=== PATIENT | male | born 1940 | race Caucasian/White ===

== ENCOUNTER 2022-05-11 12:25 | Inpatient (IN) | payer OTHER ==
[~2022-05-11] VITALS: Ht 170.2 cm; Wt 78.0 kg
[2022-05-11] MEDS ORDERED: Simvastatin20 MG PO (13:16)
[2022-05-11] MEDS ORDERED: FINA5 (13:17)
[2022-05-11] MEDS ORDERED: ADALAT CC30 M1 PO (13:17)
[2022-05-11] MEDS ORDERED: TAMS.4ER PO (13:18)
[2022-05-11] MEDS ORDERED: LISI5 (13:18)
[2022-05-11] MEDS ORDERED: BISOPROLOL-HCT1 EAC2 PO (13:18)
[2022-05-11] MEDS ORDERED: TIMO10T (13:20)
[2022-05-11] MEDS ORDERED: FURO20 PO (13:20)
[2022-05-11] MEDS ORDERED: PANT40 (13:20)
[2022-05-11] MEDS ORDERED: 1/2 NS 250ml250 ML (13:21)
[2022-05-11 13:39] LABS: BASOPHILS ABSOLUTE AUTO 0.04 K/mm3 (0.00-0.23); BASOPHILS PERCENT AUTO 0 % (0-2); EOSINOPHILS ABSOLUTE AUTO 0.08 K/mm3 (0.00-0.68); EOSINOPHILS PERCENT AUTO 0 % (0-6); Hematocrit 33.9 % (37.0-53.0); Hemoglobin 11.6 g/dL (13.5-17.5); IMMATURE GRAN ABSOLUTE AUTO 0.14 K/mm3 (0.00-0.10); IMMATURE GRAN PERCENT AUTO 1 % (0-1); LYMPHOCYTES ABSOLUTE AUTO 0.97 K/mm3 (0.84-5.20); LYMPHOCYTES PERCENT AUTO 5 % (21-46); MONOCYTES ABSOLUTE AUTO 1.61 K/mm3 (0.16-1.47); MONOCYTES PERCENT AUTO 8 % (4-13); Mean Corpuscular HGB 34.6 pg (26.0-34.0); Mean Corpuscular HGB Conc 34.2 g/dL (31.5-36.5); Mean Corpuscular Volume 101 fL (80-100); Mean Platelet Volume 9.7 fL (9.1-12.4); NEUTROPHILS PERCENT AUTO 85 % (41-73); Platelet Count 349 K/mm3 (150-400); RDW Coefficient Variation 13.1 % (11.7-14.2); RDW Standard Deviation 48.9 fL (35.1-46.3); Red Blood Cell Count 3.35 M/mm3 (4.30-5.90); White Blood Cell Count 19.34 K/mm3 (4.00-11.30)
[2022-05-11 13:40] LABS: Albumin, Blood 2.6 g/dL (3.4-5.0); Albumin/Globulin Ratio 0.5 (0.8-1.8); Bilirubin, Total 0.4 mg/dL (0.1-1.0); Bun/Creatinine Ratio 23.8 (12.0-20.0); Calcium, Blood 10.4 mg/dL (8.5-10.1); Creatinine, Blood 2.35 mg/dL (0.60-1.20); Globulin, Blood 4.8 g/dL (2.2-4.0); Potassium, Blood 3.5 mmol/L (3.5-5.5); Total Protein, Blood 7.4 g/dL (6.4-8.2)
[2022-05-11 16:10] LABS: Base Excess Venous 6.5 mmol/L; Bicarbonate Venous 29.6 mmol/L (24.0-30.0); PCO2 Venous 42.6 mmHg (38-42); pH Blood Venous 7.46 (7.34-7.37)
[2022-05-11 17:01] LABS: Source, Urine Foley catheter
[2022-05-11 17:28] LABS: Uric Acid, Blood 7.1 mg/dL (3.5-7.2)
[2022-05-11 17:30] LABS: Thyroid Stimulating Hormone 3.19 uIU/mL (0.360-4.800)
[2022-05-11 17:39] LABS: Bilirubin, Urine Neg (Neg); Blood, Urine 1+ (Neg); Color, Urine Yellow (P-Yellow); Glucose Qualitative, Urine Neg (Neg); Ketones, Urine Neg (Neg); Leukocyte Esterase, Urine Neg (Neg); Nitrite, Urine Neg (Neg); Protein, Urine 2+ (Neg); Specific Gravity, Urine 1.015 (1.003-1.022); Urobilinogen, Urine NORM (Normal)
[2022-05-11 17:53] LABS: Appearance, Urine Clear (Clear)
[2022-05-11 17:55] LABS: Amorphous Light (0-Heavy); Bacteria Mod /hpf; Red Blood Cells, Urine 0-2 /hpf (0-2); Squamous Epithelial Cells Few /hpf (Few)
--- NOTE | 2022-05-11 18:58 | NUR ---
PCU ADMIT PT BROUGHT TO PCU-12 BY SANYA FROM ER @ APPROX 1830. PT A&O X3, ABLE TO STAND & AMBULATE FROM [facility] TO PCU BED W/ SBA. PT VSS. SPO2 > 92% ON RA. MONITOR SHOWING SR, HR 60s. PT ABD SEVERELY DISTENDED. PT REPORTING TENDERNESS W/ PALPATION TO ABD RLQ. PT REPORTS LAST BM "ABOUT 4 WEEKS AGO. THAT'S ABOUT WHEN I STOPPED EATING TOO." PT NPO. NS GTT INFUSING PER ORDERS.
[2022-05-12 06:08] LABS: BASOPHILS ABSOLUTE AUTO 0.04 K/mm3 (0.00-0.23); BASOPHILS PERCENT AUTO 0 % (0-2); EOSINOPHILS ABSOLUTE AUTO 0.15 K/mm3 (0.00-0.68); EOSINOPHILS PERCENT AUTO 1 % (0-6); Hematocrit 32.1 % (37.0-53.0); Hemoglobin 10.7 g/dL (13.5-17.5); IMMATURE GRAN ABSOLUTE AUTO 0.11 K/mm3 (0.00-0.10); IMMATURE GRAN PERCENT AUTO 1 % (0-1); LYMPHOCYTES ABSOLUTE AUTO 0.58 K/mm3 (0.84-5.20); LYMPHOCYTES PERCENT AUTO 4 % (21-46); MONOCYTES ABSOLUTE AUTO 1.19 K/mm3 (0.16-1.47); MONOCYTES PERCENT AUTO 8 % (4-13); Mean Corpuscular HGB 34.1 pg (26.0-34.0); Mean Corpuscular HGB Conc 33.3 g/dL (31.5-36.5); Mean Corpuscular Volume 102 fL (80-100); Mean Platelet Volume 9.2 fL (9.1-12.4); NEUTROPHILS ABSOLUTE AUTO 13.04 K/mm3 (1.96-9.15); NEUTROPHILS PERCENT AUTO 86 % (41-73); Platelet Count 317 K/mm3 (150-400); RDW Coefficient Variation 13.1 % (11.7-14.2); RDW Standard Deviation 49.1 fL (35.1-46.3); Red Blood Cell Count 3.14 M/mm3 (4.30-5.90); White Blood Cell Count 15.11 K/mm3 (4.00-11.30)
[2022-05-12 06:25] LABS: Albumin, Blood 2.2 g/dL (3.4-5.0); Albumin/Globulin Ratio 0.5 (0.8-1.8); Bilirubin, Total 0.4 mg/dL (0.1-1.0); Bun/Creatinine Ratio 33.3 (12.0-20.0); Calcium, Blood 9.3 mg/dL (8.5-10.1); Creatinine, Blood 1.47 mg/dL (0.60-1.20); Globulin, Blood 4.1 g/dL (2.2-4.0); Potassium, Blood 3.2 mmol/L (3.5-5.5); Total Protein, Blood 6.3 g/dL (6.4-8.2)
--- NOTE | 2022-05-12 06:33 | NUR ---
NOC SHIFT SUMMARY PT SLEPT WELL OVERNIGHT. ORIENTED X4, MODOC AND LEGALLY BLIND. PLEASANT AND COOPERATIVE. SR ON TELMETRY, VSS PER PT TREND. ON RA. ABD SEVERELY DISTENDED, ABSENT BOWEL SOUNDS NOTED. NOTIFIED DR. PHAN AND BOWEL MEDS ORDERED. PT NPO OVERNIGHT, SIPS WITH MEDS. DENIES PAIN EXCEPT WITH MOVEMENT. SURGERY CONSULT PENDING. WILL PASS ON TO DAY RN
[2022-05-12 08:36] LABS: Magnesium, Blood 2.9 mg/dL (1.6-2.4); Phosphorus, Blood 3.9 mg/dL (2.5-4.9)
[2022-05-12 12:53] LABS: SARS-Cov-2 (COVID-19) PCR, MMC NEGATIVE (NEGATIVE)
--- NOTE | 2022-05-12 13:39 | NUR ---
Spiritual Care Visit. Pt. is resting in bed but responds when I enter the room. Pts. son is present. Pt. is unsettled by the discomfort from his bowel blockage, and displays evidence of visceral pain with any pressure on his abdomen (This occured when his son was adjusting the bed covers). Establish rapport with Pt. At. sons request prayed for Pt. Both Pt. and son verbalize gratitude for the spiritual care visit.
--- NOTE | 2022-05-12 14:16 | NUR ---
05/12/22 1416 Macie Maldonado History, Chart, Medications and Allergies reviewed before start of procedure.DR ESPINAL PROVIDES ANESTHESIA SEE RECORDS
--- NOTE | 2022-05-12 14:19 | NUR ---
PT TO UNIT VIA [facility] FROM [facility]. PT UNABLE TO STAND AND TRANSFER TO BED. PCU STAFF HELPED TRANSFER PT. VSS. Patient confirms NPO status and agrees with scheduled surgery.
--- NOTE | 2022-05-12 17:39 | NUR ---
END OF SHIFT NOTE PT A&O X3, FORGETFUL AT TIMES. VSS. SPO2 > 92% ON RA. MONITOR SHOWING SR, HR 80s. ABD REMAINS SEVERELY DISTENDED. SUPPOSITORY GIVEN PER EMAR W/ NO RESULTS. FLEET ENEMA GIVEN X2 PER EMAR W/ LIQUID BROWN STOOL OUT & THEN SMALL BROWN LUMPY STOOL PRODUCED. PT TAKEN TO OR FOR SIGMOIDOSCOPY. PT BACK TO ROOM. MD TRENT TO PT BEDSIDE TO SPEAK W/ PT & PT SON & DAUGHTER IN . PLAN FOR PT TO BE SEEN BY MD FITZGERALD TOMORROW AM FOR POTENTIAL SURGERY TOMORROW. PT NPO.
[2022-05-13 05:36] LABS: Source, Urine Foley catheter
[2022-05-13 05:55] LABS: Appearance, Urine Hazy (Clear); Bilirubin, Urine Neg (Neg); Blood, Urine Neg (Neg); Color, Urine Yellow (P-Yellow); Glucose Qualitative, Urine Neg (Neg); Ketones, Urine 2+ (Neg); Leukocyte Esterase, Urine Neg (Neg); Nitrite, Urine Neg (Neg); Protein, Urine 2+ (Neg); Urobilinogen, Urine NORM (Normal)
--- NOTE | 2022-05-13 05:57 | NUR ---
Assumed care of pt at 1900. A/Ox4. Legally blind. Able to make needs known. Maintains over 95% on RA. LS clear on top and dim at bases. Shallow breathing pattern. SR on tele with PVC's in the 70's. VSS. Denies any CP/pressure. Did c/o pain once during the night with cath insertion and rolling to do bed change, medicated per emar with great effect. Strong +2 radial pulses bl, and faint +1 tibial and pedals bl. Severe abdominal distention, tender to palpation with guarding noted. Abdomen seems to be getting slightly red. Tympanic URQ and ULQ bowel tones and absent in LLQ and RLQ. Patient began getting a temp, Tmax 100.3. Removed excess blankets, applied fan, Tylenol given. Patient NPO for procedure. Denies N/V. Agrawal cath inserted this am, urinalysis sent. Draining cloudy yellow urine. Cool skin. Scabbing/rash and bruising scattered t/o. Will report to samuel BREAUX.
[2022-05-13 06:08] LABS: Bacteria Few /hpf; Red Blood Cells, Urine 0-2 /hpf (0-2); Squamous Epithelial Cells Few /hpf (Few); White Blood Cells, Urine 0-2 /hpf (0-5)
[2022-05-13 06:14] LABS: BASOPHILS ABSOLUTE AUTO 0.03 K/mm3 (0.00-0.23); BASOPHILS PERCENT AUTO 0 % (0-2); EOSINOPHILS ABSOLUTE AUTO 0.32 K/mm3 (0.00-0.68); EOSINOPHILS PERCENT AUTO 3 % (0-6); Hematocrit 30.2 % (37.0-53.0); Hemoglobin 10.3 g/dL (13.5-17.5); IMMATURE GRAN ABSOLUTE AUTO 0.21 K/mm3 (0.00-0.10); IMMATURE GRAN PERCENT AUTO 2 % (0-1); LYMPHOCYTES ABSOLUTE AUTO 0.79 K/mm3 (0.84-5.20); LYMPHOCYTES PERCENT AUTO 6 % (21-46); MONOCYTES ABSOLUTE AUTO 1.15 K/mm3 (0.16-1.47); MONOCYTES PERCENT AUTO 9 % (4-13); Mean Corpuscular HGB 34.9 pg (26.0-34.0); Mean Corpuscular HGB Conc 34.1 g/dL (31.5-36.5); Mean Corpuscular Volume 102 fL (80-100); Mean Platelet Volume 9.4 fL (9.1-12.4); NEUTROPHILS ABSOLUTE AUTO 10.47 K/mm3 (1.96-9.15); NEUTROPHILS PERCENT AUTO 81 % (41-73); Platelet Count 316 K/mm3 (150-400); RDW Coefficient Variation 13.2 % (11.7-14.2); RDW Standard Deviation 50.4 fL (35.1-46.3); Red Blood Cell Count 2.95 M/mm3 (4.30-5.90); White Blood Cell Count 12.97 K/mm3 (4.00-11.30)
[2022-05-13 06:38] LABS: Bun/Creatinine Ratio 36.3 (12.0-20.0); Calcium, Blood 8.8 mg/dL (8.5-10.1); Creatinine, Blood 1.13 mg/dL (0.60-1.20); Potassium, Blood 3.3 mmol/L (3.5-5.5)
--- NOTE | 2022-05-13 08:45 | NUR ---
PT GONE TO OR
--- NOTE | 2022-05-13 08:49 | NUR ---
History, Chart, Medications and Allergies reviewed before start of procedure.Pre-Op teaching done. Pt verbalizes understanding. Patient confirms NPO status and agrees with scheduled surgery.
--- NOTE | 2022-05-13 10:02 | NUR ---
Patient gave this student permission to provide care today.
[2022-05-13] MEDS ORDERED: LATANOPROST2.5 M3 BOTHEYES (18:11)
--- NOTE | 2022-05-13 18:50 | NUR ---
END OF SHIFT NOTE PT GONE TO OR FROM APPROX [id number] TODAY. PT BROUGHT BACK FROM OR W/ ILEOSTOMY & ABD MIDLINE DRESSING C/D/I W/ SMALL DRAINAGE ON DRESSING OUTLINED BY OR STAFF PRIOR TO PT ARRIVAL BACK TO UNIT. ABD NO LONGER SEVERELY DISTENDED. PT DENIES PAIN UPON ARRIVAL TO UNIT. EPHRAIM TO PT BEDSIDE. PT REMAINS NPO. EPHRAIM W/ ORDER FOR IV FLUIDS UNTIL SURGEON OKAY FOR PO INTAKE. PT THEN MEDICATED W/ PRN IV FENTANYL PER EMAR X1 THIS SHIFT FOR RETURING ABD PAIN RATED 5/10. PT SLEEPING IN RM. FAMILY AT BEDSIDE. NS GTT INFUSING PER ORDERS. VSS. SPO2 > 92% ON RA. LEON CATH PATENT & DRAINING. ILEOSTOMY W/ NO OUTPUT.
[2022-05-14 04:12] LABS: BASOPHILS ABSOLUTE AUTO 0.03 K/mm3 (0.00-0.23); BASOPHILS PERCENT AUTO 0 % (0-2); EOSINOPHILS ABSOLUTE AUTO 0.01 K/mm3 (0.00-0.68); EOSINOPHILS PERCENT AUTO 0 % (0-6); Hemoglobin 10.3 g/dL (13.5-17.5); IMMATURE GRAN ABSOLUTE AUTO 0.16 K/mm3 (0.00-0.10); IMMATURE GRAN PERCENT AUTO 1 % (0-1); LYMPHOCYTES ABSOLUTE AUTO 0.73 K/mm3 (0.84-5.20); LYMPHOCYTES PERCENT AUTO 6 % (21-46); MONOCYTES ABSOLUTE AUTO 0.69 K/mm3 (0.16-1.47); MONOCYTES PERCENT AUTO 6 % (4-13); Mean Corpuscular HGB 35.2 pg (26.0-34.0); Mean Corpuscular HGB Conc 34.3 g/dL (31.5-36.5); Mean Corpuscular Volume 102 fL (80-100); Mean Platelet Volume 9.8 fL (9.1-12.4); NEUTROPHILS ABSOLUTE AUTO 10.88 K/mm3 (1.96-9.15); NEUTROPHILS PERCENT AUTO 87 % (41-73); NRBC ABSOLUTE 0.02 K/mm3 (0.00-0.02); NRBC Auto 0.2 /100 WBC (0.0-0.2); Platelet Count 313 K/mm3 (150-400); RDW Coefficient Variation 13.5 % (11.7-14.2); RDW Standard Deviation 51.7 fL (35.1-46.3); Red Blood Cell Count 2.93 M/mm3 (4.30-5.90)
[2022-05-14 06:33] LABS: Albumin, Blood 1.5 g/dL (3.4-5.0); Anion Gap 10 mmol/L (6-16); Blood Urea Nitrogen 49 mg/dL (8-24); Bun/Creatinine Ratio 23.1 (12.0-20.0); CO2, Blood 22 mmol/L (21-32); Calcium, Blood 7.7 mg/dL (8.5-10.1); Chloride, Blood 110 mmol/L (98-108); Creatinine, Blood 2.12 mg/dL (0.60-1.20); Glomerular Filtration Rate 30 (60-); Glucose, Blood 163 mg/dL (70-99); Phosphorus, Blood 3.6 mg/dL (2.5-4.9); Potassium, Blood 4.6 mmol/L (3.5-5.5); Sodium, Blood 142 mmol/L (136-145)
--- NOTE | 2022-05-14 06:37 | NUR ---
END OF SHIFT SUMMARY PT VERY SENSITIVE TO DILAUDID. IT WAS EFFECTIVE AT PAIN RELIEVE BUT PT SLEPT HARD. HE WOULD WAKE TO VOICE BUT WHILE SLEEPING WAS MOUTH BREATHING AND HAVING 5-10 SEC APNEA. PUT 5 LITERS NC IN NOSE DID NOT INITIALLY HELP THEN PUT NC IN MOUTH AND NOW SATS MAINTAIN GREATER THAN 90 %. TAUGHT PT HOW TO SPLINT ABDOMENT TO HELP WITH PAIN WHEN COUGHING. PT REPORTS FOR PAST FEW WEEKS HE HAS BEEN COUGHING UP MODERATE AMOUNTS OF SPUTUM. HAD PT COUGH SUCTIONS MOUTH AND ENCOURAGED PT TO COUGH AND DEEP BREATH TO PREVENT LUNG INFECTIONS. WILL GIVE BEDSIDE REPORT TO ONCOMING RN. WILL CONTINUE TO MONITOR.
[2022-05-14 10:33] LABS: PCO2 Arterial 34.5 mmHg (35-45); PO2 Arterial 51.1 mmHg (80-100); pH Blood Arterial 7.47 (7.35-7.45)
--- NOTE | 2022-05-14 11:00 | NUR ---
PT WITH INCREASED O2 DEMAND, SPO2 CONTINUES TO DROP ON HIGH FLOW NASAL CANNULA AND NRB MASK. RT TO BEDSIDE, DR YE AT BEDSIDE, PT PLACED ON BIPAP WITH IMMEDIATE IMPROVEMENT IN SPO2 AND HEART RATE. PT RESTING CALMLY IN BED. FAMILY AT BEDSIDE
--- NOTE | 2022-05-14 12:16 | NUR ---
PT NOW REFUSES TO CONTINUE TO WEAR BIPAP, PT ONLY ALLOWS FOR NASAL CANNULA APPLICATION, HE IS MOUTH BREATHING, CANNULA PLACED IN MOUTH ON 10L WITH SPO2 RANGING HIGH 80s LOW 90s. OTHERWISE VSS.
--- NOTE | 2022-05-14 16:47 | NUR ---
PT FROM AIRVO TO BIPAP SPO2 DROPPED INTO THE 60s THIS RN WAS UNABLE TO GET SPO2 TO RECOVER DESPITE MAXING OUT AIRVO O2 SETTING AND REPOSITIONING. PT RETURNED TO BIPAP, RT CALLED TO ROOM, NEBULIZER TREATMENT IN PROGRESS NOW. BIPAP SETTINGS 12/6 90% FIO2, RR 26, SPO2 89%. PT ALERT REMAINS SLEEPY. BP 128/58.
--- NOTE | 2022-05-14 18:01 | NUR ---
PT HAS BEEN BETWEEN BIPAP, AIRVO AND NASAL CANNULA T/O THE DAY. PT IS CURRENTLY ON BIPAP, WHICH HE IS CONFUSED AND OFTEN DISASSEMBLING THE MASK. PT IS ALERT, THIS AM WAS MORE A/O THAN THIS EVENING, PT HAS PROGRESSIVELY BECAME MORE CONFUSED THE AY HAS WENT ON. NO DRAINAGE NOTED FROM FRANCISCO JAVIER DRAIN TO MIDLINE ABD, SCANT OUTPUT FROM ILEOSTOMY. PT WITH VERY SMALL AMOUNT OF URINE OUTPUT DESPITE LASIX ADMINISTRATION. PT DID HAVE A REPEAT CHEST XRAY TODAY A SMALL PLEURAL EFFUSION NOTED TO LEFT LOBE.
[2022-05-15 04:22] LABS: BASOPHILS ABSOLUTE AUTO 0.03 K/mm3 (0.00-0.23); BASOPHILS PERCENT AUTO 0 % (0-2); EOSINOPHILS ABSOLUTE AUTO 0.17 K/mm3 (0.00-0.68); EOSINOPHILS PERCENT AUTO 1 % (0-6); Hematocrit 27.2 % (37.0-53.0); Hemoglobin 9.2 g/dL (13.5-17.5); IMMATURE GRAN ABSOLUTE AUTO 0.32 K/mm3 (0.00-0.10); IMMATURE GRAN PERCENT AUTO 2 % (0-1); LYMPHOCYTES ABSOLUTE AUTO 0.99 K/mm3 (0.84-5.20); LYMPHOCYTES PERCENT AUTO 7 % (21-46); MONOCYTES PERCENT AUTO 5 % (4-13); Mean Corpuscular HGB 34.8 pg (26.0-34.0); Mean Corpuscular HGB Conc 33.8 g/dL (31.5-36.5); Mean Corpuscular Volume 103 fL (80-100); Mean Platelet Volume 9.4 fL (9.1-12.4); NEUTROPHILS ABSOLUTE AUTO 12.44 K/mm3 (1.96-9.15); NEUTROPHILS PERCENT AUTO 84 % (41-73); NRBC ABSOLUTE 0.02 K/mm3 (0.00-0.02); NRBC Auto 0.1 /100 WBC (0.0-0.2); Platelet Count 299 K/mm3 (150-400); RDW Coefficient Variation 13.6 % (11.7-14.2); RDW Standard Deviation 52.4 fL (35.1-46.3); Red Blood Cell Count 2.64 M/mm3 (4.30-5.90); White Blood Cell Count 14.75 K/mm3 (4.00-11.30)
[2022-05-15 04:37] LABS: Albumin, Blood 1.5 g/dL (3.4-5.0); Anion Gap 8 mmol/L (6-16); Blood Urea Nitrogen 58 mg/dL (8-24); Bun/Creatinine Ratio 20.6 (12.0-20.0); CO2, Blood 27 mmol/L (21-32); Calcium, Blood 7.6 mg/dL (8.5-10.1); Chloride, Blood 107 mmol/L (98-108); Creatinine, Blood 2.81 mg/dL (0.60-1.20); Glomerular Filtration Rate 21 (60-); Glucose, Blood 156 mg/dL (70-99); Phosphorus, Blood 3.5 mg/dL (2.5-4.9); Potassium, Blood 3.6 mmol/L (3.5-5.5); Sodium, Blood 142 mmol/L (136-145)
--- NOTE | 2022-05-15 05:33 | NUR ---
END OF SHIFT SUMMARY PT HAD TO BE PUT ON BIPAP WAS DROPPING SATS INTO LOW 80'S ON HIGH FLOW THIS MORNING. HR WOULD TACH UP TO 150'S BUT QUICKLY GO BACK TO 110-125 RANGE. PT IS FORGETFUL AND INTERMITTENTLY CONFUSED. THOUGHT HE WAS IN [place]. KEEPS ASKING ABOUT LOCATION OF [facility]. PT ONLY HAD ABOUT 500 MLS OF URINE OUT OVERNIGHT BUT DID HAVE 500 MLS OUT OF COLOSTOMY. PT CONFUSION GETTING MORE FREQUENT HARDER TO REDIRECT AND PT GETS IRRITABLE WITH STAFF. WILL GIVE BEDSIDE REPORT TO ONCOMING SHIFT.
--- NOTE | 2022-05-15 12:09 | NUR ---
CARDIZEM DRIP BEGAN AT 5ML/HR WILL TITRATE. HR HIGH 190s. PT ALERT, DENIES CP, REPORTS NO CHANGE IN WORK OF BREATHING. PT HAD RECIEVED 5MG CARDIZEM BOLUS WITH NO CHANGE IN RATE. CT HAS BEEN NOTIFIED THAT VQ SCAN WILL NOT BE POSSIBLE PT IS NOT CURRENTLY STABLE ENOUGH FOR TEST. PT IS ON AIRVO AT THIS TIME, BUT IS NOW BEING SWITCHED TO BIPAP HIS SPO2 WILL NOT STAY ABOVE LOW 80s ON AIRVO.
--- NOTE | 2022-05-15 13:00 | NUR ---
PT TO ICU-4 FROM PCU-12. PT ON BIPAP AT 15L 100% O2, RR 23. LAB IN ROOM FOR DRAW, XRAY HERE. IV CARDIZEM STOPPED, AMIODARONE STARTED AT 1 MCG/MIN WITH ORDERS TO CONTINUE FOR 6 HOURS THEN 0.5 FOR 18 HOURS. PT SKIN ASSESSED WITH NO APPEARANCE OF PRESSURE SORES. LEON CATHETER DRAINING TO GRAVITY WITH YELLOW URINE. AND AREA IS TENDER AROUND SURGICAL AREA WHERE ILEOSTOMY PLACE A FEW DAYS PRIOR. FAMILY AT BEDSIDE AT THIS TIME. SEE ASSESSMENT FOR FURTHER INFORMATION.
--- NOTE | 2022-05-15 13:15 | NUR ---
DR LINDSEY CALLED TO ROOM THERE CHANGE IN HR WITH CARDIZEM AT 15MG/HR. BIPAP SETTINGS ARE ARE MAXED OUT WITH SPO2 REMAINING IN HIGH 80s. DECISION WAS MADE TO TRANSFER PT TO ICU. [facility] ICU CHARGE NURSE TO ROOM TO ASSESS PT. PT WILL BE TRANSFERED TO ICU 4.
--- NOTE | 2022-05-15 13:27 | NUR ---
PT TRANSFERED TO ICU 4, REPORT TO SHERRIE RN IN ICU. PT TRANSFERED TO ICU ON BIPAP 12/10 100% FIO2 SPO2 89%. CARDIZEM DRIP 15ML/HR, HR 190s. DR LINDSEY HAS UPDATED FAMILY OF TRANSFER TO ICU. PT WAS NOT ABLE TO GO FOR V-Q SCAN R/T HR.
--- NOTE | 2022-05-15 13:45 | NUR ---
PT CAME TO ICU-4 AT APPROX 1330. THIS RN DID NOT RECIEVE REPORT FROM RN TRANSFERING PT FROM PCU. SEE ASSESSMENT FOR MORE INFORMATION.
[2022-05-15 14:03] LABS: Anti-Xa UFH, PHA Monitoring <0.10 IU/mL; International Normalized Ratio 1.04; Prothrombin Time Results 10.9 Sec (9.7-11.5)
[2022-05-15 15:50] LABS: Bun/Creatinine Ratio 19.6 (12.0-20.0); Calcium, Blood 7.8 mg/dL (8.5-10.1); Creatinine, Blood 2.96 mg/dL (0.60-1.20); Magnesium, Blood 2.6 mg/dL (1.6-2.4); Potassium, Blood 3.7 mmol/L (3.5-5.5)
--- NOTE | 2022-05-15 18:08 | NUR ---
SUMMARY Assumed care of pt on arrival to ICU 4 from PCU 12 at 1315. Transferred due to upward trend of HR, unresponsive to cardizem, downward trend of BP, and SpO2 <90% despite BiPAP with high pressure and 100% FiO2. Slid from PCU bed to ICU bed using slider sheet and 6 staff. End of shift assessment is as follows: Neuro/Musc/Psych: A&O x 3. Speech difficult to understand beneath BiPAP mask, but pt provides contextually appropriate answers to questions and conversation. Moves all extremities with equal strength and range of motion. Reports widespread abdominal pain. Especially tender on palpation. Pt given pillow and educated on holding it against surgical site when coughing. No pain meds given since arrival to ICU, pt has been able to rest comfortably in absence of stimulation. Pt pleasant and cooperative with care. Respiratory: Intially diminshed breath sounds t/o, but after wearing BiPAP for a while, pt had zoya present to XU. Plan to send sputum culture, however pt has not been able to produce a specmien. Cough is weak and nonproductive. 5 minute break given from BiPAP for oral care. Pt tolerated break for approx 4 minutes and then SpO2 dropped to 70s with 60 LPM and 100% FiO2. Placed back on BiPAP and recovered within 5 mintues. Current BiPAP settings are 16/10 and 80% FiO2. Cardiac: Fast rate atrial fibrillation persists. Reportedly unresponsive to diltiazem. Amiodarone started. Minimal improvement noted. Two fluid boluses of 250 mL given, resulted in improved BP. 2+ pulses radial, pedal, posttibial. Capillary refill <3 seconds BUE and BLE. Generalized dependent edema BUE. GI: Normal BT in all quadrants. Tender on palpation in all quadrants. Illeostomy to RLQ has residual output in collection bag that is brown and liquid in appearance. Dr Prince is aware of pt's abdominal tenderness and states this is expected considering the extent of abdominal surgery performed. States that pt is allowed to have PO intake as long as he is not at risk of aspiration. : Agrawal catheter in place, patent and draining clear yellow urine. Skin: Abd midline incision covered with FRANCISCO JAVIER dressing C/D/I, per documentation, pt is POD 2. No signs of pressure injury to sacrum. Scattered scaly texture to bilateral forearms.
--- NOTE | 2022-05-15 20:45 | NUR ---
ASSUMPTION OF CARE: ASSUMED CARE OF PT AT 1900. PT IS LAYING IN BED AND ON BIPAP WITH SETTINGS 16/10, RATE OF 14, AND FIO2 AT 100%. PT IS BIPAP DEPENDENT AT THIS TIME AND IS OBSERVERD DESATING WITH O2 LEVELS WHEN MASK IS TAKEN OFF BREIFLY AND PT TAKES AN EXTENDED TIME TO RECOVER. ONCE RECOVERED, PT O2 LEVELS MAINTAINING 98< AND RR 18-20. PT HAS A CONTINUOUS KICK PLATE INSTALLER IN PLACE AND HR IN THE 80'S AND SBP 130'S. PT HAS AN AMIODARONE GTT AT 0.5 MG/HR. PT IS A&O X 3-4; HE IS ABLE TO STATE WHERE HE IS AND THE YEAR BUT BECOMES CONFUSED AT TIME, EASILY REORIENTED. PT HAS AN ABD MIDLINE INCISION WITH A FRANCISCO JAVIER DRESSING IN PLACE THAT IS C/D/I. MODERATE ABD DISTENTION OBSEREVED AND THERE ARE HYPOACTIVE BS IN ALL FOUR QUADRANTS; PALPATION NOT ASSESSED D/T TO VERBAILIZATION OF SENSITIVITY/PAIN IN AREA ALREADY. PT 2 DAYS POST-OP FROM COLON RESECTION. THERE IS AN STOMA IN THE RLQ THAT IS MOIST AND RED WITH A DARK-BROWN, LIQUID OUTPUT IN OSTOMY POUCH. PT HAS A LEON IN PLACE THAT IS DRAINING TO GRAVITY; URINE YELLOW AND CLEAR. PT HAS WARM EXTERMIEIES AND PALPABLE PULSES IN UPPER EXTERITIES AND DOPPLER FOR PEDAL PULSES. PT HAS WARM EXTREMITIES AND CAAP REFIL < 3 SECONDS. CALL LIGHT IN REACH, BED LOWERED, WILL CONTINUE TO MONITOR THROUGHOUT THE NIGHT.
[2022-05-16 04:57] LABS: BASOPHILS ABSOLUTE AUTO 0.05 K/mm3 (0.00-0.23); BASOPHILS PERCENT AUTO 0 % (0-2); EOSINOPHILS ABSOLUTE AUTO 0.57 K/mm3 (0.00-0.68); EOSINOPHILS PERCENT AUTO 4 % (0-6); Hematocrit 25.7 % (37.0-53.0); Hemoglobin 8.6 g/dL (13.5-17.5); IMMATURE GRAN ABSOLUTE AUTO 0.64 K/mm3 (0.00-0.10); IMMATURE GRAN PERCENT AUTO 4 % (0-1); LYMPHOCYTES ABSOLUTE AUTO 0.94 K/mm3 (0.84-5.20); LYMPHOCYTES PERCENT AUTO 7 % (21-46); MONOCYTES ABSOLUTE AUTO 0.84 K/mm3 (0.16-1.47); MONOCYTES PERCENT AUTO 6 % (4-13); Mean Corpuscular HGB 34.8 pg (26.0-34.0); Mean Corpuscular HGB Conc 33.5 g/dL (31.5-36.5); Mean Corpuscular Volume 104 fL (80-100); Mean Platelet Volume 9.5 fL (9.1-12.4); NEUTROPHILS ABSOLUTE AUTO 11.39 K/mm3 (1.96-9.15); NEUTROPHILS PERCENT AUTO 79 % (41-73); Platelet Count 278 K/mm3 (150-400); RDW Coefficient Variation 13.7 % (11.7-14.2); RDW Standard Deviation 52.3 fL (35.1-46.3); Red Blood Cell Count 2.47 M/mm3 (4.30-5.90); White Blood Cell Count 14.43 K/mm3 (4.00-11.30)
[2022-05-16 05:17] LABS: Alanine Aminotransfer (ALT/SGP 45 U/L (12-78); Albumin, Blood 1.4 g/dL (3.4-5.0); Albumin/Globulin Ratio 0.4 (0.8-1.8); Alk Phos 64 U/L (50-136); Anion Gap 9 mmol/L (6-16); Aspartate Aminotrans (AST/SGOT 56 U/L (12-37); Bilirubin, Total 0.4 mg/dL (0.1-1.0); Blood Urea Nitrogen 58 mg/dL (8-24); Bun/Creatinine Ratio 19.9 (12.0-20.0); CO2, Blood 23 mmol/L (21-32); Calcium, Blood 7.8 mg/dL (8.5-10.1); Chloride, Blood 108 mmol/L (98-108); Creatinine, Blood 2.91 mg/dL (0.60-1.20); Globulin, Blood 3.9 g/dL (2.2-4.0); Glomerular Filtration Rate 21 (60-); Glucose, Blood 106 mg/dL (70-99); Potassium, Blood 3.8 mmol/L (3.5-5.5); Sodium, Blood 140 mmol/L (136-145); Total Protein, Blood 5.3 g/dL (6.4-8.2)
--- NOTE | 2022-05-16 06:09 | NUR ---
SHIFT SUMMARY: NO ACUTE CHANGES THIS SHIFT. THE PT REMAINS ON BIPAP WITH SETTINGS 16/12, RATE-14, AND FIO2 80%. PT REMAINS BIPAP DEPENDENT. EARLIER IN THE SHIFT THE PT WAS FIGHTING WITH BIPAP MASK AND WAS PULLING IT OFF PERIODICALLY. PT RECIEVED 0.25 MCG FENTANYL TO HELP ABD PAIN AND COMPLIANCE AND PT RESPONDED WELL. GOOD OUPUT FROM THE OSTOMY; 200 MLS. STOMA REMAINS MOIST AND RED. AMIODARONE GTT AT 0.5 MG/HR AND HEPARIN GTT AT 14 UNITS/HR. WILL CONTINUE TO MONITOR UNTIL ONCOMING RN ARRIVES.
--- NOTE | 2022-05-16 15:49 | NUR ---
ROSA ELENA HAS NOW GOTTEN COMFORTABLE WITH THE FULL FACE MASK AFTER MUCH ATTEMPTS TO MAKE HIM COMFORTABLE ON THE CPAP MASK. HE WOULD COMPLAIN THAT HIS NOSE WAS UNCOMFORTABLE AND HE WOULD PULL IT OFF AND READJUST IT AND STILL NOT BE HAPPY. HE IS NOW RESTING WITHOUT FIDGETING AND HIS SATS ARE 94%
--- NOTE | 2022-05-16 18:04 | NUR ---
[facility] (ROSA ELENA) HAS DONE FAIRLY WELL TODAY, HE IS MORE ALERT, MORE ABLE TO COUGH AND ASSIST WITH TURNING THAN HE WAS THIS MORNING. HE HAS BEEN MEDICATED WITH FENTANYL ONCE THIS SHIFT. HE IS TOLERATING THE FULL FACE MASK FOR THE BIPAP (16/05) 85% VERY WELL. HE IS LESS IRRITATED WITH THE MASK. HE CONTINUES WITH THE MIDLINE INCISION COVERED WITH FRANCISCO JAVIER DRESSING CLEAN/DRY/INTACT. HIS ILEOSTOMY PUT OUT ~200ML OF GREEN/BROWN RETURN. BILATERAL PG IN THE UPPER ARMS, RIGHT FOREARM PIV. HEPARIN GTT CONTINUES @ 14U/KG/HR. HE WAS ABLE TO TAKE IN HIS BLOOD PRESSURE MED AND WATER WITHOUT ANY DIFFICULTY. LEON WITH CLEAR YELLOW RETURN. TURNED AND REPOSITIONED Q2, SOME TURNS ONLY SLIGHTLY FOR OXYGENATION. USING THE SPLINTING BLANKET APPROPRIATELY.
--- NOTE | 2022-05-16 21:47 | NUR ---
ASSUMPTION OF CARE: ASSUMED CARE OF PT AT 1900; BESIDE REPORT RECIEVED FROM SAEID TREVINO. PT IS LAYING BED AND IS RESPONSOVE TO VERABL STIMULI. PT PLEASANT AND APPROPRIATE; FOLLOWING COMMANDS. PT ON BIPAP WITH SETTINGS 16/10 FIO2 75% AND A RATE OF 14. O2 LEVELS MAINTAINING 94<. PT HAS NO C/O OF SOB OR CHEST PAIN AT THIS TIME. PT HAS A CONTINUOUS DIESEL ENGINE ENGINEER IN PLACE WITH HR IN THE 80'S, SBP 150-160'S AND SR. PT HAS MILD ABD DISTENTION; MIDLINE INCISION WITH FRANCISCO JAVIER DRESSING THAT IS C/D/I. HYPOACTIVE BOWEL SOUNDS IN ALL FOUR QUADRANTS. PT HAS NO C/O OF PAIN IN HIS ABD AT THIS TIME. WARM BLANKET IN PLACE OVER ABD TO HELP WITH PAIN AND SPLINTING HIS COUGH. PT HAS AN OSTOMY IN PLACE IN THE RLQ THAT HAS DARK-BROWN, LIQUID OUTPUT; STOMA APPEARS MOIST, RED. PT HAS A LEON CATH IN PLACE THAT IS DRAINING TO GRAVITY; URINE CLEAR AND YELLOW. PT HAS COOL HANDS AND FEET, PPP X 4, CAP REFIL MAINTAINING < 3 SECONDS. PT HAS HEPARIN GTT 14 UN/HR AND TKO 15 MLS/HR. AT 2014 PT GIVEN BIPAP MASK BREAK WITH OXYMIZER IN PLACE @10 L; PT IS TOLERATING MASK BREAK WITH O2 LEVELS 90<. PT ABLE TO DRINK WATER APPROPRIATELY AND TAKE MEDS SAFELY. PT PLACED BACK ON BIPAP DUANE ABOUT 3-5 MINUTES DUE TO O2 LEVELS DROPPING TO MID 80'S. ONCE BIPAP MASK PLACED, O2 LEVELS RECOVERED TO THE 90'S. AT 2034 PT O2 LEVELS BEGAN DROPPING TO 85-88, PT PLACED ON 100% FIO2 AND MONITOR FOR LEVELS TO IMPROVE. O2 LEVELS BEGAN TRENDING DOWN TO 77-80. RT CALLED AT 2039 WITH UPDATE AND STATED TO OBSERVE PT FOR ANOTHER TEN MINTUES TO SEE IF HE WOULD RECOVER O2 LEVELS. PT CONTINUED TO DROP IN O2 LEVELS REACHING 67, RT CALLED AGAIN AT 2046 AND RT PRIYANKA AT BEDSIDE TO ASSESS PT. AT THIS, PT REPOSITIONED, ENCOURAGED TO COUGH, AND NEBULIZER TREATMENT ADMINISTERED BY RT. BIPAP SETTINGS INCREASED TO 20/10, FIO2 100% AND RATE 14. PT O2 LEVELS BEGAN TO RECOVER SLOWLY UNTIL THE PT REACHED 94<. STAT CXR ORDERED AT THIS TIME. PT O2 LEVELS REMAIN STABLE AT THIS TIME. CALL PLACED TO DR. ARREOLA AT 2104 TO UPDATE ON EVENT OF RESPIRATORY DISTRESS AND PRESSURE CHANGES ON BIPAP. PER DR ARREOLA, NO NEW ORDERS. DR EUBANKS CALLED AT 2109 AND UPDATED ON EVENTS AND ASKED TO REVIEW CXR PER DR ARREOLA. CURRENT BIPAP SETTINGS 20/14, FI02 100%, AND RATE 14. WILL CONTINUE TO MONITOR CLOSELY.
[2022-05-17 04:17] LABS: BASOPHILS ABSOLUTE AUTO 0.06 K/mm3 (0.00-0.23); BASOPHILS PERCENT AUTO 1 % (0-2); EOSINOPHILS ABSOLUTE AUTO 0.57 K/mm3 (0.00-0.68); EOSINOPHILS PERCENT AUTO 5 % (0-6); IMMATURE GRAN ABSOLUTE AUTO 0.69 K/mm3 (0.00-0.10); IMMATURE GRAN PERCENT AUTO 5 % (0-1); LYMPHOCYTES ABSOLUTE AUTO 0.81 K/mm3 (0.84-5.20); LYMPHOCYTES PERCENT AUTO 6 % (21-46); MONOCYTES ABSOLUTE AUTO 0.92 K/mm3 (0.16-1.47); MONOCYTES PERCENT AUTO 7 % (4-13); Mean Corpuscular HGB 34.4 pg (26.0-34.0); Mean Corpuscular HGB Conc 33.3 g/dL (31.5-36.5); Mean Corpuscular Volume 103 fL (80-100); Mean Platelet Volume 9.7 fL (9.1-12.4); NEUTROPHILS ABSOLUTE AUTO 9.72 K/mm3 (1.96-9.15); NEUTROPHILS PERCENT AUTO 76 % (41-73); NRBC ABSOLUTE 0.02 K/mm3 (0.00-0.02); NRBC Auto 0.2 /100 WBC (0.0-0.2); Platelet Count 308 K/mm3 (150-400); RDW Coefficient Variation 13.7 % (11.7-14.2); RDW Standard Deviation 51.8 fL (35.1-46.3); Red Blood Cell Count 2.62 M/mm3 (4.30-5.90); White Blood Cell Count 12.77 K/mm3 (4.00-11.30)
[2022-05-17 04:39] LABS: Alanine Aminotransfer (ALT/SGP 43 U/L (12-78); Albumin, Blood 1.5 g/dL (3.4-5.0); Albumin/Globulin Ratio 0.3 (0.8-1.8); Alk Phos 63 U/L (50-136); Anion Gap 11 mmol/L (6-16); Aspartate Aminotrans (AST/SGOT 42 U/L (12-37); Bilirubin, Total 0.4 mg/dL (0.1-1.0); Blood Urea Nitrogen 55 mg/dL (8-24); Bun/Creatinine Ratio 20.1 (12.0-20.0); CO2, Blood 21 mmol/L (21-32); Calcium, Blood 8.3 mg/dL (8.5-10.1); Chloride, Blood 110 mmol/L (98-108); Creatinine, Blood 2.73 mg/dL (0.60-1.20); Globulin, Blood 4.5 g/dL (2.2-4.0); Glomerular Filtration Rate 22 (60-); Glucose, Blood 84 mg/dL (70-99); Potassium, Blood 3.8 mmol/L (3.5-5.5); Sodium, Blood 142 mmol/L (136-145); Vancomycin, Random 11.4 ug/mL
[2022-05-17 05:17] LABS: PCO2 Arterial 31.8 mmHg (35-45); PO2 Arterial 71.9 mmHg (80-100); pH Blood Arterial 7.39 (7.35-7.45)
--- NOTE | 2022-05-17 06:11 | NUR ---
SHIFT SUMMARY: PT REMAINS A&O X [address], SETTINGS 22/16, FIO2 80% AND RATE 14. PT DESATS QUICKLY WHEN MASK IS OFF, NO MASKS BREAKS SINCE THE BEGINNING OF THE SHIFT. PT O2 LEVELS HAVE BEEN MAINTAIING 96<. WHEN REPOSITIONING PT ONTO LEFT SIDE, IT IS OBSERVED THAT O2 LEVELS DROP DOWN TO HIGH 70'S LOW 80'S; PT REPOSITIONED TO SUPINE AND RECOVERS TO MID 90'S. PT HAS HR IN THE 70'S AND SBP IN THE 170'S; NO C/O OF CHEST PAIN OR SOB AT THIS TIME. PT HAS MIDLINE ABD INCISION WITH FRANCISCO JAVIER DRESSING THAT IS C/D/I. NO CHANGES WITH OSTOMY/ STOMY APPEARANCE [address] THAT IS DRAINING TO GRAVITY; 650 OUTPUT. PT CONFUSED AT TIME BUT IS REORIENTED. STILL ATTEMPTS TO TAKE MASK OFF BUT EDUCATED ON IMPORTANCE AND IS COOPERATIVE. WILL CONTINUE TO MONITOR UNTIL ONCOMING RN ARRIVES.
--- NOTE | 2022-05-17 07:30 | NUR ---
DR. LINDSEY UPDATED ON PATIENT STATUS. INFORMED THAT SBP HIGH AND PATIENT UNABLE TO TAKE PO METOPROLOL AT THIS TIME BECAUSE OF MENTATION AND ASPIRATION RISK. INFORMED THAT BIPAP PRESSURES INCREASED ON MINUTE CLERK FOR BASIC TRAFFIC. TOUCHED BASE ON NUTRITION. ORDER RECEIVED FOR PRN METOPROLOL FOR SBP OVER 170.
--- NOTE | 2022-05-17 09:20 | NUR ---
INITIAL ASSESSMENT PATIENT ALERT AND ORIENTED TO SELF, FAMILY AND FOLLOWING DIRECTIONS. PATIENT DISORIENTED TO HOSPITAL AND WHY HE IS HERE. PATIENT REORIENTS EASILY BUT IS FORGETFUL. PATIENT LEGALLY BLIND. PATIENT AFEBRILE. PATIENT ONLY COMPLAINS OF PAIN WHEN ABD TOUCHED. PATIENT WEAK BUT ABLE TO MOVE ALL EXTREMITIES. PATIENT ON BIPAP AT 22/16 AND 80% FIO2. LUNGS CLEAR IN UPPER LOBES AND DIMINISHED IN LOWER LOBES. PATIENT HAS OCCASIONAL, WEAK, NONPRODUCTIVE COUGH. PATIENT SR WITH PACS, HR 70S TO 80S. SBP 150S TO 170S. ABDOMEN MILDLY DISTENDED, SOFT, TENDER; NORMOACTIVE BOWEL SOUNDS NOTED. ILEOSTOMY NOTED TO RUQ; STOMA APPEARS WNL; DRAINING DARK BROWN/ GREEN LIQUID. FRANCISCO JAVIER WOUND VAC TO MIDLINE ABD SURGICAL SITE. LEON DRAINING LIGHT YELLOW COLORED URINE WITH SEDIMENT NOTED. SKIN PALE, DRY AND SCALING. HEPARIN INFUSING AT 14 UNITS/ KG/ HOUR AND NS TKO. BED LOW, CALL LIGHT IN REACH. WILL CONTINUE TO MONITOR PATIENT FREQUENTLY THROUGHOUT SHIFT.
--- NOTE | 2022-05-17 09:48 | NUR ---
DR. NORTON UPDATED ON PATIENT STATUS. INFORMED OF EVERYTHING DR. LINDSEY INFORMED OF THIS AM; SEE PRIOR NURSE NOTE. DR. NORTON CHANGED BIPAP TO CPAP OF 5 AND 50% FIO2. PATIENT SATTING 90% AND GREATER AT THIS TIME. RT INFORMED.
--- NOTE | 2022-05-17 10:52 | NUR ---
DR. NORTON BACK IN ROOM FOR DECREASING SATS DESPITE PLACING BACK ON CPAP.
--- NOTE | 2022-05-17 12:10 | NUR ---
DR. NORTON CONFIRMED PLACEMENT OF DOBHOFF AND STATED IT IS GOOD TO FEED THROUGH.
--- NOTE | 2022-05-17 12:30 | NUR ---
PATIENT AFEBRILE. PATIENT HAS NO COMPLAINTS OF PAIN. HR IN THE 70S. SBP IN THE 180S. PRN IV METOPROLOL GIVEN. BIPAP AT 16/12 AND 60% FIO2. DOBHOFF PLACED. NO OTHER ACUTE CHANGES TO NOTE ON A THIS TIME. WILL CONTINUE TO MONITOR.
--- NOTE | 2022-05-17 16:30 | NUR ---
PATIENT AFEBRILE. HR IN THE 80S. SBP IN THE 180S. PRN HYDRALAZINE GIVEN. PATIENT ON HEATED HIGH FLOW AT 60 L AND 90% FIO2. PATIENT HAS NO COMPLAINTS AT THIS TIME. NO OTHER ACUTE CHANGES TO NOTE ON AT THIS TIME. WILL CONTINUE TO MONITOR.
--- NOTE | 2022-05-17 18:43 | NUR ---
SHIFT SUMMARY PATIENT REMAINED CONFUSED OFF AND ON THROUGHOUT SHIFT. PATIENT PULLED DOBHOFF OUT AND O2 OFF AT END OF SHIFT. PATIENT NOW IN RESTRAINTS. PATIENT STATES HE KEEPS FORGETTING HE IS IN THE HOSPITAL. PATIENT LEGALLY BLIND. PATIENT HAS REMAINED AFEBRILE. PATIENT HAS HAD NO COMPLAINTS OF PAIN UNLESS ABD TOUCHED. PATIENT REMAINS WEAK BUT ABLE TO MOVE ALL EXTREMITIES. PATIENT STARTED SHIFT ON BIPAP OF 22/16 AND 80% FIO2. PATIENT NOW ON HEATED HIGH FLOW OF 60 L AND 85% FIO2. PATIENT TO BE BACK ON BIPAP AT HS PER DR. NORTON. PATIENT UNABLE TO COUGH UP SPUTUM SAMPLE THIS SHIFT. PATIENT REMAINED SR WITH PACS. HR 60S TO 90S. SBP 130S TO 180S. PRN LOPRESSOR AND HYDRALAZINE BOTH GIVEN OT. NORVASC PT GIVEN OT. NO CHANGES TO ABD NOTED. ILEOSTOMY DRAINED 350 MLS OF DARK BROWN/ GREEN COLORED LIQUID. DOBHOFF INSERTED THIS SHIFT AND PATIENT STARTED ON PIVOT 1.5 MLS AT 25 MLS/ HOUR AND 30 ML WATER Q4H. TF GOAL RATE 45 MLS/ HOUR. FRANCISCO JAVIER REMAINS TO MIDLINE ABD INCISION. LEON DRAINED 1000 MLS OF LIGHT YELLOW COLORED URINE WITH SEDIMENT NOTED. NO CHANGES TO SKIN NOTED. PATIENT REPOSITIONED Q2H. COMPLETE BED BATH PERFORMED. HEPARIN REMAINS INFUSING AT 14 UNITS/ KG/ HOUR. NS TKO. SWALLOW EVAL TO BE PERFORMED IN AM; ABLE TO TOLERATE UP TO FULL LIQUID UNLESS SURGEON STATES PATIENT CAN ADVANCE FURTHER. PATIENT HAS NO COMPLAINTS AT THIS TIME. BED LOW, CALL LIGHT IN REACH. REPORT WILL BE GIVEN TO ASSUMING SUPERVISOR CONTACT LENS NURSE SHORTLY.
[2022-05-18 03:53] LABS: Hematocrit 27.2 % (37.0-53.0); Hemoglobin 8.8 g/dL (13.5-17.5); Mean Corpuscular HGB 33.6 pg (26.0-34.0); Mean Corpuscular HGB Conc 32.4 g/dL (31.5-36.5); Mean Corpuscular Volume 104 fL (80-100); Mean Platelet Volume 9.8 fL (9.1-12.4); Platelet Count 324 K/mm3 (150-400); RDW Coefficient Variation 13.7 % (11.7-14.2); RDW Standard Deviation 52.9 fL (35.1-46.3); Red Blood Cell Count 2.62 M/mm3 (4.30-5.90); White Blood Cell Count 12.77 K/mm3 (4.00-11.30)
[2022-05-18 04:09] LABS: Bun/Creatinine Ratio 21.3 (12.0-20.0); Calcium, Blood 8.2 mg/dL (8.5-10.1); Creatinine, Blood 2.49 mg/dL (0.60-1.20); Magnesium, Blood 1.9 mg/dL (1.6-2.4); Phosphorus, Blood 2.9 mg/dL (2.5-4.9); Potassium, Blood 3.3 mmol/L (3.5-5.5)
--- NOTE | 2022-05-18 04:12 | NUR ---
PT VERY CONFUSED TONIGHT. REDIRECTING AND REORIENTING BECOMING MORE DIFFICULT. ENCOUGAGING PT TO SLEEP AND DECREASING STIMULI. VITALS ARE STABLE. BPS <170 AND HR 80S. PT ON BIPAP SINCE 329, PT STARTING TO DESAT. OSTMY BAG/DRESSING CHANGED DUE TO LEAKING. FULL BED BATH GIVE. WCTM.
--- NOTE | 2022-05-18 05:01 | NUR ---
PT SLEEPING WELL TONIGHT ON LOW DOSE DEX GTT. ATTEMPTING TO WEAN GTT OFF THROUGHOUT THE NIGHT AND PT INTERMITTENTLY GETTING AGITATED AND PULLING AT LINES. VITALS STABLE. CIWA WNL. SCORING 3-2.
[2022-05-18 05:21] LABS: BAND PERCENT MAN 3 % (0-8); BASOPHILS PERCENT MAN 0 % (0-2); EOSINOPHILS ABSOLUTE MAN 0.89 K/mm3 (0.00-0.68); EOSINOPHILS PERCENT MAN 7 % (0-6); LYMPHOCYTES ABSOLUTE MAN 1.02 K/mm3 (0.84-5.20); LYMPHOCYTES PERCENT MAN 8 % (21-46); METAMYELOCYTE ABSOLUTE MAN 0.12 K/mm3 (0.00-0.00); METAMYELOCYTE PERCENT MAN 1 % (0-0); MONOCYTES ABSOLUTE MAN 0.12 K/mm3 (0.16-1.47); MONOCYTES PERCENT MAN 1 % (4-13); MYELOCYTE ABSOLUTE MAN 0.12 K/mm3 (0.00-0.00); MYELOCYTE PERCENT MAN 1 % (0-0); NEUTROPHILS ABSOLUTE MAN 10.47 K/mm3 (1.96-9.15); SEG NEUTROPHILS PERCENT MAN 79 % (41-73); TOTAL CELLS COUNTED 100
--- NOTE | 2022-05-18 08:00 | NUR ---
Received report from Noc RN. Patient rest when in room and awakens to verbal stimuli and is confused with communication, he is legally blind. He is on BIPAP at 14/8 at 80% and sats >90%. He pulled ileostomy appliance bag off and replaced after cleaning him up and pulls at mask frequently. Dobhoff in place. He has bilateral PowerGlides and heparin at 14 units/kg/min and NS TKO. He has FRANCISCO JAVIER drain to Midline incision. He has crowder draining to gravity clear yellow urine. MARA
[2022-05-18 08:36] LABS: Vancomycin, Random 14.2 ug/mL
--- NOTE | 2022-05-18 10:01 | NUR ---
Patient has had speech eval and can have clear liquids. He was taken off BIPAP and placed on 6L O2 via NC and sats 98% during eval. gave meds in apple sauce and rinsed down with ice water and tolerated well. After walking out of room he pulled O2 off and sats 90-93%. Dr Guerrero in room doing eval with Dr Cerna and they stated to leave off and eval. Am care and reposition.
--- NOTE | 2022-05-18 13:08 | NUR ---
Patient remains on RA and sats >90%. He also continues to tolerate clear liquids, at 1 cup Q4 hours per Dr Guerrero. He remains in restrains to protect tubes. Surgeon by and stated we could pull Dobhoff and start regular diet. He still slightly confused. Daughter by earlier.
--- NOTE | 2022-05-18 14:55 | NUR ---
Patient pulled Dobhoff out and we removed Shavon drain and applied midline dressing and reinforced ileostomy appliance. He is up in chair and son at chairside we are try no restraints while in chair. He remains on RA and sats 90-94%.
--- NOTE | 2022-05-18 18:13 | NUR ---
Patient has been up in the chair for several hour and tolerating well and would like to remains in chair. He tolerated about 20% of dinner and has been dringing a glass of water about every [address] Guerrero for free water intake. He remains on RA and sats low 90%'s. He can hold short conversation but than becomes confused with other topics. He is able to hold cups or bottles and feed self. ST will reeval for regular diet and surgeon wants, patient states needs lower teeth. Heparin at 14 units/kg/min and NS TKO. He has bilateral Poweglides, both patent .
[2022-05-19 03:44] LABS: Hematocrit 26.6 % (37.0-53.0); Hemoglobin 8.7 g/dL (13.5-17.5); Mean Corpuscular HGB 33.9 pg (26.0-34.0); Mean Corpuscular HGB Conc 32.7 g/dL (31.5-36.5); Mean Corpuscular Volume 104 fL (80-100); Mean Platelet Volume 10.2 fL (9.1-12.4); Platelet Count 324 K/mm3 (150-400); RDW Coefficient Variation 13.9 % (11.7-14.2); RDW Standard Deviation 51.8 fL (35.1-46.3); Red Blood Cell Count 2.57 M/mm3 (4.30-5.90); White Blood Cell Count 12.57 K/mm3 (4.00-11.30)
[2022-05-19 03:58] LABS: Anion Gap 7 mmol/L (6-16); Blood Urea Nitrogen 40 mg/dL (8-24); Bun/Creatinine Ratio 20.2 (12.0-20.0); CO2, Blood 25 mmol/L (21-32); Calcium, Blood 8.6 mg/dL (8.5-10.1); Chloride, Blood 116 mmol/L (98-108); Creatinine, Blood 1.98 mg/dL (0.60-1.20); Glomerular Filtration Rate 33 (60-); Glucose, Blood 107 mg/dL (70-99); Potassium, Blood 3.2 mmol/L (3.5-5.5); Sodium, Blood 148 mmol/L (136-145); Vancomycin, Random 19.5 ug/mL
[2022-05-19 06:03] LABS: BAND PERCENT MAN 1 % (0-8); BASOPHILS ABSOLUTE MAN 0.12 K/mm3 (0.00-0.23); BASOPHILS PERCENT MAN 1 % (0-2); EOSINOPHILS ABSOLUTE MAN 1.25 K/mm3 (0.00-0.68); EOSINOPHILS PERCENT MAN 10 % (0-6); LYMPHOCYTES ABSOLUTE MAN 0.75 K/mm3 (0.84-5.20); LYMPHOCYTES PERCENT MAN 6 % (21-46); MONOCYTES ABSOLUTE MAN 1.13 K/mm3 (0.16-1.47); MONOCYTES PERCENT MAN 9 % (4-13); MYELOCYTE ABSOLUTE MAN 0.25 K/mm3 (0.00-0.00); MYELOCYTE PERCENT MAN 2 % (0-0); NEUTROPHILS ABSOLUTE MAN 9.05 K/mm3 (1.96-9.15); SEG NEUTROPHILS PERCENT MAN 71 % (41-73); TOTAL CELLS COUNTED 100
--- NOTE | 2022-05-19 08:15 | NUR ---
SHIFT ASSESSMENT ASSUMED CARE OF PT @ 0700. PT LAYING IN BED, ALERT AND ORIENTED TO PERSON, PLACE, AND YEAR. PT HAS INTERMITTENT BOUTS OF CONFUSION BUT EASILY REORIENTED. PT DENYING PAIN AT REST, DOES C/O MILD ABD PAIN WITH MOVEMENT. PT ON RA, SATS >90%. HEPARIN GTT INFUSING @ 14U/KG/MIN. ILEOSTOMY BAG AND ABD DRESSING REPLACED. LEON CATH DRAINING YELLOW URINE. WILL MONITOR CLOSELY.
--- NOTE | 2022-05-19 18:08 | NUR ---
SHIFT SUMMARY PT ALERT AND ORIENTED, CONTINUES TO HAVE INTERMITTENT CONFUSION. DAUGHTER AT BEDSIDE SAID HE IS NORMALLY CLEAR. PT EASILY REORIENTED. OVERALL PT IS DOING MUCH BETTER. WORKED WITH PT/OT TODAY. UP TO BEDSIDE CHAIR WITH THE WALKER AND ONE PERSON STANDBY. PT DOES BECOME MILDLY LIGHTHEADED WHILE STANDING BUT RECOVERS QUICKLY. PT DENIES ABDOMINAL AT REST, WAS C/O MILD PAIN WHILE STANDING. ILEOSTOMY DRAINING PASTY STOOL, NO MORE LEAKAGE AFTER FULL DRESSING CHANGE. MIDLINE INCISION C/D/I, NO SIGNS OF BLEEDING FROM INCISION. LEON CATH DRAINING LIGHT YELLOW URINE. PT CHANGED TO SURGICAL FLOOR STATUS, AWAITING ROOM.
[2022-05-20 04:17] LABS: Hemoglobin 9.2 g/dL (13.5-17.5); Mean Corpuscular HGB 34.6 pg (26.0-34.0); Mean Corpuscular HGB Conc 34.1 g/dL (31.5-36.5); Mean Corpuscular Volume 102 fL (80-100); Mean Platelet Volume 10.2 fL (9.1-12.4); Platelet Count 337 K/mm3 (150-400); RDW Standard Deviation 52.1 fL (35.1-46.3); Red Blood Cell Count 2.66 M/mm3 (4.30-5.90); White Blood Cell Count 10.44 K/mm3 (4.00-11.30)
[2022-05-20 04:36] LABS: Bun/Creatinine Ratio 18.9 (12.0-20.0); Calcium, Blood 8.2 mg/dL (8.5-10.1); Creatinine, Blood 1.69 mg/dL (0.60-1.20)
[2022-05-20 05:33] LABS: BAND PERCENT MAN 7 % (0-8); BASOPHILS PERCENT MAN 0 % (0-2); EOSINOPHILS ABSOLUTE MAN 0.41 K/mm3 (0.00-0.68); EOSINOPHILS PERCENT MAN 4 % (0-6); LYMPHOCYTES ABSOLUTE MAN 0.83 K/mm3 (0.84-5.20); LYMPHOCYTES PERCENT MAN 8 % (21-46); METAMYELOCYTE PERCENT MAN 1 % (0-0); MONOCYTES ABSOLUTE MAN 0.41 K/mm3 (0.16-1.47); MONOCYTES PERCENT MAN 4 % (4-13); MYELOCYTE ABSOLUTE MAN 0.31 K/mm3 (0.00-0.00); MYELOCYTE PERCENT MAN 3 % (0-0); NEUTROPHILS ABSOLUTE MAN 8.35 K/mm3 (1.96-9.15); SEG NEUTROPHILS PERCENT MAN 73 % (41-73); TOTAL CELLS COUNTED 100
--- NOTE | 2022-05-20 06:51 | NUR ---
SHIFT SUMMARY: PATIENT SLEPT THROUGHOUT SHIFT IN BETWEEN CARE. COLOSTOMY FELL OFF ONCE, CHANGED DRESSING, MIDLINE INCISION HEALING WELL. k+ THIS AM 3.0. MD NOTIFIED, ORDERS RECIEVED FOR K+. BP ELEVATED. PRN MEDICINE GIVEN PER EMAR.
--- NOTE | 2022-05-20 07:25 | NUR ---
ASSUME CARE: I have assumed care of this patient.
--- NOTE | 2022-05-20 10:25 | NUR ---
Spiritual Care Request. Pt. is awake in bed and welcomes my visit. Pt. is pleasant and displays evidence of looking forward to returning home soon. Re-esatblish rapport and normalize the Pt. experience. Pt. verbalizedc no pressing prayer request needs, and verbalized gratitude for the spiritual care visit.
--- NOTE | 2022-05-20 15:57 | NUR ---
SHIFT/TRANSFER SUMMARY: pt moved from ICU 4 to surgical room 209. NEURO: pt alert and moving all extermities. he is transferring from bed to chair with standby assist. CARDIAC: sinus rhythm on monitor. blood pressure managed well with oral medications RESPIRATORY: CTA on RA GI/: minimal appetite. 300 mls out of illiostomy SKIN: No new breakdown noted PSYCH/SOCIAL: family at bedside throughout the day.
--- NOTE | 2022-05-20 18:27 | NUR ---
PT TRANSFERRED FROM ICU4. PT ORIENTED TO ROOM AND RESTING COMFORTABLY IN BED WITH HIS CALL LIGHT IN REACH.
[2022-05-21 05:28] LABS: BASOPHILS ABSOLUTE AUTO 0.05 K/mm3 (0.00-0.23); BASOPHILS PERCENT AUTO 1 % (0-2); EOSINOPHILS ABSOLUTE AUTO 0.54 K/mm3 (0.00-0.68); EOSINOPHILS PERCENT AUTO 5 % (0-6); Hematocrit 25.6 % (37.0-53.0); Hemoglobin 8.7 g/dL (13.5-17.5); IMMATURE GRAN ABSOLUTE AUTO 0.53 K/mm3 (0.00-0.10); IMMATURE GRAN PERCENT AUTO 5 % (0-1); LYMPHOCYTES ABSOLUTE AUTO 0.86 K/mm3 (0.84-5.20); LYMPHOCYTES PERCENT AUTO 9 % (21-46); MONOCYTES PERCENT AUTO 9 % (4-13); Mean Corpuscular HGB 34.5 pg (26.0-34.0); Mean Corpuscular Volume 102 fL (80-100); Mean Platelet Volume 10.2 fL (9.1-12.4); NEUTROPHILS ABSOLUTE AUTO 7.12 K/mm3 (1.96-9.15); NEUTROPHILS PERCENT AUTO 71 % (41-73); Platelet Count 344 K/mm3 (150-400); RDW Coefficient Variation 13.8 % (11.7-14.2); RDW Standard Deviation 51.3 fL (35.1-46.3); Red Blood Cell Count 2.52 M/mm3 (4.30-5.90)
--- NOTE | 2022-05-21 05:34 | NUR ---
SHIFT SUMMARY PT A&OX4, PLEASANT AND COOPERATIVE. NO ACUTE CHANGES DURING SHIFT, VSS. PT DID NOT NEED PAIN COVERAGE THIS SHIFT. SBA TO BSC. PT CONTINUES TO HAVE LITTLE APPETITE. TELE IS SINUS WITH A FEW PVC'S. OSTOMY OUTPUT GREEN/LIQUIDY. MIDLINE INCISION DRESSING C/D/I. LEON DRAINING TO GRAVITY, YELLOW/CLEAR. CALLS APPROPRIATELY, CALL LIGHT WITHIN REACH.
[2022-05-21 05:58] LABS: Bun/Creatinine Ratio 15.8 (12.0-20.0); Calcium, Blood 8.4 mg/dL (8.5-10.1); Creatinine, Blood 1.58 mg/dL (0.60-1.20); Potassium, Blood 3.2 mmol/L (3.5-5.5)
--- NOTE | 2022-05-21 18:45 | NUR ---
SHIFT SUMMARY PT POD #7 FOR COLECTOMY WITH ILEOSTOMY. NO COMPLAINTS THIS SHIFT. PT'S APPETITE CONTINUES TO BE POOR AND GIVEN ENSURE. PT WORKED WITH P.T./OT TODAY. VSS. HEPARIN DRIP DISCONTINUED.
[2022-05-22 05:07] LABS: BASOPHILS ABSOLUTE AUTO 0.03 K/mm3 (0.00-0.23); BASOPHILS PERCENT AUTO 0 % (0-2); EOSINOPHILS ABSOLUTE AUTO 0.39 K/mm3 (0.00-0.68); EOSINOPHILS PERCENT AUTO 4 % (0-6); Hematocrit 24.3 % (37.0-53.0); IMMATURE GRAN ABSOLUTE AUTO 0.41 K/mm3 (0.00-0.10); IMMATURE GRAN PERCENT AUTO 4 % (0-1); LYMPHOCYTES ABSOLUTE AUTO 0.95 K/mm3 (0.84-5.20); LYMPHOCYTES PERCENT AUTO 10 % (21-46); MONOCYTES PERCENT AUTO 12 % (4-13); Mean Corpuscular HGB 33.9 pg (26.0-34.0); Mean Corpuscular HGB Conc 32.9 g/dL (31.5-36.5); Mean Corpuscular Volume 103 fL (80-100); Mean Platelet Volume 10.5 fL (9.1-12.4); NEUTROPHILS ABSOLUTE AUTO 6.56 K/mm3 (1.96-9.15); NEUTROPHILS PERCENT AUTO 70 % (41-73); Platelet Count 337 K/mm3 (150-400); RDW Coefficient Variation 14.1 % (11.7-14.2); RDW Standard Deviation 52.7 fL (35.1-46.3); Red Blood Cell Count 2.36 M/mm3 (4.30-5.90); White Blood Cell Count 9.44 K/mm3 (4.00-11.30)
[2022-05-22 05:45] LABS: Bun/Creatinine Ratio 13.3 (12.0-20.0); Calcium, Blood 8.4 mg/dL (8.5-10.1); Creatinine, Blood 1.58 mg/dL (0.60-1.20); Potassium, Blood 3.4 mmol/L (3.5-5.5)
--- NOTE | 2022-05-22 06:26 | NUR ---
SHIFT SUMMARY PT A&OX4, PLEASANT AND COOPERATIVE. NO ACUTE CHANGES, VSS. PT DID NOT NEED PAIN COVERAGE THIS SHIFT. TOLERATING FLUIDS, BUT POOR APPETITE. ILEOSTOMY OUTPUT GREEN/LIQUIDY. EDWARD UT'ED AT 0625. 1-2 ASSIST W/FWW. MIDLINE DRESSING C/D/I. CALLS APPROPRIATELY, CALL LIGHT WITHIN REACH.
--- NOTE | 2022-05-22 17:18 | NUR ---
SHIFT SUMMARY PT POD 8 OPEN COLECTOMY. MIDLINE INCISION W/MEDIPORE DRESSING C/D/I. OSTOMY WITH GREEN LIQUID OUTPUT T/O SHIFT. PT GIVEN EDUCATION T/O SHIFT ON BURPING OSTOMY BAG. PT UP TO CHAIR THIS AFTERNOON. PT HAS RUN TACHY UP TO 160'S AT TIMES T/O SHIFT, AWARE-TOPROL DOSE INCREASED TO 50MG BID. PT HAS HAD POOR PO INTAKE T/O SHIFT, 200ML OF URINE OUT. PT STATES HE IS "JUST NOT HUNGRY". PLAN FOR PT TO GO TO SNF ON DC.
[2022-05-22 20:09] LABS: Bun/Creatinine Ratio 11.9 (12.0-20.0); Calcium, Blood 8.3 mg/dL (8.5-10.1); Creatinine, Blood 1.6 mg/dL (0.60-1.20); Magnesium, Blood 1.1 mg/dL (1.6-2.4); Potassium, Blood 3.3 mmol/L (3.5-5.5)
--- NOTE | 2022-05-23 04:14 | NUR ---
POD 10 FOR A COLECTOMY AND ILLIOSTOMY. VSS. TELE SR @71. HR NOTED TO ELEVATE DURING ANY EXERTION. HR UP TO 200'S DURING SHIFT CHANGE, HR IMMEDIATELY SLOWED AFTER LEON PLACEMENT. OBTAINED PRN ORDER FOR LOPRESSOR FROM THE HOSPITALIST. HTN NOTED WITH AM VITALS, MEDICATED WITH PRN HYDRALAZINE. PT REMAINS ASYMPTOMATIC T/O THIS. MIDLINE INCISION REMAINS C/D/I, DRESSED WITH MEDIPORE DRESSING AND CLEANED WITH WOUND SPRAY. OSTOMY APPLIANCE CHANGED. STOMA APPEARS PINK AND MOIST. PASSING STOOL AND FLATTUS W/O DIFFICULTY. LEON PLACED DURING SHIFT CHANGE, REMAINS PATENT. THE PT SLEPT ON AND OFF T/O THE NIGHT. TOLLERATING MINIMAL PO INTAKE, STATING HE "JUST DOSENT FEEL HUNGRY". PLAN FOR PT TO CONTINUE TO WORK WITH PT AND DISCHARGE TO SNF.
[2022-05-23 04:58] LABS: BASOPHILS ABSOLUTE AUTO 0.04 K/mm3 (0.00-0.23); BASOPHILS PERCENT AUTO 0 % (0-2); EOSINOPHILS ABSOLUTE AUTO 0.34 K/mm3 (0.00-0.68); EOSINOPHILS PERCENT AUTO 4 % (0-6); Hematocrit 24.5 % (37.0-53.0); Hemoglobin 8.2 g/dL (13.5-17.5); IMMATURE GRAN ABSOLUTE AUTO 0.38 K/mm3 (0.00-0.10); IMMATURE GRAN PERCENT AUTO 4 % (0-1); LYMPHOCYTES ABSOLUTE AUTO 0.99 K/mm3 (0.84-5.20); LYMPHOCYTES PERCENT AUTO 10 % (21-46); MONOCYTES ABSOLUTE AUTO 1.08 K/mm3 (0.16-1.47); MONOCYTES PERCENT AUTO 11 % (4-13); Mean Corpuscular HGB 34.2 pg (26.0-34.0); Mean Corpuscular HGB Conc 33.5 g/dL (31.5-36.5); Mean Corpuscular Volume 102 fL (80-100); Mean Platelet Volume 10.4 fL (9.1-12.4); NEUTROPHILS ABSOLUTE AUTO 6.66 K/mm3 (1.96-9.15); NEUTROPHILS PERCENT AUTO 70 % (41-73); Platelet Count 326 K/mm3 (150-400); RDW Coefficient Variation 14.2 % (11.7-14.2); RDW Standard Deviation 53.4 fL (35.1-46.3); White Blood Cell Count 9.49 K/mm3 (4.00-11.30)
[2022-05-23 05:14] LABS: Calcium, Blood 8.3 mg/dL (8.5-10.1); Creatinine, Blood 1.54 mg/dL (0.60-1.20); Potassium, Blood 3.2 mmol/L (3.5-5.5)
[2022-05-23 08:41] LABS: Magnesium, Blood 1.8 mg/dL (1.6-2.4); Phosphorus, Blood 3.3 mg/dL (2.5-4.9)
--- NOTE | 2022-05-23 10:30 | NUR ---
PT UP TO AMBULATE SBA W/FWW AND GAIT BELT. PT WAS WEAK WITH STANDING BUT AMBULATED W/O DIFFICULTY. AMBULATED APROX 50 FT WHEN TELE CALLED THAT PT WAS TACHY IN 150'S SO PT ASSISTED BACK TO ROOM. HR RETURNED TO 84 ONCE BACK IN CHAIR. PT ASYMPTOMATIC W/INCREASED HR. PT C/O FEELING "SO WEAK" ENCOURAGED TO AMBULATE WITH ASSISTANCE HEART TOLERATES.
--- NOTE | 2022-05-23 19:32 | NUR ---
SHIFT SUMMARY PT POD 10 COLECTOMY W/ILEOSTOMY. APROX 900 IN GREEN OUTPUT THROUGH OSTOMY THIS SHIFT. PT INTAKE APORX 800 FOR LIQUID. INCREASED TO APROX 25% FOR MEALS THIS SHIFT. 500ML IVF OVER 5HRS ADMINISTERED. GOOD URINE OUTPUT IN LEON. PT WEAK WITH STANDING BUT AMBULATES WELL WHEN UP WITH WALKER. NO INCREASES IN HR ABOVE 112 SINCE PREVIOUS NOTE. TELE IN PLACE. CONTINUE WORKING WITH THERAPY TO BUILD STRENGTH. OSTOMY EDUCATION STARTED WITH PT SUCH EMPTYING AND BURPING BAG, CONTINUE TO EDUCATE.
--- NOTE | 2022-05-24 04:01 | NUR ---
POD 11 FOR A COLECTOMY AND ILLIOSTOMY PLACEMENT. ILLIOSTOMY PATENT, DRAINING LIQUID STOOL. MIDLINE INCISION REMAINS C/D/I, NO DRAINAGE NOTED. MEDIPORE DRESSING IN PLACE. VSS, TELE SR @72. NO ACUTE EVENTS T/O THE NIGHT. THE PATIENT SLEPT WELL. LEON IN PLACE AND REMAIND PATENT. DRAINGING CLEAR YELLOW URINE. TOLLERATING PO FLUIDS, PT DID NOT EAT FOOD THIS SHIFT. ENCOURAGING AMBULATION WHEN THE PATIENT IS AWAKE. PLAN FOR PT TO D/C TO [facility] THIS WEEK, PENDING INSURANCE APPROVAL. THE PATIENT IS CURRENTLY SLEEPING, IN NO DISTRESS, CALL LIGHT IN REACH.
[2022-05-24 05:19] LABS: BASOPHILS ABSOLUTE AUTO 0.05 K/mm3 (0.00-0.23); BASOPHILS PERCENT AUTO 1 % (0-2); EOSINOPHILS ABSOLUTE AUTO 0.35 K/mm3 (0.00-0.68); EOSINOPHILS PERCENT AUTO 3 % (0-6); Hematocrit 25.9 % (37.0-53.0); Hemoglobin 8.7 g/dL (13.5-17.5); IMMATURE GRAN ABSOLUTE AUTO 0.34 K/mm3 (0.00-0.10); IMMATURE GRAN PERCENT AUTO 3 % (0-1); LYMPHOCYTES ABSOLUTE AUTO 1.15 K/mm3 (0.84-5.20); LYMPHOCYTES PERCENT AUTO 11 % (21-46); MONOCYTES ABSOLUTE AUTO 1.16 K/mm3 (0.16-1.47); MONOCYTES PERCENT AUTO 11 % (4-13); Mean Corpuscular HGB 34.4 pg (26.0-34.0); Mean Corpuscular HGB Conc 33.6 g/dL (31.5-36.5); Mean Corpuscular Volume 102 fL (80-100); Mean Platelet Volume 10.3 fL (9.1-12.4); NEUTROPHILS PERCENT AUTO 71 % (41-73); Platelet Count 373 K/mm3 (150-400); RDW Coefficient Variation 14.1 % (11.7-14.2); RDW Standard Deviation 53.4 fL (35.1-46.3); Red Blood Cell Count 2.53 M/mm3 (4.30-5.90); White Blood Cell Count 10.35 K/mm3 (4.00-11.30)
[2022-05-24 05:43] LABS: Albumin, Blood 1.9 g/dL (3.4-5.0); Anion Gap 9 mmol/L (6-16); Blood Urea Nitrogen 16 mg/dL (8-24); Bun/Creatinine Ratio 10.9 (12.0-20.0); CO2, Blood 21 mmol/L (21-32); Calcium, Blood 8.5 mg/dL (8.5-10.1); Chloride, Blood 112 mmol/L (98-108); Creatinine, Blood 1.47 mg/dL (0.60-1.20); Glomerular Filtration Rate 47 (60-); Glucose, Blood 100 mg/dL (70-99); Magnesium, Blood 2.2 mg/dL (1.6-2.4); Phosphorus, Blood 2.8 mg/dL (2.5-4.9); Potassium, Blood 3.7 mmol/L (3.5-5.5); Sodium, Blood 142 mmol/L (136-145)
--- NOTE | 2022-05-24 08:43 | NUR ---
HR PT'S HR WAS TRENDING IN 160S, CALLED DR CAMPOS AND OBTAINED ORDER FOR IV LOPRESSOR. UPON ENTERING ROOM TO OBTAIN ANOTHER SET OF VS PRIOR TO IV LOPRESSOR ADMINISTRATION, PT'S HR HAD DROPPED TO LOW 100S AND BP WAS 142/41. CALLED DR CAMPOS AND AWAITING FURTHER ORDERS. PT IN NO APPARENT DISTRESS AT THIS TIME, RESTING IN CHAIR W/EYES CLOSED. CALL LIGHT IN REACH.
--- NOTE | 2022-05-24 15:35 | NUR ---
YANELI W/PT PT WORKING W/PT AND TELE CALLED TO STATE PT HR UP TO 160S. PT RECLINED BACK IN RECLINER AND NOW HR IN 90S. CALL LIGHT IN REACH. DENIES ANY NEEDS.
--- NOTE | 2022-05-24 17:07 | NUR ---
summary PT HAS BEEN IN AFIB T/O SHIFT. HAD EPISODE OF AFIB W/RVR THIS AM WHILE EATING BREAKFAST AND AGAIN THIS AFTERNOON WHEN WORKED W/THERAPY. THIS AM, PT MEDICATED PER ORDERS AFTER REPORTED TO DR CAMPOS. THIS AFTERNOON, EPISODE RESOLVED WHEN PT SAT DOWN AND RECLINED IN RECLINER. PT ASYMPTOMATIC WHEN OCCURS. DRESSING TO MIDLINE ABD CDI. ILEOSTOMY PUTTING OUT GREEN SOFT STOOL. PT TOLERATING PO. LEON CATH PRODUCING CLEAR YELLOW URINE. PT HAS BEEN UP IN RECLINER T/O SHIFT. CALL LIGHT IN REACH.
--- NOTE | 2022-05-24 18:59 | NUR ---
REPORT GIVEN TO ONCOMING SHIFT. PT RESTING IN RECLINER. CALL LIGHT IN REACH. DENIES ANY NEEDS.
--- NOTE | 2022-05-25 04:43 | NUR ---
SHIFT SUMMARY PATIENT IS AOX4, POD 11 ILLEOSTOMY PLACEMENT. STOMA IS PINK/REDISH IN COLOR MOIST. MINIMAL OUTPUT OF GREENISH LIQUID/SOFT STOOL. FLATUS IN BAG. MEDIPORE DRESSING IN PLACE TO MIDLINE C/D/I. BP AND HEART RATE STABLE THIS SHIFT. TELE REPORTS NSR 68 THIS AM. DENIES SOB, CP/PRESSURE. PATIENT IS TOLERATING PO INTAKE, LEON IS PATENT DRAINING TO GRAVITY, CLEAR YELLOW URINE. STAT LOCK IN PLACE. PATIENT IS A 1-2 ASSIST WITH FWW, GB TO GET BACK TO BED. REPOSITIONS T/O NIGHT. USES CALL LIGHT APPROPRIATELY, ABLE TO LET NEEDS KNOW.
[2022-05-25 06:52] LABS: BASOPHILS ABSOLUTE AUTO 0.03 K/mm3 (0.00-0.23); BASOPHILS PERCENT AUTO 0 % (0-2); EOSINOPHILS ABSOLUTE AUTO 0.34 K/mm3 (0.00-0.68); EOSINOPHILS PERCENT AUTO 4 % (0-6); Hematocrit 24.5 % (37.0-53.0); IMMATURE GRAN ABSOLUTE AUTO 0.25 K/mm3 (0.00-0.10); IMMATURE GRAN PERCENT AUTO 3 % (0-1); LYMPHOCYTES ABSOLUTE AUTO 0.79 K/mm3 (0.84-5.20); LYMPHOCYTES PERCENT AUTO 10 % (21-46); MONOCYTES PERCENT AUTO 12 % (4-13); Mean Corpuscular HGB 33.5 pg (26.0-34.0); Mean Corpuscular HGB Conc 32.7 g/dL (31.5-36.5); Mean Corpuscular Volume 103 fL (80-100); Mean Platelet Volume 10.7 fL (9.1-12.4); NEUTROPHILS ABSOLUTE AUTO 5.86 K/mm3 (1.96-9.15); NEUTROPHILS PERCENT AUTO 71 % (41-73); Platelet Count 358 K/mm3 (150-400); RDW Coefficient Variation 13.9 % (11.7-14.2); RDW Standard Deviation 52.7 fL (35.1-46.3); Red Blood Cell Count 2.39 M/mm3 (4.30-5.90); White Blood Cell Count 8.27 K/mm3 (4.00-11.30)
[2022-05-25 07:11] LABS: Bun/Creatinine Ratio 9.3 (12.0-20.0); Calcium, Blood 8.2 mg/dL (8.5-10.1); Creatinine, Blood 1.5 mg/dL (0.60-1.20); Potassium, Blood 3.4 mmol/L (3.5-5.5)
--- NOTE | 2022-05-25 08:56 | NUR ---
HR/BP TELE CALLED AND STATED PT IN AFIB W/RVR UP TO 170S. GLASS VIAL FILLER REPORTED PT FELT DIZZY WHEN SAT UP ON EDGE OF BED. WHEN THIS RN ENTERED ROOM, PT STATED DIZZINESS HAD RESOLVED; ASSISTED PT TO LYING POSITION. TELE REPORTED HR BACK DOWN TO 90S. BP 168/118. 02 100% ON RA. ADMINISTERED AM MEDS. PT NOW RESTING IN BED, CALL LIGHT IN REACH. DENIES ANY NEEDS.
--- NOTE | 2022-05-25 10:45 | NUR ---
SANCHO/TELE NOTIFIED PT IN SR @ 70.
--- NOTE | 2022-05-25 11:52 | NUR ---
Spiritual Caere Visit. Pt. is awake in bed and welcomes my visit. Pt. is pleasant but verbalizes that he has a difficult time seeing this metal flooring installer. I moved out of the chairand listened empathetically. Pt. is unsettled by his limited ability to move (one of his legs). Re-establish rapport and discuss matters of antoine and belief. Pt. verbalized that he prayed with his son earlier in the day. Faciltiate a life review. Pt. displays evidence of being engaged and encouraged. Prayed with Pt. and Pt. verbalized gratitude for the spiritual care visit.
--- NOTE | 2022-05-25 15:01 | NUR ---
dr yanes in to see pt.
--- NOTE | 2022-05-25 17:17 | NUR ---
SUMMARY PT HAD EPISODE OF AFIB W/RVR THIS AM WHEN SAT UP TO EAT BREAKFAST. PT WAS DIZZY AND HYPERTENSIVE. ADMINISTERED MEDS PER ORDERS. LATE MORNING, WAS NOTIFIED BY COMPOSING ROOM MACHINIST THAT PT HAD CONVERTED TO SR IN 70S. DISCUSSED MEDS W/DR CAMPOS, NEW ORDERS OBTAINED FOR METOPROLOL. PT WORKED W/THERAPY AND RESTED OFF AND ON T/O SHIFT. ILEOSTOMY PUT OUT >1000 ML OF LIQUID STOOL THIS SHIFT. PLAN TO DC TO SNF TOMORROW. CALL LIGHT IN REACH.
--- NOTE | 2022-05-26 04:54 | NUR ---
SHIFT SUMMARY NO ACUTE EVENTS THIS SHIFT, PATIENT REMAINED IN NSR 60'S. GOOD OUTPUT IN ILLEOSTOMY WITH GREEN DARK LIQUID STOOL. LEON PATENT AND DRAINING YELLOW CLEAR URINE. PATIENT DENIES N/V, DENIES PAIN. VSS, CALL LIGHT IN REACH.
[2022-05-26 06:00] LABS: Hematocrit 24.4 % (37.0-53.0)
[2022-05-26 06:34] LABS: Albumin, Blood 1.9 g/dL (3.4-5.0); Anion Gap 9 mmol/L (6-16); Blood Urea Nitrogen 13 mg/dL (8-24); Bun/Creatinine Ratio 7.7 (12.0-20.0); CO2, Blood 21 mmol/L (21-32); Calcium, Blood 8.7 mg/dL (8.5-10.1); Chloride, Blood 111 mmol/L (98-108); Creatinine, Blood 1.69 mg/dL (0.60-1.20); Glomerular Filtration Rate 40 (60-); Glucose, Blood 89 mg/dL (70-99); Phosphorus, Blood 3.5 mg/dL (2.5-4.9); Potassium, Blood 3.6 mmol/L (3.5-5.5); Sodium, Blood 141 mmol/L (136-145)
[2022-05-26 09:54] LABS: SARS-Cov-2 (COVID-19) PCR, MMC NEGATIVE (NEGATIVE)
--- NOTE | 2022-05-26 11:15 | NUR ---
DISCHARGE POD 12, ILEOSTOMY TO RUQ W/ GOOD OUTPUT, PATIENT TOLERATING WELL. MIDLINE INCISION W SCARLETT DIRECTOR OF LITIGATION APPEAR WNL. PATEINT TOLERATING REGULAR DIET WELL, DENIES N/V, DENIES PAIN. AMBULATING WELL WITHIN ROOM W/ FWW AND 1 ASSIST. NO TELE EVENTS OVERNIGHT. PATIENT DENIES CP/PRESSURE/PALPATIONS/SOB. REPORT CALLED TO SNADRA AT [facility]. APPOINTMENT ARRANGED WITH DR [facility] PER [facility]GE ORDER REQUEST.
== END 2022-05-26 11:07 | DRG 853 ==
LOC: ER 12:25 → ICUW 16:32 → ICUE 16:32 → SURS 16:32 → PCU 16:32 → ICUE 05-15 13:18 → SURS 05-20 16:08
PROVIDERS: Emergency Medicine; Family Medicine; Internal Medicine; Internal Medicine Critical Care Medicine; Pharmacist; Specialist; Surgery; ADMIT Internal Medicine
PROC: 3E03329 Introduction of Other Anti-infective into Peripheral Vein, Percutaneous Approach (ICD-10-PCS; 2022-05-11)
PROC: 0DBP8ZX Excision of Rectum, Via Natural or Artificial Opening Endoscopic, Diagnostic (ICD-10-PCS; 2022-05-12)
PROC: 0DTJ0ZZ Resection of Appendix, Open Approach (ICD-10-PCS; 2022-05-13)
PROC: 0DTG0ZZ Resection of Left Large Intestine, Open Approach (ICD-10-PCS; 2022-05-13)
PROC: 0DTF0ZZ Resection of Right Large Intestine, Open Approach (ICD-10-PCS; principal; 2022-05-13 09:30)
PROC: 0D1B0Z4 Bypass Ileum to Cutaneous, Open Approach (ICD-10-PCS; 2022-05-13 09:30)
DX: A41.9 Sepsis, unspecified organism (principal); J18.9 Pneumonia, unspecified organism; J96.01 Acute respiratory failure with hypoxia; K63.1 Perforation of intestine (nontraumatic); K56.600 Partial intestinal obstruction, unspecified as to cause; N17.9 Acute kidney failure, unspecified; K55.9 Vascular disorder of intestine, unspecified; E87.0 Hyperosmolality and hypernatremia; C18.7 Malignant neoplasm of sigmoid colon; Z78.1 Physical restraint status; C20 Malignant neoplasm of rectum; I48.0 Paroxysmal atrial fibrillation; Z20.822 Contact with and (suspected) exposure to COVID-19; R65.20 Severe sepsis without septic shock; H35.30 Unspecified macular degeneration; E87.6 Hypokalemia; I10 Essential (primary) hypertension; N40.0 Benign prostatic hyperplasia without lower urinary tract symptoms; K21.9 Gastro-esophageal reflux disease without esophagitis; E78.5 Hyperlipidemia, unspecified; H40.9 Unspecified glaucoma; M10.9 Gout, unspecified; Z85.46 Personal history of malignant neoplasm of prostate; Z92.3 Personal history of irradiation; Z98.52 Vasectomy status; Z90.79 Acquired absence of other genital organ(s); Z98.890 Other specified postprocedural states; Z79.899 Other long term (current) drug therapy
CPT/HCPCS: 36415; 36600; 71045; 74177; 78580; 80048; 80053; 80069; 80202; 81001; 82378; 82803; 83605; 83735; 83880; 84100; 84443; 84550; 85014; 85018; 85025; 85520; 85610; 87040; 87070; 87086; 87106; 87205; 88305; 88307; 88309; 88342; 92526; 92610; 93005; 93010; 94640; 94660; 94664; 94667; 94668; 94760; 94762; 96361; 96365-59; 97110; 97116; 97162; 97167; 97530; 97535; 99285-25; A9270; A9540; C1751; C9113; J0282; J0360; J1170; J1644; J1940; J2370; J2543; J2704; J3010; J3370; J3475; J3480; J7030; J7040; J7050; J7060; J7120; Q9967; U0004

== ENCOUNTER 2022-06-07 13:09 | Inpatient (IN) | payer OTHER ==
[~2022-06-07] VITALS: Ht 170.2 cm; Wt 74.1 kg
[~2022-06-07 13:09] MED LIST: 1/2 NS 250ml250 ML; ADALAT CC30 M1 PO; BISOPROLOL-HCT1 EAC2 PO; FINA5 PO; FURO20 PO; LATANOPROST2.5 M3 BOTHEYES; LISI5; PANT40; Simvastatin20 MG PO; TAMS.4ER PO; TIMO10T
[2022-06-07 13:41] LABS: BASOPHILS ABSOLUTE AUTO 0.05 K/mm3 (0.00-0.23); BASOPHILS PERCENT AUTO 1 % (0-2); EOSINOPHILS ABSOLUTE AUTO 0.25 K/mm3 (0.00-0.68); EOSINOPHILS PERCENT AUTO 3 % (0-6); Hematocrit 27.3 % (37.0-53.0); Hemoglobin 9.3 g/dL (13.5-17.5); IMMATURE GRAN ABSOLUTE AUTO 0.14 K/mm3 (0.00-0.10); IMMATURE GRAN PERCENT AUTO 2 % (0-1); LYMPHOCYTES ABSOLUTE AUTO 1.53 K/mm3 (0.84-5.20); LYMPHOCYTES PERCENT AUTO 18 % (21-46); MONOCYTES ABSOLUTE AUTO 0.77 K/mm3 (0.16-1.47); MONOCYTES PERCENT AUTO 9 % (4-13); Mean Corpuscular HGB 33.7 pg (26.0-34.0); Mean Corpuscular HGB Conc 34.1 g/dL (31.5-36.5); Mean Corpuscular Volume 99 fL (80-100); Mean Platelet Volume 10.6 fL (9.1-12.4); NEUTROPHILS ABSOLUTE AUTO 5.65 K/mm3 (1.96-9.15); NEUTROPHILS PERCENT AUTO 67 % (41-73); Platelet Count 229 K/mm3 (150-400); RDW Coefficient Variation 14.1 % (11.7-14.2); RDW Standard Deviation 51.2 fL (35.1-46.3); Red Blood Cell Count 2.76 M/mm3 (4.30-5.90); White Blood Cell Count 8.39 K/mm3 (4.00-11.30)
[2022-06-07 13:58] LABS: Albumin, Blood 2.8 g/dL (3.4-5.0); Albumin/Globulin Ratio 0.6 (0.8-1.8); Bilirubin, Total 0.1 mg/dL (0.1-1.0); Bun/Creatinine Ratio 15.2 (12.0-20.0); Calcium, Blood 9.4 mg/dL (8.5-10.1); Creatinine, Blood 3.68 mg/dL (0.60-1.20); Potassium, Blood 6.1 mmol/L (3.5-5.5); Total Protein, Blood 7.8 g/dL (6.4-8.2)
[2022-06-07] MEDS ORDERED: LACT10SY PO (16:28)
[2022-06-07] MEDS ORDERED: FLUC200 PO (16:31)
[2022-06-07] MEDS ORDERED: METO100 PO (16:32)
[2022-06-07] MEDS ORDERED: IPRAT-ALBUT 0.5-3 ML INH (16:34)
[2022-06-07] MEDS ORDERED: FOLI1 PO (16:34)
[2022-06-07] MEDS ORDERED: HYDR10 PO (16:35)
[2022-06-07] MEDS ORDERED: ONDA4 PO (16:37)
[2022-06-07] MEDS ORDERED: Acetaminophen650 M1 PO (16:43)
[2022-06-07] MEDS ORDERED: XARELTO20 MG PO (16:52)
--- NOTE | 2022-06-07 18:44 | NUR ---
END OF SHIFT: NO CHANGES FROM ADMISSION ASSESSMENT PLEASE SEE. NO ACUTE SIGN OF DISTRESS EITHER CARDIAC OR RESPIRATORY, WILL COTNIUE TO MONITOR UNTIL SHIFT CHANGE, IV RUNNING AT 75 AT TIMES WHEN PATIENT KEEPS ARM DOWN, PATIENT ON CAMERA WILL COTINUE TO MONITOR UNTIL SHIFT CHANGE.
[2022-06-07 19:09] LABS: Bun/Creatinine Ratio 16.8 (12.0-20.0); Calcium, Blood 9.2 mg/dL (8.5-10.1); Creatinine, Blood 3.51 mg/dL (0.60-1.20); Potassium, Blood 6.3 mmol/L (3.5-5.5)
[2022-06-08 05:08] LABS: Hematocrit 25.3 % (37.0-53.0); Hemoglobin 8.2 g/dL (13.5-17.5); Mean Corpuscular HGB 32.8 pg (26.0-34.0); Mean Corpuscular HGB Conc 32.4 g/dL (31.5-36.5); Mean Corpuscular Volume 101 fL (80-100); Mean Platelet Volume 11.1 fL (9.1-12.4); Platelet Count 212 K/mm3 (150-400); RDW Coefficient Variation 14.3 % (11.7-14.2); RDW Standard Deviation 52.2 fL (35.1-46.3); White Blood Cell Count 7.39 K/mm3 (4.00-11.30)
--- NOTE | 2022-06-08 05:58 | NUR ---
Assumed care of pt at 1900. A/O to self only with auditory and visual hallucinations. Weakness noted t/o. Maintains over 94% on RA. LS clear on top and dim at bases. Occasional nonproductive cough and shallow breathing pattern. SB on tele 40-60. Denies CP/pressure. BP MAP 60's-70's. Moderate abdominal distention with hyperactive bowel tones. New ostomy in RUQ and midline healing incision. Ostomy output liquid brown. Stoma pink round and surrounding skin intact. Appliance changed this shift d/t patient pulling it off. Patient only able to void 100ml at a time, bladder scan showed more than 750ml, order obtained to straight cath. Patient tolerated well. Patient has scattered scabs t/o BUE and BLE that itch to the point of patient opening skin. Benedryl cream applied per emar. Patients mentation has not changed the whole night, however he was able to get some sleep. Critical potassium at beginning of shift treated per emar and has returned to WNL. Will report to samuel BREAUX.
[2022-06-08 05:59] LABS: Bun/Creatinine Ratio 18.3 (12.0-20.0); Calcium, Blood 9.8 mg/dL (8.5-10.1); Creatinine, Blood 3.17 mg/dL (0.60-1.20); Potassium, Blood 5.3 mmol/L (3.5-5.5)
--- NOTE | 2022-06-08 13:33 | NUR ---
CARE NOTE ILLEOSTOMY DEVICE CHANGED BY THIS RN AT APPROX. 1245. COMPLETE BEDBATH AND LINNEN CHANGE PROVIDED BY THIS RN AND LIANNE SAUCEDA. PT NOW APPEARS TO BE SLEEPING COMFORTABLY.
[2022-06-08 13:51] LABS: Source, Urine Foley catheter
[2022-06-08 13:55] LABS: Appearance, Urine Hazy (Clear); Bilirubin, Urine Neg (Neg); Blood, Urine 1+ (Neg); Color, Urine Yellow (P-Yellow); Glucose Qualitative, Urine Neg (Neg); Ketones, Urine Neg (Neg); Leukocyte Esterase, Urine 2+ (Neg); Nitrite, Urine Neg (Neg); Protein, Urine 1+ (Neg); Urobilinogen, Urine NORM (Normal)
[2022-06-08 14:20] LABS: Uric Acid Crystals Many /hpf
[2022-06-08 14:22] LABS: Amorphous Light (0-Heavy); Bacteria Rare /hpf; Granular Casts 0-2 /lpf (0); Renal Epithelial Few /hpf (0-Rare); Squamous Epithelial Cells Rare /hpf (Few); Transitional Epithelial Cells Rare /hpf (0-Rare)
--- NOTE | 2022-06-08 14:33 | NUR ---
Spiritual Care Notes Pt. is somnilent and only occassionally repsponsive. Pts. cousin is present. When Pt. is responsive, Pt. demonstrates evidence of being confused and does not recognize his cousin. Establish rapport with Cousin. Prayed for Pt. with cousin. Cousin verbalized that it was the first time that the Pt. didn't recognize him. Cousing verbalized gratitude for the spiritual care visit.
[2022-06-08 16:25] LABS: Bun/Creatinine Ratio 18.1 (12.0-20.0); Calcium, Blood 9.3 mg/dL (8.5-10.1); Creatinine, Blood 2.65 mg/dL (0.60-1.20)
--- NOTE | 2022-06-08 17:54 | NUR ---
SHIFT SUMMARY PT IS ALERT TO SELF, FAMILY, YEAR AND PRESIDENT BUT IS CONFUSED REGARDING PLACE AND SITUATION. HE HAS EPISODES WHERE CONFUSION IS INCREASED. BED ALARM HAS BEEN ON DURING SHIFT. HR HAS RANGED FROM 57-60'S PER TELE REPORT, BP HAS BEEN STABLE W/ MAP IN 60'S, SPO2 MAINTAINED >95% VIA ROOM AIR. PT HAS DENIED FEELINGS OF CHEST PAIN/PRESSURE, HE HAS DENIED FEELING SOB, HE HAS DENIED PAIN IN GENERAL. PT HAS BEEN RETAINING URINE SO LEON CATHETER PLACED AND IS DRAINING TO GRAVITY LIGHT YELLOW OUTPUT. ILLEOSTOMY DEVICE CHANGED OUT TODAY DURING SHIFT AND SKIN CARE PROVIDED AROUND STOMA, STOMA APPEARS PINK. IV IN RIGHT FOREARM IS INFUSING NS PER EMAR ORDERS. LOTION HAS BEEN APPLIED FREQUENTLY TO BILAT ARMS, LEGS AND SCALP TO REDUCE ITCHING, SEE CHART FOR PHOTOS. DAUGHTER JASMIN WAS AT BEDSIDE THIS AM AND PT SON WAS AT BEDSIDE THIS AFTERNOON. NO OTHER ACUTE CHANGES NOTED. PT IS NOW WATCHING TV. CALL LIGHT IS W/IN REACH. WILL CONTINUE TO MONITOR UNTIL REPORT GIVEN. BED ALARM ON.
[2022-06-09 04:48] LABS: Albumin, Blood 2.3 g/dL (3.4-5.0); Albumin/Globulin Ratio 0.6 (0.8-1.8); Bilirubin, Total 0.1 mg/dL (0.1-1.0); Bun/Creatinine Ratio 19.6 (12.0-20.0); Calcium, Blood 8.5 mg/dL (8.5-10.1); Creatinine, Blood 1.99 mg/dL (0.60-1.20); Globulin, Blood 3.9 g/dL (2.2-4.0); Potassium, Blood 3.8 mmol/L (3.5-5.5); Total Protein, Blood 6.2 g/dL (6.4-8.2)
--- NOTE | 2022-06-09 06:33 | NUR ---
Patient remains A/O to self only. Became more agitated, confused and not redirectable and thus order obtained for linda for patient safety. Patient continues to be on camera and attempts to pull out crowder and pulled out 1 IV this shift. Zyprexa given per emar with negative effect, more confused and less redirectable. Patients MAPs continue to be in 60's all night, nighttime heart meds not given d/t lower BP & MAP. Will update dayshift RN.
[2022-06-09 16:36] LABS: Calcium, Blood 8.5 mg/dL (8.5-10.1); Creatinine, Blood 1.76 mg/dL (0.60-1.20)
--- NOTE | 2022-06-09 17:29 | NUR ---
SHIFT SUMMARY PT IS ALERT TO SELF AND FAMILY. HE IS CONFUSED AND HAS BEEN HALLUCINATING T/O SHIFT. HALLUCINATIONS PERTAIN TO PEOPLE BEING IN ROOM THAT ARE NOT THERE. MARIA TERESA VEST IN PLACE DUE TO PT NOT BEING REDIRECTABLE IN ATTEMPTING TO GET OUT OF BED/CHAIR. PER TELE REPORT, HR HAS BEEN SR 60'S. BP STABLE AND HE REMAINS ON ROOM AIR W/ SPO2 >95%. HE HAS SAT IN RECLINER CHAIR FOR MAJORITY OF SHIFT W/ CHAIR ALARM ON. LEON CATHETER IS IN PLACE DRAINING TO GRAVITY HAZEY YELLOW OUTPUT. IV IN LEFT FOREARM IS SALINE LOCKED. BOTH DAUGHTER TONIA AND SON TRELL WERE AT BEDSIDE DURING SHIFT. ILLEOSTOMY IS DRAINING LIQUID BROWN OUTPUT. CALL LIGTH IS IN REACH, PT IS CURRENTLY EATING DINNER. WILL CONTINUE TO MONITOR UNTIL REPORT GIVEN.
[2022-06-10 04:39] LABS: BASOPHILS ABSOLUTE AUTO 0.04 K/mm3 (0.00-0.23); BASOPHILS PERCENT AUTO 1 % (0-2); EOSINOPHILS PERCENT AUTO 8 % (0-6); Hematocrit 21.9 % (37.0-53.0); Hemoglobin 7.4 g/dL (13.5-17.5); IMMATURE GRAN ABSOLUTE AUTO 0.08 K/mm3 (0.00-0.10); IMMATURE GRAN PERCENT AUTO 1 % (0-1); LYMPHOCYTES ABSOLUTE AUTO 1.12 K/mm3 (0.84-5.20); LYMPHOCYTES PERCENT AUTO 18 % (21-46); MONOCYTES ABSOLUTE AUTO 0.79 K/mm3 (0.16-1.47); MONOCYTES PERCENT AUTO 13 % (4-13); Mean Corpuscular HGB 33.9 pg (26.0-34.0); Mean Corpuscular HGB Conc 33.8 g/dL (31.5-36.5); Mean Corpuscular Volume 101 fL (80-100); Mean Platelet Volume 10.5 fL (9.1-12.4); NEUTROPHILS ABSOLUTE AUTO 3.67 K/mm3 (1.96-9.15); NEUTROPHILS PERCENT AUTO 59 % (41-73); Platelet Count 169 K/mm3 (150-400); RDW Coefficient Variation 14.6 % (11.7-14.2); RDW Standard Deviation 53.3 fL (35.1-46.3); Red Blood Cell Count 2.18 M/mm3 (4.30-5.90)
[2022-06-10 04:57] LABS: Bun/Creatinine Ratio 17.9 (12.0-20.0); Calcium, Blood 8.8 mg/dL (8.5-10.1); Creatinine, Blood 1.34 mg/dL (0.60-1.20); Potassium, Blood 3.5 mmol/L (3.5-5.5)
--- NOTE | 2022-06-10 06:56 | NUR ---
DIRECTOR WEIGHTS AND MEASURES SUMMARY PT CONFUSED AND ORIENTED TO SELF ONLY. MARIA TERESA CONTINUED BUT BILATERAL WRIST RESTRAINTS NEEDED TO PREVENT PULLING ON LINES AND TUBES. PT NOT REDIRECTABLE AND ATTEMPTING TO CLIMB OUT OF BED MULTIPLE TIMES THROUGHOUT THE SHIFT SO WAS PUT IN FOUR BED RAILS. PT HAS AUDITORY AND VISUAL HALLUCINATIONS, HAVING CONVERSATIONS BY HIMSELF IN THE ROOM. HE CONTINUES TO BELIEVE THAT HE IS AT HOME AND THAT THERE ARE FIRE TRUCKS IN THE ROOM. HE IS UNABLE TO BE REORIENTED THROUGHOUT THE SHIFT. PT GIVEN 1 MG OF IV HALDOL WITH NO IMPROVEMENT. HE HAD A SHORT PERIOD OF REST BUT OTHERWISE HAS BEEN AWAKE THROUGHOUT THE SHIFT. PT AGITATED AT TIME OF HS MED PASS AND REFUSING ORAL MEDICATIONS. LEON IN PLACE AND PATENT. NO BMS THIS SHIFT. TELE HAS BEEN SINUS IN THE 70S WHEN PT IS LYING STILL.
--- NOTE | 2022-06-10 08:20 | NUR ---
TO CT VIA [facility]
--- NOTE | 2022-06-10 09:08 | NUR ---
[address] PT REMEINS RESTLESS, PULLING AT LINES AND RESTRAINTS. TALKING OUTLOUD
--- NOTE | 2022-06-10 11:27 | NUR ---
Pt. is awake. Pts. daughter is present and welcomes my visit. Pt. is awake and smiling, but displays evidence of being disengaged and confused. Daughter verbalizes that the Pt. has not slept for two nights. Listen empathetically with a calming presence. Establish rapport with daughter and prayed for the pt. Daughter verbalized gratitude for the spiritual care visit.
--- NOTE | 2022-06-10 11:59 | NUR ---
1145 transferred to room 352 via bed. report given to francisco daily RN. pts daughter accompanied patient to new room. pt cooperative, confused. is not oriented to self, person, place, time or self. soft wrist restraints and linda in place. pt with frequent attempts to putting legs over bed and asking for keys to truck. pt attempts to pull on crowder and ostomy.
[2022-06-10 13:23] LABS: Hematocrit 23.6 % (37.0-53.0)
--- NOTE | 2022-06-10 17:34 | NUR ---
SHIFT SUMMARY; PATIENT ARRIVED TO MED FLOOR SHORTLY BEFORE LUNCH. SONU RN ACCOMPANIES PATIENT TO MED 352. PATIENT REMAINS IN SOFT WRIST RESTRAINTS. MARIA TERESA VEST AND 4 SIDE RAILS. HE PULLS AT RESTRAINTS REPEATEDLY AND IS NOTED TO PULL ON LEON IF HE SCOOTS DOWN IN BED. HE IS REPOSITIONED OFTEN AND RESTRAINTS ARE CHECKED FOR CMS. HE IS A FULL LIQUID DIET AND EATS MINIMALLY. HE IS A FEEDER. HE IS NOT PROVIDED WITH HIS 1400 MEDS HE IS TO CONFUSED AND IS NOT ABLE TO SWALLOW SAFELY AND IS AN ASPIRATION RISK. HIS DAUGHTER ACCOMPANIED HIM TO THE ROOM AND HAS QUESTIONS FOR NURSING ABOUT HER FATHERS CONDITION. ALL QUESTIONS ADDRESSED AND ANSWERED TO HER SATISFACTION. RESTRAINT ORDER NEEDS TO BE RENEWED AT 0045 TONIGHT. VITAL SIGNS ARE WITHIN NORMAL LIMITS. WILL CONTINUE TO MONITOR THIS PATIENT CLOSELY UNTIL REPORT AND HAND OFF TO NOC SHIFT RN
--- NOTE | 2022-06-11 04:21 | NUR ---
SHIFT SUMMARY: PATIENT IS ALERT AND ORIENTED TO SELF. COOPERATIVE WITH STAFF BUT WHEN HANDS ARE OUT OF RESTRAINTS FOR SKIN CHECK PATIENT IS ATTEMPTING TO PULL ON LEON AND ABD. BINDER. TYLENOL WAS GIVEN X1 FOR A FLACC SCALE OF 5, WITH GOOD EFFECT. RESTRAINT ORDER WAS RENEWED AT 0038. LEON IS PATENT FOR CLEAR YELLOW URINE AND COLOSTOMY PUT OUT 200MLS OF LIQUID STOOL.
[2022-06-11 05:22] LABS: BASOPHILS ABSOLUTE AUTO 0.04 K/mm3 (0.00-0.23); BASOPHILS PERCENT AUTO 1 % (0-2); EOSINOPHILS ABSOLUTE AUTO 0.57 K/mm3 (0.00-0.68); EOSINOPHILS PERCENT AUTO 14 % (0-6); Hematocrit 25.6 % (37.0-53.0); Hemoglobin 8.5 g/dL (13.5-17.5); IMMATURE GRAN ABSOLUTE AUTO 0.03 K/mm3 (0.00-0.10); IMMATURE GRAN PERCENT AUTO 1 % (0-1); LYMPHOCYTES ABSOLUTE AUTO 1.15 K/mm3 (0.84-5.20); LYMPHOCYTES PERCENT AUTO 27 % (21-46); MONOCYTES ABSOLUTE AUTO 0.51 K/mm3 (0.16-1.47); MONOCYTES PERCENT AUTO 12 % (4-13); Mean Corpuscular HGB 33.3 pg (26.0-34.0); Mean Corpuscular HGB Conc 33.2 g/dL (31.5-36.5); Mean Corpuscular Volume 100 fL (80-100); Mean Platelet Volume 10.6 fL (9.1-12.4); NEUTROPHILS ABSOLUTE AUTO 1.93 K/mm3 (1.96-9.15); NEUTROPHILS PERCENT AUTO 46 % (41-73); Platelet Count 165 K/mm3 (150-400); RDW Coefficient Variation 14.7 % (11.7-14.2); RDW Standard Deviation 53.8 fL (35.1-46.3); Red Blood Cell Count 2.55 M/mm3 (4.30-5.90); White Blood Cell Count 4.23 K/mm3 (4.00-11.30)
[2022-06-11 05:46] LABS: Bun/Creatinine Ratio 12.1 (12.0-20.0); Calcium, Blood 9.6 mg/dL (8.5-10.1); Creatinine, Blood 1.49 mg/dL (0.60-1.20); Potassium, Blood 3.7 mmol/L (3.5-5.5)
--- NOTE | 2022-06-11 18:51 | NUR ---
SHIFT SUMMARY; PATIENT REMAINS IN SOFT RESTRAINTS TODAY. HE MANAGED TO PULL HIS OSTOMY BAG OFF AND NEEDED A COMPLETE BED CHANGE. DAUGHTER CAME TO SEE PATIENT AND WANTED TO PASS ON THAT PATIENT WOULD BE GOING HOME WITH HER EVENTUALLY AND SHE IS PLANNING ON TAKING CARE OF HIM. SON TRELL WANTS TO SPEAK WITH MD AND I PASSED THIS ON TO AND .
[2022-06-12 05:52] LABS: BASOPHILS ABSOLUTE AUTO 0.02 K/mm3 (0.00-0.23); BASOPHILS PERCENT AUTO 1 % (0-2); EOSINOPHILS ABSOLUTE AUTO 0.51 K/mm3 (0.00-0.68); EOSINOPHILS PERCENT AUTO 12 % (0-6); Hematocrit 25.4 % (37.0-53.0); Hemoglobin 8.5 g/dL (13.5-17.5); IMMATURE GRAN ABSOLUTE AUTO 0.03 K/mm3 (0.00-0.10); IMMATURE GRAN PERCENT AUTO 1 % (0-1); LYMPHOCYTES ABSOLUTE AUTO 1.13 K/mm3 (0.84-5.20); LYMPHOCYTES PERCENT AUTO 26 % (21-46); MONOCYTES ABSOLUTE AUTO 0.41 K/mm3 (0.16-1.47); MONOCYTES PERCENT AUTO 9 % (4-13); Mean Corpuscular HGB 33.9 pg (26.0-34.0); Mean Corpuscular HGB Conc 33.5 g/dL (31.5-36.5); Mean Corpuscular Volume 101 fL (80-100); Mean Platelet Volume 10.4 fL (9.1-12.4); NEUTROPHILS ABSOLUTE AUTO 2.24 K/mm3 (1.96-9.15); NEUTROPHILS PERCENT AUTO 52 % (41-73); Platelet Count 151 K/mm3 (150-400); RDW Coefficient Variation 14.7 % (11.7-14.2); RDW Standard Deviation 54.4 fL (35.1-46.3); Red Blood Cell Count 2.51 M/mm3 (4.30-5.90); White Blood Cell Count 4.34 K/mm3 (4.00-11.30)
[2022-06-12 06:20] LABS: Bun/Creatinine Ratio 12.3 (12.0-20.0); Creatinine, Blood 1.79 mg/dL (0.60-1.20); Potassium, Blood 3.7 mmol/L (3.5-5.5)
--- NOTE | 2022-06-12 07:12 | NUR ---
LAMP SHADE ASSEMBLER SUMMARY: A&O TO SELF AND SOMETIMES PLACE WITH INTERMITTENT CONFUSION. VSS. SLIGHTLY BRADYCARDIC THIS AM, WHICH APEARS TO BE NORMAL FOR HIM. REMAINS IN BILATERAL SOFT WRIST RESTRAINTS SECONDARY TO PULLING AT OSTOMY, LEON AND IV. RESTRAINTS RENEWED AT [address] CORNELL. REPORT TO ONCOMING RN. REPORT TO ONCOMIN RN.
--- NOTE | 2022-06-12 16:15 | NUR ---
DAYSHIFT SUMMARY Patient resting comfortably in bed this morning, 0900 removed soft wrist restraints. Patient doing well this morning, has not tried to pullout IV/ostomy bag. Alert & Oriented to person/place. MD assessed patient at bedside, discontinued restraint order. MD requested patient work with therapy today, called but therapy unable to add patient to schedule today. Orders to increase diet as tolerated. Patient tolerating intake, takes pills whole w/ water. No difficulty or coughing observed. Skin dry & flakey, patient scratching arms, picking scabs off arms. Patient reported that he feels anxious and his hands gets fidigity. Gave patient small ball to keep his hands busy. Applied benedryl cream to arms for pruritis. Colostomy bag CDI, brown liquid output, burped bag several times. This afternoon patient reported hallucinations, reported seeing a dog & asked why his bed was moving. No other conerns at this time, patient continues to do well, has not pulled at lines, no soft restraints needed this shift. Patient resting comfortably in bed, calls for help when needed. Vitals stable. Will continue to monitor, awaiting discharge planning.
--- NOTE | 2022-06-13 03:21 | NUR ---
ROUTINE APRESOLINE AND METOPROLOL HELD AT BEDTIME D/T SBP <105 PER EMR.
[2022-06-13 05:35] LABS: BASOPHILS ABSOLUTE AUTO 0.03 K/mm3 (0.00-0.23); BASOPHILS PERCENT AUTO 1 % (0-2); EOSINOPHILS ABSOLUTE AUTO 0.38 K/mm3 (0.00-0.68); EOSINOPHILS PERCENT AUTO 7 % (0-6); Hematocrit 23.6 % (37.0-53.0); Hemoglobin 7.9 g/dL (13.5-17.5); IMMATURE GRAN ABSOLUTE AUTO 0.05 K/mm3 (0.00-0.10); IMMATURE GRAN PERCENT AUTO 1 % (0-1); LYMPHOCYTES ABSOLUTE AUTO 1.22 K/mm3 (0.84-5.20); LYMPHOCYTES PERCENT AUTO 21 % (21-46); MONOCYTES ABSOLUTE AUTO 0.46 K/mm3 (0.16-1.47); MONOCYTES PERCENT AUTO 8 % (4-13); Mean Corpuscular HGB 33.5 pg (26.0-34.0); Mean Corpuscular HGB Conc 33.5 g/dL (31.5-36.5); Mean Corpuscular Volume 100 fL (80-100); Mean Platelet Volume 10.8 fL (9.1-12.4); NEUTROPHILS ABSOLUTE AUTO 3.57 K/mm3 (1.96-9.15); NEUTROPHILS PERCENT AUTO 62 % (41-73); Platelet Count 151 K/mm3 (150-400); RDW Coefficient Variation 14.7 % (11.7-14.2); RDW Standard Deviation 53.5 fL (35.1-46.3); Red Blood Cell Count 2.36 M/mm3 (4.30-5.90); White Blood Cell Count 5.71 K/mm3 (4.00-11.30)
[2022-06-13 05:55] LABS: Bun/Creatinine Ratio 12.8 (12.0-20.0); Calcium, Blood 9.6 mg/dL (8.5-10.1); Creatinine, Blood 1.88 mg/dL (0.60-1.20); Potassium, Blood 3.8 mmol/L (3.5-5.5)
--- NOTE | 2022-06-13 07:25 | NUR ---
FRUIT CUTTER SUMMARY: A&O TO SELF, ONLY. CONFUSED ABOUT PLACE, TIME AND SITUATION. BP LOW LAST EVENING; APRESOLINE AND METOPROLOL HELD. NO C/O PAIN. C/O ITCHING ALL OVER BODY AND DOES HAVE A HIVEY RASH; BENADRYL CREAM APPLIED TWICE DURING SHIFT. OSTOMY BAG CHANGED x2. MEPILEX x2 ON BOTTOM. REPORT TO ONCOMING RN.
--- NOTE | 2022-06-13 16:28 | NUR ---
DAYSHIFT SUMMARY Patient doing well this shift, AOx2, pleasant & cooperative with cares. ordered 1L LR x1. Provided caregiver training on colostomy care to patients daughter. Patients daughter verbalized understanding, declined to have driver license reviewing officer coslotomy care again tomorrow before discharge. Patient doing well, able to reposition self in bed, and move to edge of bed w/o assistance. Patient standing next to bed, steady on his feet, demonstrated marching in place. Patient wanted to walk, with 2- staff assist/gait belt/FWW patient walked 140feet. Tolerated activity, no SOB/weakness observed, staff holding gaitbelt for safety, but patient ambulated with minimal assist. Vitals stable this shift. Will continue plan of care, plan for discharge tomorrow.
--- NOTE | 2022-06-14 00:46 | NUR ---
PT WITH WELT-TYPE RASH ON UPPER EXTREMITIES AND SCABBED SCRATCHES WITH SOME BLEEDING ON LOWER EXTREMITIES. ITCHING AND DIGGING AT SKIN. TOPICAL BENADRYL/ZINC ADMINISTERED WITH MINIMAL EFFICACY. CALL TO ON-CALL REQUESTING PO/SYSTEMIC ANTIHISTAMINE. Rx DIPHENHYDRAMINE 25MG PO Q6H SCRATCHING/ITCHING.
[2022-06-14 05:56] LABS: Hematocrit 25.2 % (37.0-53.0); Hemoglobin 8.4 g/dL (13.5-17.5)
[2022-06-14 06:19] LABS: Bun/Creatinine Ratio 13.7 (12.0-20.0); Calcium, Blood 8.9 mg/dL (8.5-10.1); Creatinine, Blood 1.61 mg/dL (0.60-1.20)
--- NOTE | 2022-06-14 07:36 | NUR ---
TECHNICAL SERVICES SPECIALIST SUMMARY: A&O TO PERSON AND SELF, ONLY. INTERMITTENT CONFUSION. REQUIRES CONSTANT REMINDING TO NOT SCRATCH AT ARMS. WAS ABLE TO GET Rx FOR PRN BENADRYL WHICH SEEMED TO MORE EFFECTIVE FOR ITCHING THAN TOPICAL CREAM. OSTOMY BAG HAVING DIFFICULTY ADHERING TO SKIN SECONDARY TO BEGINNING STAGES OF BREAKDOWN. CHANGED BAG TWICE DUE TO DIFFICULTY STICKING. DID END UP USING TAGEDERM AROUND EDGES OF WAFER OT AID IN ADHERENCE WELL ABDOMINAL BINDER BECAUSE PATIENT WAS FOUND TO BE PULLING ON THE BAG AT ONE POINT. GAVE BED BATH IN PROCESS OF CLEANING HIM UP. CLEANED ALL EXTREMITIES WITH WARM, SOAPY WATER, DRIED, AND REAPPLIED BENADRYL CREAM. STOOL IS MORE RED AND LIQUIDY THAN IT WAS YESTERDAY. DOES NOT CALL FOR ASSISTANCE AND WAS NOTIFIED BY CAMERA SURVEILLANCE MULTIPLE TIMES WHEN HE WAS EITHER GETTING UP OUT OF BED TO USE THE URINAL OR SCRATCHING. DISCUSSED WITH DAY SHIFT RN.
--- NOTE | 2022-06-14 16:32 | NUR ---
No acute changes to patient status, alert/oriented x2-3, needs reoriented to time/situation. Patient OOB for meals, worked with therapy today. PT recommending homehealth therapy, plan is to discharge today. GIFTY RN came and provided instruction on ostomy care, provided family with resources. Reviewed discharge instructions with pt & daughter, verbalized understanding. Patient left unit at 1530.
== END 2022-06-14 15:36 | disposition home health service (06) | DRG 682 ==
LOC: ER 13:09 → PCU 14:50 → MEDS 14:50 → ERHOLD 14:50 → PCU 15:43 → MEDS 06-10 11:39
PROVIDERS: Family Medicine; Student in an Organized Health Care Education/Training Program; ADMIT Internal Medicine
DX: N17.9 Acute kidney failure, unspecified (principal); G92.8 Other toxic encephalopathy; E87.20 Acidosis, unspecified; N39.0 Urinary tract infection, site not specified; R44.3 Hallucinations, unspecified; N18.30 Chronic kidney disease, stage 3 unspecified; D63.1 Anemia in chronic kidney disease; Z66 Do not resuscitate; R41.0 Disorientation, unspecified; R54 Age-related physical debility; E87.5 Hyperkalemia; I12.9 Hypertensive chronic kidney disease with stage 1 through stage 4 chronic kidney disease, or unspecified chronic kidney disease; I48.0 Paroxysmal atrial fibrillation; R33.9 Retention of urine, unspecified; L29.8 Other pruritus; E86.0 Dehydration; R45.1 Restlessness and agitation; H35.30 Unspecified macular degeneration; N40.1 Benign prostatic hyperplasia with lower urinary tract symptoms; E78.5 Hyperlipidemia, unspecified; K40.20 Bilateral inguinal hernia, without obstruction or gangrene, not specified as recurrent; M10.9 Gout, unspecified; H40.9 Unspecified glaucoma; K21.9 Gastro-esophageal reflux disease without esophagitis; Z92.3 Personal history of irradiation; Z85.038 Personal history of other malignant neoplasm of large intestine; Z90.49 Acquired absence of other specified parts of digestive tract; Z85.46 Personal history of malignant neoplasm of prostate; Z79.899 Other long term (current) drug therapy; Z79.811 Long term (current) use of aromatase inhibitors; Z79.01 Long term (current) use of anticoagulants; Z79.02 Long term (current) use of antithrombotics/antiplatelets; Z93.2 Ileostomy status; Z98.52 Vasectomy status; Z87.891 Personal history of nicotine dependence; Z98.890 Other specified postprocedural states; Z87.01 Personal history of pneumonia (recurrent)
CPT/HCPCS: 36415; 70450; 76770; 80048; 80053; 81001; 82947; 83735; 84132; 85014; 85018; 85025; 85027; 87086; 93005; 93010; 94640; 94664; 94760; 94762; 97116; 97162; 97165; 97530; 97535; 99285-25; A9270; J0610; J1450; J1630; J1644; J1815; J3411; J7030; J7120

== ENCOUNTER 2022-06-25 17:57 | Inpatient (IN) | payer OTHER, MEDICARE ==
[~2022-06-25] VITALS: Ht 177.8 cm; Wt 85.4 kg
[~2022-06-25 17:57] MED LIST changes: +Acetaminophen650 M1 PO; +Diflucan100 MG PO; +FLUC200 PO; +FOLI1 PO; +HYDR10 PO; +IPRAT-ALBUT 0.5-3 ML INH; +LACT10SY PO; +METO100 PO; +METO25ER PO; +ONDA4 PO; -PANT40; +PANT40 PO; -TIMO10T; +TIMO10T PO; +VISBIOME 112.51 EACH PO; +XARELTO20 MG PO
[2022-06-25 18:28] LABS: BASOPHILS ABSOLUTE AUTO 0.01 K/mm3 (0.00-0.23); BASOPHILS PERCENT AUTO 0 % (0-2); EOSINOPHILS ABSOLUTE AUTO 0.12 K/mm3 (0.00-0.68); EOSINOPHILS PERCENT AUTO 2 % (0-6); Hematocrit 21.9 % (37.0-53.0); Hemoglobin 7.7 g/dL (13.5-17.5); IMMATURE GRAN ABSOLUTE AUTO 0.11 K/mm3 (0.00-0.10); IMMATURE GRAN PERCENT AUTO 2 % (0-1); LYMPHOCYTES PERCENT AUTO 16 % (21-46); MONOCYTES PERCENT AUTO 10 % (4-13); Mean Corpuscular HGB 34.1 pg (26.0-34.0); Mean Corpuscular HGB Conc 35.2 g/dL (31.5-36.5); Mean Corpuscular Volume 97 fL (80-100); Mean Platelet Volume 11.3 fL (9.1-12.4); NEUTROPHILS ABSOLUTE AUTO 4.72 K/mm3 (1.96-9.15); NEUTROPHILS PERCENT AUTO 70 % (41-73); NRBC ABSOLUTE 0.03 K/mm3 (0.00-0.02); NRBC Auto 0.4 /100 WBC (0.0-0.2); Platelet Count 145 K/mm3 (150-400); RDW Coefficient Variation 15.7 % (11.7-14.2); RDW Standard Deviation 55.2 fL (35.1-46.3); Red Blood Cell Count 2.26 M/mm3 (4.30-5.90); White Blood Cell Count 6.76 K/mm3 (4.00-11.30)
[2022-06-25 18:46] LABS: Albumin, Blood 2.3 g/dL (3.4-5.0); Albumin/Globulin Ratio 0.6 (0.8-1.8); Bilirubin, Total 0.2 mg/dL (0.1-1.0); Bun/Creatinine Ratio 18.1 (12.0-20.0); Calcium, Blood 9.6 mg/dL (8.5-10.1); Creatinine, Blood 1.77 mg/dL (0.60-1.20); Potassium, Blood 4.9 mmol/L (3.5-5.5); Total Protein, Blood 6.3 g/dL (6.4-8.2)
[2022-06-25 20:03] LABS: Influenza A, PCR NEGATIVE (NEGATIVE); Influenza B, PCR NEGATIVE (NEGATIVE); Resp Syncytial Virus, PCR NEGATIVE (NEGATIVE); SARS-Cov-2 (COVID-19) PCR, MMC NEGATIVE (NEGATIVE)
[2022-06-25 22:29] LABS: PCO2 Arterial 32.7 mmHg (35-45); PO2 Arterial 75.5 mmHg (80-100)
[2022-06-25 22:30] LABS: pH Blood Arterial 7.28 (7.35-7.45)
[2022-06-25 23:22] LABS: Source, Urine Foley catheter
[2022-06-25 23:24] LABS: Bilirubin, Urine Neg (Neg); Blood, Urine 3+ (Neg); Glucose Qualitative, Urine Neg (Neg); Ketones, Urine Neg (Neg); Leukocyte Esterase, Urine 3+ (Neg); Nitrite, Urine Neg (Neg); Protein, Urine 1+ (Neg); Specific Gravity, Urine 1.015 (1.003-1.022); Urobilinogen, Urine NORM (Normal)
[2022-06-25 23:25] LABS: Appearance, Urine Hazy (Clear); Color, Urine Pale Yellow (P-Yellow)
[2022-06-25 23:51] LABS: Amorphous Light (0-Heavy); Bacteria Few /hpf; Red Blood Cells, Urine 0-2 /hpf (0-2); Squamous Epithelial Cells Not Seen /hpf (Few); White Blood Cells, Urine TNTC /hpf (0-5)
[2022-06-26 02:40] LABS: BASOPHILS PERCENT AUTO 0 % (0-2); EOSINOPHILS ABSOLUTE AUTO 0.08 K/mm3 (0.00-0.68); EOSINOPHILS PERCENT AUTO 2 % (0-6); Hematocrit 18.6 % (37.0-53.0); Hemoglobin 6.6 g/dL (13.5-17.5); IMMATURE GRAN ABSOLUTE AUTO 0.05 K/mm3 (0.00-0.10); IMMATURE GRAN PERCENT AUTO 1 % (0-1); LYMPHOCYTES ABSOLUTE AUTO 0.47 K/mm3 (0.84-5.20); LYMPHOCYTES PERCENT AUTO 12 % (21-46); MONOCYTES ABSOLUTE AUTO 0.26 K/mm3 (0.16-1.47); MONOCYTES PERCENT AUTO 6 % (4-13); Mean Corpuscular HGB Conc 35.5 g/dL (31.5-36.5); Mean Corpuscular Volume 96 fL (80-100); Mean Platelet Volume 11.1 fL (9.1-12.4); NEUTROPHILS ABSOLUTE AUTO 3.18 K/mm3 (1.96-9.15); NEUTROPHILS PERCENT AUTO 79 % (41-73); NRBC ABSOLUTE 0.03 K/mm3 (0.00-0.02); NRBC Auto 0.7 /100 WBC (0.0-0.2); Platelet Count 132 K/mm3 (150-400); RDW Coefficient Variation 15.8 % (11.7-14.2); RDW Standard Deviation 54.8 fL (35.1-46.3); Red Blood Cell Count 1.94 M/mm3 (4.30-5.90); White Blood Cell Count 4.04 K/mm3 (4.00-11.30)
[2022-06-26 02:56] LABS: Albumin, Blood 2.3 g/dL (3.4-5.0); Albumin/Globulin Ratio 0.7 (0.8-1.8); Bilirubin, Total 0.2 mg/dL (0.1-1.0); Bun/Creatinine Ratio 19.1 (12.0-20.0); Calcium, Blood 8.3 mg/dL (8.5-10.1); Creatinine, Blood 1.52 mg/dL (0.60-1.20); Globulin, Blood 3.3 g/dL (2.2-4.0); Potassium, Blood 4.1 mmol/L (3.5-5.5); Total Protein, Blood 5.6 g/dL (6.4-8.2)
[2022-06-26 04:00] LABS: CPK Creatine Kinase 46 U/L (39-308)
--- NOTE | 2022-06-26 05:09 | NUR ---
SHIFT SUMMARY: PT. CAME IN OVERNIGHT WITH AMS, HYPOTHERMIA OF 89 DEGREES, HYPOTENSIVE AND ON LEVOPHED @ 8, HYPOXIC ON A NON-REBREATHER, AND BRADYCARDIC INTO THE 40S. PT. RECIEVED 1 UNIT OF PRBCS THIS AM FOR A HEMOGLOBIN OF 6.6. PT. IS STILL ALTERED BUT IS LESS IRRITABLE THAN BEFORE. PT. WAS PLACED ON A WARMING BLANKET AND NOW HAS A TEMP OF 96 DEGREES. ALBUMIN AND BICARB WERE GIVEN AND A BICARB DRIP WAS STARTED AND NOW THE PT. IS OFF LEVOPHED AND MAINTAINING BPS WNL. PT. IS ON CPAP AND IS NOW SATTING IN THE HIGH 90S. PT. HR ALSO CAME UP INTO THE 70S. PT. IS RESTING COMFORTABLY IN BED AT THIS TIME.
--- NOTE | 2022-06-26 07:00 | NUR ---
ASSUME CARE: I have assumed care of this patient.
[2022-06-26 07:29] LABS: IMMATURE RETIC FRACTION 28.8 % (2.3-16.0); RETIC HGB EQUIVALENT 36.7 pg (28.20-36.60); RETICULOCYTE ABSOLUTE 0.0855 M/mm3 (0.0200-0.1100); RETICULOCYTE COUNT PERCENT 4.34 % (0.50-2.50)
[2022-06-26 08:02] LABS: Percent Saturation 27.3 % (20.0-50.0)
[2022-06-26 10:43] LABS: Hematocrit 21.9 % (37.0-53.0); Hemoglobin 7.9 g/dL (13.5-17.5)
[2022-06-26 12:27] LABS: CPK Creatine Kinase 40 U/L (39-308); U Amphetamine Screen Not Detected; U Barbituate Screen Not Detected; U Benzodiazapine Screen Not Detected; U Buprenorphine Screen Not Detected; U Cannabinoids Screen Not Detected; U Cocaine Screen Not Detected; U Methadone Screen Not Detected; U Methamphetamine Screen Not Detected; U Opiates Screen Not Detected; U Oxycodone Screen Not Detected; U Phencyclidine Screen Not Detected; U Propoxyphene Screen Not Detected
--- NOTE | 2022-06-26 17:49 | NUR ---
UPDATE: without stimulation, pt stacking breaths on ventilator and not ventilating. Propofol increased to 80. RT called to bedside. Dr Tucker paged. Pt spontaneously began ventilating again without needing to be bagged.
[2022-06-26 18:21] LABS: Hematocrit 22.3 % (37.0-53.0)
--- NOTE | 2022-06-26 19:27 | NUR ---
SHIFT SUMMARY: NEURO: pt restless in bed. He is alert, oriented x 0. Moves all extremities to reposition himself. Up in chair for two hours, did not tolerate well. He does not stay on pillows when turned, so he was floated on pillows to prevent skin breakdown all day. RESPIRATORY: tolerating 4L NC for a few hours at a time. Currently on CPAP CARDIAC: sinus rhythm with stable BPs GI/: brown output from colostomy. Agrawal patent and draining to gravity. SKIN: no new breakdown noted PSYCH/SOCIAL: family at bedside throughout the day.
[2022-06-27 02:12] LABS: Hematocrit 23.6 % (37.0-53.0); Hemoglobin 8.3 g/dL (13.5-17.5)
--- NOTE | 2022-06-27 06:01 | NUR ---
END OF SHIFT NO ACUTE OVERNIGHT EVENTS PT HAS BEEN STABLE ALBIN. PT IS SEEMING TO BE DELERIOUS. HE HAS NOT SLEEPT ALL SHIFT. HE SEEMS TO BE HAVING CONVERSATIONS WITH PEOPLE NOT CURRENTLY PRESENT WHEN ATTEMPTING TO SWITCH OVER TO NC FROM CPAP PT STARTED TO SPIT HIS FLEM. HE IS NOT REDIRECTABLE DOESNT NOT FOLLOW COMANDS. WHEN I WAS ABLE TO UNDERSTAND WHAT PT WAS SAYING IT WAS MOSTLY CUSSING AND AN OCCASIONAL CHUCKEL. WILL CONTINUE TO MONITOR AND REPORT OFF TO ONCOMING RN
--- NOTE | 2022-06-27 07:00 | NUR ---
ASSUME CARE: I have assumed care of this patient.
[2022-06-27 10:40] LABS: Hemoglobin 8.6 g/dL (13.5-17.5)
[2022-06-27 10:56] LABS: Calcium, Blood 8.4 mg/dL (8.5-10.1); Creatinine, Blood 1.17 mg/dL (0.60-1.20); Potassium, Blood 3.4 mmol/L (3.5-5.5)
--- NOTE | 2022-06-27 14:04 | NUR ---
CARE CONF WITH BEDSIDE RN, PT HAS NOT BEEN DOING WELL WITH INCREAED ANXIETY, RESTLESSNESS AND IS NOT SLEEPING. PT IS ON BIPAP AND IS NT TOLERATING IT WELL. PT CONTINUES TO PICK AT THE SHEETS OR ANYTHING ELSE HE CAN GET AHOLD OF. RN REPORTS PT CONTINUES TO HALLUCINATE AND WILL CARRY ON A FULL CONVERSATION WITH "HIS DAUGHTER" WHEN SHE IS NOT IN THE ROOM. CENTRAL LINE WAS DCD AND ACTIVITY APRON IS PLACED ON THE PT. PT IS LESS ANXIOUS WHEN I TOUCH HIS ARM AND TELL HIM TO CLOSE HIS EYES AND TRY TO SLEEP. FAMILY HAS STEPPED OUT, WILL PLAN TO MEET WITH DAUGHTER WHEN SHE RETURNS TO TALK ABOUT ADVANCD CARE PLANNING.
--- NOTE | 2022-06-27 16:14 | NUR ---
CALL PLACED TO DAUGHTER, JASMIN FOR FOLLOW UP ON PT RECENT VISIT. JASMIN REPORTS SHE WOKE UP IN THE NIGHT AND FOUND HER FATHER LYING ON THE FLOOR. SHE REPORTS HE WAS AWAKE AND ABLE TO HELP HER GET HIM BACK ON HIS FEET. SHE REPORTS HE WAS HAVING TROUBLE BREATHING AND THEN CALLED THE AMB TO TAKE PT TO THE HOSITAL. SHE REPORTS ITS UNCLEAR WHAT IS GOING ON WITH HER FATHER, BUT IS CONVINCED THAT HE MUST HAVE AN INFECTION SOMEWHERE THAT IS CAUSING THIS. PROVIDED EMOTIONAL SUPPORT AND THERAPEUTIC LISTENING AND ADVISED THAT I WILL CONTINUE TO FOLLOW AND OFFER SUPPORT.
--- NOTE | 2022-06-27 18:42 | NUR ---
SHIFT SUMMARY: NEURO: pt a/o x 0. OJEDA. This RN was informed by mine shifter that pt did not sleep overnight. He was encouraged to sleep until noon today with lights and stimulation low. He did not sleep today either. Restraints removed after centeral line removal. [place]ola apron seems to distract pt from other lines and tubing for the time being. CARDIAC: difficult to analyze rhythm on monitor due to pt's continual restlessness. Sinus arrythmia noted. Stable BPs RESPIRATORY: encouraged to cough and deep breath when desatting. He quickly comes back up to 90s when he is able to follow direction. Currently tolerating 4L NC well. RN performed manual chest phisio with good effect and tolerance. GI/: 50mls of dark brown, liquid output from colostomy today. Agrawal draining to gravity. PSYCH/SOCIAL: pt hallucinating talking with hallucinations in room. He reaches up for hallucinations occasionally. Family at bedside for short times throughout the day.
[2022-06-27 21:29] LABS: Creatinine, Blood 1.23 mg/dL (0.60-1.20); Vancomycin, Trough 16.7 ug/mL (5.0-10.0)
--- NOTE | 2022-06-28 01:22 | NUR ---
ASSUMED CARE OF PATIENT AT 0000. PATIENT EXAM CONSISTENT WITH PREVIOUS RN CHARTING. PATIENT UNABLE TO PARTICIPATE IN EXAN. REMAINS ON 4L NC.
[2022-06-28 03:49] LABS: BASOPHILS ABSOLUTE AUTO 0.03 K/mm3 (0.00-0.23); BASOPHILS PERCENT AUTO 1 % (0-2); EOSINOPHILS ABSOLUTE AUTO 0.25 K/mm3 (0.00-0.68); EOSINOPHILS PERCENT AUTO 5 % (0-6); Hematocrit 23.7 % (37.0-53.0); Hemoglobin 8.3 g/dL (13.5-17.5); IMMATURE GRAN ABSOLUTE AUTO 0.06 K/mm3 (0.00-0.10); IMMATURE GRAN PERCENT AUTO 1 % (0-1); LYMPHOCYTES ABSOLUTE AUTO 1.04 K/mm3 (0.84-5.20); LYMPHOCYTES PERCENT AUTO 20 % (21-46); MONOCYTES ABSOLUTE AUTO 0.62 K/mm3 (0.16-1.47); MONOCYTES PERCENT AUTO 12 % (4-13); Mean Corpuscular HGB 33.6 pg (26.0-34.0); Mean Corpuscular Volume 96 fL (80-100); Mean Platelet Volume 10.8 fL (9.1-12.4); NEUTROPHILS ABSOLUTE AUTO 3.13 K/mm3 (1.96-9.15); NEUTROPHILS PERCENT AUTO 61 % (41-73); NRBC ABSOLUTE 0.03 K/mm3 (0.00-0.02); NRBC Auto 0.6 /100 WBC (0.0-0.2); Platelet Count 130 K/mm3 (150-400); RDW Coefficient Variation 17.3 % (11.7-14.2); RDW Standard Deviation 60.1 fL (35.1-46.3); Red Blood Cell Count 2.47 M/mm3 (4.30-5.90); White Blood Cell Count 5.13 K/mm3 (4.00-11.30)
[2022-06-28 04:05] LABS: Albumin, Blood 2.1 g/dL (3.4-5.0); Albumin/Globulin Ratio 0.6 (0.8-1.8); Bilirubin, Total 0.5 mg/dL (0.1-1.0); Bun/Creatinine Ratio 10.3 (12.0-20.0); Calcium, Blood 8.5 mg/dL (8.5-10.1); Creatinine, Blood 1.17 mg/dL (0.60-1.20); Globulin, Blood 3.7 g/dL (2.2-4.0); Potassium, Blood 3.4 mmol/L (3.5-5.5); Total Protein, Blood 5.8 g/dL (6.4-8.2)
--- NOTE | 2022-06-28 06:19 | NUR ---
PATIENT INTERMITTENTLY SLEPT OVERNIGHT. OFTEN RESTLESS BUT OCCUPIED WITH ACTIVITY APRON. REMAINS UNABLE TO PARTICIPATE IN NEURO EXAM. DOES NOT FOLLOW COMMANDS. MINIMALLY VERBAL. 4L NC. LEON IN PLACE WITH ADEQUATE URINE OUTPUT.
--- NOTE | 2022-06-28 08:57 | NUR ---
Assumed care at 0715. Bedside report recieved from NOC shift RN. Pt is resting comfortably on 4L NC. Has activity blanket on lap, no restraints. Has LR at 75 infusing through a LUE powerglide. Ileostomy with consistent output despite being NPO. Current status is PCU, awaiting bed. RN to continue to follow.
--- NOTE | 2022-06-28 17:53 | NUR ---
PER RN, PT SLEPT BETTER LAST NIGHT AND HAS BEEN LESS ANXIOUS TODAY. PT HAS BEEN ON ROOM AIR ALL DAY AND RECENTLY STARTED TO DESATURATE AND IS NOT BACK ON BIPAP. PT IS SITTING UP IN BED, ALERT AND ANSWERING QUESTIONS. PT STILL IS HALLUCINATING AND SLIGHTLY CONFUSED. BUT IS MORE COOPERATIVE AND REDIRECTABLE. SPOKE TO PT DAUGHTER, JASMIN TODAY. SHE REPORTS THAT HER DAD LOOKS BETTER TODAY, ADMITS THAT HE RECOGNIZES THAT HE IS STILL CONFUSED AND HALLUCINATING. SHE INQUIRES ABOUT HOSPICE AND APPREARS THAT SHE IS MORE AWARE THAT HER FATHER HAS BEEN SHOWING DECLINE OVER THE LAST COUPLE OF MONTHS. SHE REPORTS PALLIATIVE CARE WAS SUPPOSED TO COME TODAY AND ASSESS HER FATHER AND SHE HAS RESCHEDULED WITH THEM. WILL CONTINUE TO REASSESS PT FOR DAILY PROGRESS AND GENTLY CONTINUE ADDITIONAL ADVANCED CARE PLANNING WITH DAUGHTER TO MAKE SURE HE HAS A SAFE AND SUSTAINABLE DC PLAN.
--- NOTE | 2022-06-28 18:58 | NUR ---
END OF SHIFT SUMMARY PT IS ALERT AND ORIENTED TO PERSON AND TIME, FORGETS HE IS IN THE HOSPITAL BUT IS REORIENTED EASILY. HAD SPEECH THERAPY EVAL TODAY AND [facility] SOFT DIET ORDERED. PT WAS FED LUNCH BY PCT AND ATE 90% OF HIS MEAL. WAS ON ROOM AIR FOR THE MAJORITY OF THE SHIFT UNTIL PT FELL ASLEEP REQUIRING CPAP WITH 6 LITERS O2 BLED IN. HAS BEEN INTERMITTENTLY FIDGETY BUT STATES HE IS MORE COMFORTABLE IN THE RECLINER. SHIFTED WT OFTEN WITH ASSISTANCE. DECLINES DINNER STATING HE IS NOT HUNGRY. ILEOSTOY WITH 175ML LOOSE GREEN/BROWN OUTPUT. LEON PATENT AND DRAINING CLEAR YELLOW URINE. SKIN WITH SCATTERED SCABS THAT PT HAS TO BE REMINDED NOT TO PICK AT. POWERGLIDE TO LEFT UPPER ARM INFUSING LR @ 75ML/HR. PER MD, WILL D/C FLUID WHEN PT HAS ADEQUATE PO INTAKE. FAMILY AT BEDSIDE TO VISIT, UPDATED ON POC.
--- NOTE | 2022-06-29 06:22 | NUR ---
PATIENT INTERMITTENTLY RESTED OVERNIGHT. ANSWERS ORIENTATION QUESTIONS CORRECTLY BUT REMAINS RESTLESS AND FORGETFUL. REQUIRES FREQUENT REMINDERS NOT TO PICK AT EQUIPMENT. PATIENT'S MONITOR DISPLAYS SA, AND BRADYCARDIA WHILE SLEEPING. PATIENT IS ON 4L NC ALTHOUGH HE FREQUENTLY REMOVES THIS. Q2 TURNS AND SCD'S IN PLACE.
[2022-06-29 08:12] LABS: BASOPHILS ABSOLUTE AUTO 0.02 K/mm3 (0.00-0.23); BASOPHILS PERCENT AUTO 0 % (0-2); EOSINOPHILS ABSOLUTE AUTO 0.67 K/mm3 (0.00-0.68); EOSINOPHILS PERCENT AUTO 13 % (0-6); Hematocrit 26.1 % (37.0-53.0); Hemoglobin 8.5 g/dL (13.5-17.5); IMMATURE GRAN ABSOLUTE AUTO 0.06 K/mm3 (0.00-0.10); IMMATURE GRAN PERCENT AUTO 1 % (0-1); LYMPHOCYTES ABSOLUTE AUTO 0.78 K/mm3 (0.84-5.20); LYMPHOCYTES PERCENT AUTO 15 % (21-46); MONOCYTES PERCENT AUTO 10 % (4-13); Mean Corpuscular HGB 32.2 pg (26.0-34.0); Mean Corpuscular HGB Conc 32.6 g/dL (31.5-36.5); Mean Corpuscular Volume 99 fL (80-100); Mean Platelet Volume 10.4 fL (9.1-12.4); NEUTROPHILS ABSOLUTE AUTO 3.14 K/mm3 (1.96-9.15); NEUTROPHILS PERCENT AUTO 61 % (41-73); Platelet Count 112 K/mm3 (150-400); RDW Coefficient Variation 17.1 % (11.7-14.2); RDW Standard Deviation 60.9 fL (35.1-46.3); Red Blood Cell Count 2.64 M/mm3 (4.30-5.90); White Blood Cell Count 5.17 K/mm3 (4.00-11.30)
[2022-06-29 08:28] LABS: Bun/Creatinine Ratio 11.7 (12.0-20.0); Calcium, Blood 8.4 mg/dL (8.5-10.1); Creatinine, Blood 0.94 mg/dL (0.60-1.20); Magnesium, Blood 2.2 mg/dL (1.6-2.4); Potassium, Blood 2.9 mmol/L (3.5-5.5)
--- NOTE | 2022-06-29 08:48 | NUR ---
Call to Dr Kwon, left voice message regarding this morning's potassium level 2.9 and magnesium normal at 2.2. vel combs'd
--- NOTE | 2022-06-29 10:11 | NUR ---
Call to Dr. Kwon to notify again of potassium level. No new orders have been seen since voice message was left over 1 hour ago. This time I was able to reach the resident, and she stated that she would put orders in now.
[2022-06-29] MEDS ORDERED: ALLO300 PO (11:05)
[2022-06-29] MEDS ORDERED: NIFE60ER PO (11:06)
[2022-06-29] MEDS ORDERED: TIMO.25OPS BOTHEYES (11:08)
--- NOTE | 2022-06-29 11:12 | NUR ---
Call to Dr. Kimball (Dr. Palumbo answered for her) to request updated correction on dosage of Flomax as well as two eye drops which were updated on [facility] rec with the patient's daughter Warner just now.
--- NOTE | 2022-06-29 13:18 | NUR ---
Hi is sitting in the recliner, appears to be napping. continuous oximetry 96% SpO2 on room air.
--- NOTE | 2022-06-29 14:11 | NUR ---
Pt said that he needed to have BM. Assisted to BSC; he passed very pale corado cloudy liquid; 200 cc liquid brown stool emptied from the ostomy bag. Assisted back to sit in the recliner chair. Pt is coughing up secretions, corado in color, frequently large amounts, and expectorating into tissues.
--- NOTE | 2022-06-29 14:40 | NUR ---
Spiritual Care Visit. Pt. is awake and sitting in a recliner. Pts. son is present and welcomes my visit. Facilitate a recent family life review. Pt. is pleasant, but displays moments of confusion. Rapport is established. Pts. brother then arrives. This data input clerk excuses himself. Pt. and Son verbalize gratitude for the spiritual care visit. Will remain available to the Pt. and family.
--- NOTE | 2022-06-29 17:07 | NUR ---
Telephone report given to SAEID Meneses in anticipation of pt transferring to room 302 shortly.
--- NOTE | 2022-06-29 17:45 | NUR ---
ICU TRANSFER: PT A&O X3/4, PLEASANT, FOLLOWS DIRECTIONS WELL. PT ARRIVED VA , TRANSFERED FROM TO BED 1 PERSON WITH FWW AND GAIT BELT. PT HAS PG DIANA, FLUSHES AND DRAWS. PT HAS LR 75ML/HR RUNNING. PT ORIENTATED TO THE ROOM, CALL LIGHT AND STAFF. PT IN BED WITH CALL LIGHT WITHIN REACH AND BED ALARM ARMED.
[2022-06-29] MEDS ORDERED: LACT PO (20:45)
[2022-06-29 21:17] LABS: Vancomycin, Trough 16.6 ug/mL (5.0-10.0)
--- NOTE | 2022-06-30 03:38 | NUR ---
SHIFT SUMMARY NO OVERNIGHT EVENTS. PT SLEPT WELL OVERNIGHT. DENIES ANY PAIN/SOB. REMAINS ON ROOM AIR. ILEOSTOMY INTCT, GOOD OUTPUT. CONTINUES IV ABX. PT FORGETFUL, BED ALARM ON. WILL CONTINUE TO MONITOR.
[2022-06-30 05:16] LABS: BASOPHILS ABSOLUTE AUTO 0.03 K/mm3 (0.00-0.23); BASOPHILS PERCENT AUTO 1 % (0-2); EOSINOPHILS ABSOLUTE AUTO 0.71 K/mm3 (0.00-0.68); EOSINOPHILS PERCENT AUTO 15 % (0-6); Hematocrit 24.7 % (37.0-53.0); Hemoglobin 8.2 g/dL (13.5-17.5); IMMATURE GRAN ABSOLUTE AUTO 0.09 K/mm3 (0.00-0.10); IMMATURE GRAN PERCENT AUTO 2 % (0-1); LYMPHOCYTES ABSOLUTE AUTO 0.47 K/mm3 (0.84-5.20); LYMPHOCYTES PERCENT AUTO 10 % (21-46); MONOCYTES PERCENT AUTO 10 % (4-13); Mean Corpuscular HGB 32.4 pg (26.0-34.0); Mean Corpuscular HGB Conc 33.2 g/dL (31.5-36.5); Mean Corpuscular Volume 98 fL (80-100); Mean Platelet Volume 11.1 fL (9.1-12.4); NEUTROPHILS ABSOLUTE AUTO 3.11 K/mm3 (1.96-9.15); NEUTROPHILS PERCENT AUTO 63 % (41-73); Platelet Count 120 K/mm3 (150-400); RDW Coefficient Variation 16.4 % (11.7-14.2); RDW Standard Deviation 59.3 fL (35.1-46.3); Red Blood Cell Count 2.53 M/mm3 (4.30-5.90); White Blood Cell Count 4.91 K/mm3 (4.00-11.30)
[2022-06-30 05:47] LABS: Bun/Creatinine Ratio 15.8 (12.0-20.0); Calcium, Blood 8.6 mg/dL (8.5-10.1); Creatinine, Blood 0.95 mg/dL (0.60-1.20); Potassium, Blood 3.9 mmol/L (3.5-5.5)
--- NOTE | 2022-06-30 13:55 | NUR ---
Spoke with Primary RN Marly and discussed case. Brief supportive visit this afternoon. Pt is pleasantly confused and denies pain at this time. Pt does appear to have moments of clarity but mostly confused. Offered therapeutic listening and continued supportive visit. Palliative Care will remain available.
--- NOTE | 2022-06-30 18:16 | NUR ---
PATIENT MORE CONFUSED THIS EVENING, ATIENT REMOVED ILEOSTOMY BAD AND SMEARED THE STOOL EVERYWHERE. NEW ILEOSTOMY PLACED, BED BATH, EMILIA CARE, SHEETS CHANGED, PLEASANT TO CARE BUT NOT ORIENTED TO PLACE, TIME, OR STAFF. BARRIER CREAM TO SACRAL TEAR, ATTENDS CDI, DENIES PAIN. DIANA PG, LR AT 75. NO ACUTE CHANGES DURING SHIFT, BED ALARM ON, CALL LIGHT WITH IN REACH, WILL RELAY TO PM RN
--- NOTE | 2022-06-30 19:18 | NUR ---
RECEIVED BEDSIDE REPORT FROM MEREDITH RN. PT RESTING QUIETLY. RESP EVEN ON RA. BED ALARM ON. WILL PROVIDE CARE T/O SHIFT. CALL LT IN REACH.
--- NOTE | 2022-06-30 22:38 | NUR ---
PT CONFUSED. ALERT TO NAME ONLY. RESP EVEN ON RA. LR INFUSING AT 75 MLS/HR VIA PG IN DIANA WITHOUT DIFFICULTY. TOOK MEDS WHOLE WITH WATER WITHOUT DIFFICULTY. REMINDING PT OFTEN NOT SO PICK AND SCRATCH HIS SKIN. HAS SCATTERED SCABS AND SKIN IS FRAGILE AND DRY. WILL CONTINUE TO PROVIDE CARE. BED ALARM ON. CALL LT IN REACH.
--- NOTE | 2022-07-01 00:44 | NUR ---
PT RESTING QUIETLY. BED ALARM ON. CALL LT IN REACH.
--- NOTE | 2022-07-01 01:59 | NUR ---
PT RESTING QUIETLY. CALL LT IN REACH.
--- NOTE | 2022-07-01 04:04 | NUR ---
PT CONTINUES TO REST QUIETLY. CALL LT IN REACH.
--- NOTE | 2022-07-01 04:15 | NUR ---
SHIFT SUMMARY: CONFUSED DURING SHIFT. ALERT TO NAME ONLY. ON RA. LR AT 75 MLS/HR. SCATTERED DRY HEALING SCABS, PT ALSO REPORTS HE PICKS AT HIS SKIN, NOTED PLACES WHERE HE HAD PICKED AT ON HIS LEFT UPPER ARM AND CAUSED IT TO BLEED, MEPILEX PLACED. NO REPORTS OF PAIN, SOB, OR NAUSEA. PLAN AT DISCHARGE IS HOME WITH DAUGHTER WHO IS HIS CAREGIVER. WILL CONTINUE TO PROVIDE CARE UNTIL SHIFT REPORT TO ONCOMING NURSE.
[2022-07-01 05:16] LABS: BASOPHILS ABSOLUTE AUTO 0.02 K/mm3 (0.00-0.23); BASOPHILS PERCENT AUTO 1 % (0-2); EOSINOPHILS PERCENT AUTO 12 % (0-6); Hematocrit 23.7 % (37.0-53.0); Hemoglobin 7.9 g/dL (13.5-17.5); IMMATURE GRAN ABSOLUTE AUTO 0.04 K/mm3 (0.00-0.10); IMMATURE GRAN PERCENT AUTO 1 % (0-1); LYMPHOCYTES ABSOLUTE AUTO 0.79 K/mm3 (0.84-5.20); LYMPHOCYTES PERCENT AUTO 18 % (21-46); MONOCYTES ABSOLUTE AUTO 0.49 K/mm3 (0.16-1.47); MONOCYTES PERCENT AUTO 11 % (4-13); Mean Corpuscular HGB 32.4 pg (26.0-34.0); Mean Corpuscular HGB Conc 33.3 g/dL (31.5-36.5); Mean Corpuscular Volume 97 fL (80-100); Mean Platelet Volume 11.1 fL (9.1-12.4); NEUTROPHILS ABSOLUTE AUTO 2.52 K/mm3 (1.96-9.15); NEUTROPHILS PERCENT AUTO 58 % (41-73); Platelet Count 102 K/mm3 (150-400); RDW Coefficient Variation 16.1 % (11.7-14.2); RDW Standard Deviation 56.6 fL (35.1-46.3); Red Blood Cell Count 2.44 M/mm3 (4.30-5.90); White Blood Cell Count 4.36 K/mm3 (4.00-11.30)
[2022-07-01 05:34] LABS: Albumin/Globulin Ratio 0.6 (0.8-1.8); Bilirubin, Total 0.3 mg/dL (0.1-1.0); Bun/Creatinine Ratio 11.7 (12.0-20.0); Calcium, Blood 8.3 mg/dL (8.5-10.1); Creatinine, Blood 1.03 mg/dL (0.60-1.20); Globulin, Blood 3.6 g/dL (2.2-4.0); Magnesium, Blood 1.8 mg/dL (1.6-2.4); Potassium, Blood 3.5 mmol/L (3.5-5.5); Total Protein, Blood 5.6 g/dL (6.4-8.2)
--- NOTE | 2022-07-01 17:21 | NUR ---
STUDENT NURSE SHIFT SUMMARY NO EVENTS DURING SHIFT. PATIENT ALERT BUT CONFUSED. NOT ORIENTED TO PLACE, TIME, SITUATION. VITALS REVIEWED. NO REPORT OF PAIN, SOB, NAUSEA OR VOMITING. PATIENT TOLERATED ORAL MEDICATIONS WELL. OSTOMY IN PLACE ON RIGHT SIDE OF ABDOMEN. STOMA PINK. CALL LIGHT IN REACH. BED IN LOCKED AND LOW POSITION.
--- NOTE | 2022-07-02 01:08 | NUR ---
02 PLACES AT 2350 FOR INTERMITTANT SATURATIONS IN THE HIGH 70-LOW 80'S RANGE ON CONTINUOUS 02 MONITOR. PATIENT AGAIN REFUSED CPAP TONIGHT.
[2022-07-02 05:00] LABS: BASOPHILS ABSOLUTE AUTO 0.03 K/mm3 (0.00-0.23); BASOPHILS PERCENT AUTO 1 % (0-2); EOSINOPHILS ABSOLUTE AUTO 0.32 K/mm3 (0.00-0.68); EOSINOPHILS PERCENT AUTO 8 % (0-6); Hematocrit 24.9 % (37.0-53.0); Hemoglobin 8.4 g/dL (13.5-17.5); IMMATURE GRAN ABSOLUTE AUTO 0.06 K/mm3 (0.00-0.10); IMMATURE GRAN PERCENT AUTO 1 % (0-1); LYMPHOCYTES ABSOLUTE AUTO 0.91 K/mm3 (0.84-5.20); LYMPHOCYTES PERCENT AUTO 22 % (21-46); MONOCYTES ABSOLUTE AUTO 0.42 K/mm3 (0.16-1.47); MONOCYTES PERCENT AUTO 10 % (4-13); Mean Corpuscular HGB 32.8 pg (26.0-34.0); Mean Corpuscular HGB Conc 33.7 g/dL (31.5-36.5); Mean Corpuscular Volume 97 fL (80-100); Mean Platelet Volume 11.3 fL (9.1-12.4); NEUTROPHILS ABSOLUTE AUTO 2.43 K/mm3 (1.96-9.15); NEUTROPHILS PERCENT AUTO 58 % (41-73); Platelet Count 103 K/mm3 (150-400); RDW Coefficient Variation 15.9 % (11.7-14.2); RDW Standard Deviation 56.1 fL (35.1-46.3); Red Blood Cell Count 2.56 M/mm3 (4.30-5.90); White Blood Cell Count 4.17 K/mm3 (4.00-11.30)
--- NOTE | 2022-07-02 06:39 | NUR ---
PHUC SLEPT WELL OVERNIGHT WAKING TWICE TO GET OOB AND AMBULATE TO THE BATHROOM. RIGHT UPPER ARM DRESSING WAS CHANGED AROUND 0400 WHEN IT BECAME SATURATED AND BEGAN TO BLEED THROUGH THE DRESSING WHICH WERE NO COMPLAINTS OF PAIN OR DISCOMFORT OVERNIGHT. PATIENT LEFT ILIOSTOMY ALONE THROUGHOUT THE SHIFT. BLOOD PRESSURES WERE ELEVATED OVERNIGHT, BUT SPOT CHECKS REVEALED THEY WOULD DROP AFTER HE WAS BACK IN BED FOR 15-20 MINUTES.
[2022-07-02] MEDS ORDERED: FLUC200 PO (11:18)
[2022-07-02 12:04] LABS: Influenza A, PCR NEGATIVE (NEGATIVE); Influenza B, PCR NEGATIVE (NEGATIVE); Resp Syncytial Virus, PCR NEGATIVE (NEGATIVE)
[2022-07-02 12:18] LABS: SARS-Cov-2 (COVID-19) PCR, MMC POSITIVE (NEGATIVE)
--- NOTE | 2022-07-02 16:23 | NUR ---
SHIFT SUMMARY PATIENT IS ALERT BUT CONFUSED. PATIENT HAS BEEN RESTING MOST OF SHIFT. BP WAS ELEVATED IN BEGINNING OF SHIFT AND MEDICATED PER NEW ORDER. PATIENT WAS SUPPOSED TO DISCHARGE TO SNF TODAY BUT NOSE SWAB CAME BACK POSITIVE FOR COVID. NO OTHER ACUTE EVENTS THIS SHIFT. VITAL SIGNS REVIEWED. PATIENT HAS NOT COMPLAINED OF PAIN, NAUSEA, SOB OR VOMITTING THIS SHIFT. BED IN LOCKED AND LOWEST POSITION. CALL LIGHT IN PLACE. WILL MONITOR UNTIL SHIFT CHANGE.
[2022-07-02 21:31] LABS: Source, Urine Clean Catch
[2022-07-02 21:33] LABS: Bilirubin, Urine Neg (Neg); Blood, Urine 2+ (Neg); Glucose Qualitative, Urine 1+ (Neg); Ketones, Urine 1+ (Neg); Leukocyte Esterase, Urine 3+ (Neg); Nitrite, Urine Neg (Neg); Protein, Urine 2+ (Neg); Specific Gravity, Urine 1.015 (1.003-1.022); Urobilinogen, Urine NORM (Normal)
[2022-07-02 21:38] LABS: Appearance, Urine Cloudy (Clear); Color, Urine Yellow (P-Yellow)
[2022-07-02 21:39] LABS: Amorphous Light (0-Heavy); Bacteria Many /hpf; Granular Casts 25-50 /lpf (0); Squamous Epithelial Cells Few /hpf (Few); White Blood Cells, Urine TNTC /hpf (0-5)
[2022-07-03 05:48] LABS: Hematocrit 24.7 % (37.0-53.0); Hemoglobin 8.4 g/dL (13.5-17.5); Mean Corpuscular HGB 32.6 pg (26.0-34.0); Mean Corpuscular Volume 96 fL (80-100); Mean Platelet Volume 11.4 fL (9.1-12.4); Platelet Count 121 K/mm3 (150-400); RDW Standard Deviation 55.9 fL (35.1-46.3); Red Blood Cell Count 2.58 M/mm3 (4.30-5.90); White Blood Cell Count 3.81 K/mm3 (4.00-11.30)
[2022-07-03 06:10] LABS: Albumin/Globulin Ratio 0.6 (0.8-1.8); Bilirubin, Total 0.2 mg/dL (0.1-1.0); Bun/Creatinine Ratio 9.8 (12.0-20.0); Calcium, Blood 8.5 mg/dL (8.5-10.1); Creatinine, Blood 1.43 mg/dL (0.60-1.20); Globulin, Blood 3.5 g/dL (2.2-4.0); Potassium, Blood 3.1 mmol/L (3.5-5.5); Total Protein, Blood 5.5 g/dL (6.4-8.2)
[2022-07-03 07:02] LABS: Stool Occult Bld Immuno 1 Negative (NEGATIVE)
--- NOTE | 2022-07-03 17:24 | NUR ---
Shift Summary A/Ox3, pleasant. Legally blind. Following directions well. 1p SBA with GB and FWW to bathroom. Up in chair for lunch. Denies pain. L/S coarse crackles. On RA with sats > 94%. No dyspnea with exertion. Good appetite with set up for meals. No acute complaints.
[2022-07-04 06:54] LABS: BASOPHILS ABSOLUTE AUTO 0.01 K/mm3 (0.00-0.23); BASOPHILS PERCENT AUTO 0 % (0-2); EOSINOPHILS PERCENT AUTO 0 % (0-6); Hematocrit 23.5 % (37.0-53.0); Hemoglobin 8.1 g/dL (13.5-17.5); IMMATURE GRAN ABSOLUTE AUTO 0.12 K/mm3 (0.00-0.10); IMMATURE GRAN PERCENT AUTO 5 % (0-1); LYMPHOCYTES PERCENT AUTO 29 % (21-46); MONOCYTES ABSOLUTE AUTO 0.15 K/mm3 (0.16-1.47); MONOCYTES PERCENT AUTO 6 % (4-13); Mean Corpuscular HGB 32.9 pg (26.0-34.0); Mean Corpuscular HGB Conc 34.5 g/dL (31.5-36.5); Mean Corpuscular Volume 96 fL (80-100); Mean Platelet Volume 11.3 fL (9.1-12.4); NEUTROPHILS ABSOLUTE AUTO 1.48 K/mm3 (1.96-9.15); NEUTROPHILS PERCENT AUTO 60 % (41-73); Platelet Count 139 K/mm3 (150-400); RDW Coefficient Variation 16.2 % (11.7-14.2); RDW Standard Deviation 56.1 fL (35.1-46.3); Red Blood Cell Count 2.46 M/mm3 (4.30-5.90); White Blood Cell Count 2.46 K/mm3 (4.00-11.30)
[2022-07-04 07:12] LABS: Bun/Creatinine Ratio 11.3 (12.0-20.0); Calcium, Blood 8.9 mg/dL (8.5-10.1); Creatinine, Blood 1.5 mg/dL (0.60-1.20)
--- NOTE | 2022-07-04 14:02 | NUR ---
PT WORKED WITH PHYSICAL THERAPY. HE IS ON 2LPM O2 CONTINUOUSLY, AND WILL BECOME SOB WHEN AMBULATING FROM BED TO BATHROOM. PER PT REPORT, HIS BALANCE IS GOOD, SBA FOR ASSISTANCE WITH OXYGEN TUBING AND SAFETY IN THE ROOM.
--- NOTE | 2022-07-04 19:44 | NUR ---
SHIFT SUMMARY BETH IS IN ISOLATION FOR COVID/PNA, AND A UTI. HE IS ALERT TO PERSON AND PLACE ONLY, NOT TIME OR SITUATION. BED ALARM AND CHAIR ALARM ON FOR SAFETY. 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 LEGALLY BLIND. ONE PERSON ASSIST TO THE TOILET. H/O FREQUENT ADMISSIONS SINCE 05/2022, FOUR ADMISSIONS. PLAN IS TO POSSIBLY DISCHARGE TO SNF. ROOM AIR. SALINE LOCKED.
--- NOTE | 2022-07-05 04:49 | NUR ---
SUMMARY: PT A/O TO SELF AND PLACE BUT IS FORGETFULL TO EVENT. HE'S BLIND AND REQUIRES 1PA W/FWW BUT REPOSITIONS SELF IN BED. PT USES URINAL AD BASILIO AND HAS ILEOSTOMY THAT REQUIRES FREQ BURPING D/T LARGE AMT OF GAS. LIQUID BROWN/GREEN OUTPUT OBSERVED. HE REMAINS IN ENHANCED ISO FOR COVID PNM BUT SPO2 IS WNL ON RA AND NO S/S RESP DISTRESS OBSERVED. NO ACUTE CHANGES, VSS/AFEBRILE. PLAN IS FOR POSSIBLE D/C TO SNF. WCTM AND REPORT TO DAY RN.
[2022-07-05 06:33] LABS: BASOPHILS PERCENT AUTO 0 % (0-2); EOSINOPHILS ABSOLUTE AUTO 0.01 K/mm3 (0.00-0.68); EOSINOPHILS PERCENT AUTO 0 % (0-6); Hematocrit 24.1 % (37.0-53.0); Hemoglobin 8.3 g/dL (13.5-17.5); IMMATURE GRAN ABSOLUTE AUTO 0.06 K/mm3 (0.00-0.10); IMMATURE GRAN PERCENT AUTO 2 % (0-1); LYMPHOCYTES ABSOLUTE AUTO 1.01 K/mm3 (0.84-5.20); LYMPHOCYTES PERCENT AUTO 27 % (21-46); MONOCYTES ABSOLUTE AUTO 0.41 K/mm3 (0.16-1.47); MONOCYTES PERCENT AUTO 11 % (4-13); Mean Corpuscular HGB 33.2 pg (26.0-34.0); Mean Corpuscular HGB Conc 34.4 g/dL (31.5-36.5); Mean Corpuscular Volume 96 fL (80-100); Mean Platelet Volume 10.9 fL (9.1-12.4); NEUTROPHILS ABSOLUTE AUTO 2.24 K/mm3 (1.96-9.15); NEUTROPHILS PERCENT AUTO 60 % (41-73); Platelet Count 165 K/mm3 (150-400); RDW Coefficient Variation 16.4 % (11.7-14.2); RDW Standard Deviation 57.5 fL (35.1-46.3); White Blood Cell Count 3.73 K/mm3 (4.00-11.30)
[2022-07-05 06:57] LABS: Albumin, Blood 2.3 g/dL (3.4-5.0); Anion Gap 6 mmol/L (6-16); Blood Urea Nitrogen 18 mg/dL (8-24); Bun/Creatinine Ratio 11.8 (12.0-20.0); CO2, Blood 24 mmol/L (21-32); Calcium, Blood 8.7 mg/dL (8.5-10.1); Chloride, Blood 111 mmol/L (98-108); Creatinine, Blood 1.52 mg/dL (0.60-1.20); Glomerular Filtration Rate 45 (60-); Glucose, Blood 91 mg/dL (70-99); Phosphorus, Blood 3.1 mg/dL (2.5-4.9); Potassium, Blood 3.7 mmol/L (3.5-5.5); Sodium, Blood 141 mmol/L (136-145)
--- NOTE | 2022-07-05 18:36 | NUR ---
SHIFT SUMMARY PT AxOx2-3 WITH INTERMITTENT CONFUSION OR FORGETFULNESS. PT'S DAUGHTER, JASMIN IN ROOM THIS AM, UPDATED ON PLAN OF CARE. PT DENIED SOB OR DYSPNEA THIS SHIFT. NOTED THAT PT HAD OCCASIONAL NON PRODUCTIVE COUGHING, BUT PT DENIED COUGH SUPPRESSANTS WHEN OFFERED. PT DENIED PAIN THIS SHIFT. PT APPEARS TO HAVE RESTED COMFORTABLY FOR DURATION OF DAY SHIFT. VITALS REVIEWED. CURRENT PLAN IS PENDING DC TO SNF. PT DENIES ANY NEEDS AT THIS TIME.
[2022-07-06 06:27] LABS: BASOPHILS PERCENT AUTO 0 % (0-2); EOSINOPHILS ABSOLUTE AUTO 0.12 K/mm3 (0.00-0.68); EOSINOPHILS PERCENT AUTO 4 % (0-6); Hemoglobin 8.1 g/dL (13.5-17.5); IMMATURE GRAN ABSOLUTE AUTO 0.07 K/mm3 (0.00-0.10); IMMATURE GRAN PERCENT AUTO 3 % (0-1); LYMPHOCYTES PERCENT AUTO 36 % (21-46); MONOCYTES ABSOLUTE AUTO 0.39 K/mm3 (0.16-1.47); MONOCYTES PERCENT AUTO 14 % (4-13); Mean Corpuscular HGB 32.7 pg (26.0-34.0); Mean Corpuscular HGB Conc 33.8 g/dL (31.5-36.5); Mean Corpuscular Volume 97 fL (80-100); Mean Platelet Volume 10.4 fL (9.1-12.4); NEUTROPHILS ABSOLUTE AUTO 1.18 K/mm3 (1.96-9.15); NEUTROPHILS PERCENT AUTO 43 % (41-73); Platelet Count 170 K/mm3 (150-400); RDW Coefficient Variation 16.6 % (11.7-14.2); RDW Standard Deviation 57.7 fL (35.1-46.3); Red Blood Cell Count 2.48 M/mm3 (4.30-5.90); White Blood Cell Count 2.76 K/mm3 (4.00-11.30)
[2022-07-06 07:02] LABS: Albumin, Blood 2.2 g/dL (3.4-5.0); Anion Gap 6 mmol/L (6-16); Blood Urea Nitrogen 18 mg/dL (8-24); Bun/Creatinine Ratio 10.3 (12.0-20.0); CO2, Blood 25 mmol/L (21-32); Calcium, Blood 8.8 mg/dL (8.5-10.1); Chloride, Blood 110 mmol/L (98-108); Creatinine, Blood 1.75 mg/dL (0.60-1.20); Glomerular Filtration Rate 38 (60-); Glucose, Blood 89 mg/dL (70-99); Phosphorus, Blood 3.4 mg/dL (2.5-4.9); Potassium, Blood 3.5 mmol/L (3.5-5.5); Sodium, Blood 141 mmol/L (136-145)
--- NOTE | 2022-07-06 18:17 | NUR ---
END OF SHIFT SUMMARY: PATIENT DENIES PAIN OR SHORTNESS OF BREATH THROUGHOUT SHIFT. PATIENT UP TO THE CHAIR FOR BREAKFAST AND DINNER. PATIENT REPORTS LACK OF APPETITE AND THAT HE ISN'T FEELING WELL TODAY. PATIENT DID DRINK HIS ENSURE. PATIENT DENIES DIZZINESS WITH STANDING. PATIENT UP WITH ONE WITH MIN-MOD ASSIST. PATIENT'S DAUGHTER VISITED THE PATIENT THIS MORNING. SHE REPORTS THAT SHE WOULD LIKE PATIENT TO DISCHARGE TO WHERE EVER IS BEST FOR THE PATIENT. REPORTED TO RN THAT THE PATIENT HAS HALLUCINATIONS ABOUT PEOPLE BEING OUTSIDE OF HIS WINDOW. THIS WAS NOT NOTICED WHEN IN THE ROOM. PATIENT HAD A HEART RATE IN THE 50'S TODAY. DISCUSSED WITH DR. BROWNE. NEW ORDERS.
--- NOTE | 2022-07-07 05:48 | NUR ---
SHIFT SUMMARY A&O X 4- REPORT THAT PT IMPULSIVE AND WILL STAND TO SIDE OF BED TO USE URINAL- PT USED URINAL IN BED- NO ATTEMPTS TO GET OUT OF BED IN NIGHT DROPLET PRECUATIONS BED ALARM ON SENSITIVE SETTING- PT HAS ESTABLISHED ILOSTOMY- BURPED OFTEN T/O NIGHT- PT REPORTS NOT MANAGING SELF - MIDLINE TO LEFT LOWER ARM
[2022-07-07 07:36] LABS: BASOPHILS ABSOLUTE AUTO 0.01 K/mm3 (0.00-0.23); BASOPHILS PERCENT AUTO 0 % (0-2); EOSINOPHILS ABSOLUTE AUTO 0.21 K/mm3 (0.00-0.68); EOSINOPHILS PERCENT AUTO 7 % (0-6); Hematocrit 24.7 % (37.0-53.0); Hemoglobin 8.4 g/dL (13.5-17.5); IMMATURE GRAN ABSOLUTE AUTO 0.06 K/mm3 (0.00-0.10); IMMATURE GRAN PERCENT AUTO 2 % (0-1); LYMPHOCYTES PERCENT AUTO 28 % (21-46); MONOCYTES ABSOLUTE AUTO 0.43 K/mm3 (0.16-1.47); MONOCYTES PERCENT AUTO 13 % (4-13); Mean Corpuscular HGB 32.8 pg (26.0-34.0); Mean Corpuscular Volume 97 fL (80-100); Mean Platelet Volume 10.9 fL (9.1-12.4); NEUTROPHILS PERCENT AUTO 50 % (41-73); Platelet Count 179 K/mm3 (150-400); RDW Standard Deviation 56.7 fL (35.1-46.3); Red Blood Cell Count 2.56 M/mm3 (4.30-5.90); White Blood Cell Count 3.21 K/mm3 (4.00-11.30)
[2022-07-07 07:57] LABS: Albumin, Blood 2.3 g/dL (3.4-5.0); Anion Gap 8 mmol/L (6-16); Blood Urea Nitrogen 21 mg/dL (8-24); Bun/Creatinine Ratio 12.5 (12.0-20.0); CO2, Blood 24 mmol/L (21-32); Chloride, Blood 108 mmol/L (98-108); Creatinine, Blood 1.68 mg/dL (0.60-1.20); Glomerular Filtration Rate 40 (60-); Glucose, Blood 85 mg/dL (70-99); Phosphorus, Blood 3.2 mg/dL (2.5-4.9); Potassium, Blood 3.5 mmol/L (3.5-5.5); Sodium, Blood 140 mmol/L (136-145)
--- NOTE | 2022-07-07 18:25 | NUR ---
SHIFT SUMMARY PT UP IN CHAIR FOR EACH MEAL BUT DIDN'T EAT MUCH WITH ANY MEAL. STATES HE FEELS WEAK AND DOESN'T WANT TO DO MUCH. REPORTS BEING LEGALLY BLIND AND UNABLE TO SEE MUCH. ABLE TO CARRY ON A LONG CONVERSATION AND FOLLOW ALONG WITH NO PROBLEM. DAUGHTER AT BEDSIDE THIS AFTERNOON WELL SON.
[2022-07-08 04:44] LABS: BASOPHILS ABSOLUTE AUTO 0.01 K/mm3 (0.00-0.23); BASOPHILS PERCENT AUTO 0 % (0-2); EOSINOPHILS ABSOLUTE AUTO 0.28 K/mm3 (0.00-0.68); EOSINOPHILS PERCENT AUTO 8 % (0-6); Hematocrit 25.6 % (37.0-53.0); Hemoglobin 8.9 g/dL (13.5-17.5); IMMATURE GRAN ABSOLUTE AUTO 0.08 K/mm3 (0.00-0.10); IMMATURE GRAN PERCENT AUTO 2 % (0-1); LYMPHOCYTES PERCENT AUTO 25 % (21-46); MONOCYTES ABSOLUTE AUTO 0.41 K/mm3 (0.16-1.47); MONOCYTES PERCENT AUTO 12 % (4-13); Mean Corpuscular HGB 32.6 pg (26.0-34.0); Mean Corpuscular HGB Conc 34.8 g/dL (31.5-36.5); Mean Corpuscular Volume 94 fL (80-100); Mean Platelet Volume 10.6 fL (9.1-12.4); NEUTROPHILS PERCENT AUTO 53 % (41-73); Platelet Count 175 K/mm3 (150-400); RDW Standard Deviation 54.8 fL (35.1-46.3); Red Blood Cell Count 2.73 M/mm3 (4.30-5.90); White Blood Cell Count 3.58 K/mm3 (4.00-11.30)
--- NOTE | 2022-07-08 05:07 | NUR ---
SHIFT SUMMARY PT A&OX 3- PT UP TO CHAIR AT BEGINNING OF SHIFT FINISHING DINNER- PT ATE A FEW BITES AND REPORTS HAVING DECREASED APPETITIE- PT STOOD AT BEDSIDE AND USED URINAL WITHOUT PROBLEMS- DUMPED AND BURPED ILESTOMY BAG MULTIPLE TIMES IN THE NIGHT- CALL LIGHT WITHIN REACH- BED ALARM IN PLACE
[2022-07-08] MEDS ORDERED: AMLO10 PO (11:25)
--- NOTE | 2022-07-08 13:11 | NUR ---
DISCHARGE INSTRUCTIONS COMPLETED AND DISCUSSED WITH PT EXPRESSING UNDERSTANDING. SCRIPTS FAXED TO [facility]. TO [facility] VIA W/C.
== END 2022-07-08 12:10 | disposition home health service (06) | DRG 91 ==
LOC: ER 17:57 → ICUW 21:06 → MEDS 21:06 → ICUW 22:00 → MEDS 06-29 17:30
PROVIDERS: Family Medicine; Hospitalist; Student in an Organized Health Care Education/Training Program; ADMIT Internal Medicine
PROC: 30233N1 Transfusion of Nonautologous Red Blood Cells into Peripheral Vein, Percutaneous Approach (ICD-10-PCS; principal; 2022-06-25)
PROC: 02HV33Z Insertion of Infusion Device into Superior Vena Cava, Percutaneous Approach (ICD-10-PCS; 2022-06-25)
PROC: 3E033XZ Introduction of Vasopressor into Peripheral Vein, Percutaneous Approach (ICD-10-PCS; 2022-06-25)
PROC: 5A09357 Assistance with Respiratory Ventilation, Less than 24 Consecutive Hours, Continuous Positive Airway Pressure (ICD-10-PCS; 2022-06-25)
PROC: B548ZZA Ultrasonography of Superior Vena Cava, Guidance (ICD-10-PCS; 2022-06-25)
PROC: XW033E5 Introduction of Remdesivir Anti-infective into Peripheral Vein, Percutaneous Approach, New Technology Group 5 (ICD-10-PCS; 2022-07-02)
PROC: 8E0ZXY6 Isolation (ICD-10-PCS; 2022-07-02)
PROC: 3E0DX3Z Introduction of Anti-inflammatory into Mouth and Pharynx, External Approach (ICD-10-PCS; 2022-07-03)
DX: G92.8 Other toxic encephalopathy (principal); J96.01 Acute respiratory failure with hypoxia; U07.1 COVID-19; R57.1 Hypovolemic shock; N17.9 Acute kidney failure, unspecified; I13.0 Hypertensive heart and chronic kidney disease with heart failure and stage 1 through stage 4 chronic kidney disease, or unspecified chronic kidney disease; F05 Delirium due to known physiological condition; B37.49 Other urogenital candidiasis; Z66 Do not resuscitate; Z51.5 Encounter for palliative care; N18.30 Chronic kidney disease, stage 3 unspecified; D63.1 Anemia in chronic kidney disease; E87.6 Hypokalemia; E83.42 Hypomagnesemia; B96.20 Unspecified Escherichia coli [E. coli] as the cause of diseases classified elsewhere; B95.61 Methicillin susceptible Staphylococcus aureus infection as the cause of diseases classified elsewhere; I50.9 Heart failure, unspecified; I48.0 Paroxysmal atrial fibrillation; N40.0 Benign prostatic hyperplasia without lower urinary tract symptoms; E86.9 Volume depletion, unspecified; H35.30 Unspecified macular degeneration; K40.20 Bilateral inguinal hernia, without obstruction or gangrene, not specified as recurrent; H40.9 Unspecified glaucoma; M10.9 Gout, unspecified; K21.9 Gastro-esophageal reflux disease without esophagitis; E78.5 Hyperlipidemia, unspecified; R74.8 Abnormal levels of other serum enzymes; E88.09 Other disorders of plasma-protein metabolism, not elsewhere classified; Z92.3 Personal history of irradiation; Z79.899 Other long term (current) drug therapy; Z85.038 Personal history of other malignant neoplasm of large intestine; Z90.49 Acquired absence of other specified parts of digestive tract; Z93.2 Ileostomy status; Z85.46 Personal history of malignant neoplasm of prostate; Z98.890 Other specified postprocedural states; Z98.52 Vasectomy status; Z87.891 Personal history of nicotine dependence
CPT/HCPCS: 0241U; 36415; 36430; 36556; 36600; 51702; 70450; 71045; 74177; 80048; 80053; 80069; 80202; 81001; 82274; 82550; 82565; 82607; 82728; 82746; 82803; 83540; 83550; 83605; 83690; 83735; 83880; 84132; 84145; 84484; 85014; 85018; 85025; 85027; 85045; 86850; 86900; 86901; 86920; 87040; 87070; 87077; 87086; 87103; 87147; 87186; 87205; 92526; 92610; 93005; 93010; 93306; 94660; 94762; 96365-59; 96366-59; 96368; 97110; 97116; 97162; 97530; 99291-25; 99292; A9270; C1751; J0248; J0360; J0461; J0692; J1650; J2248; J3370; J3475; J3480; J7030; J7050; J7120; P9016; P9047; Q9967

== ENCOUNTER 2022-07-12 10:05 | Inpatient (IN) | payer OTHER ==
[~2022-07-12] VITALS: Ht 170.2 cm; Wt 73.3 kg
[~2022-07-12 10:05] MED LIST changes: +ALLO300 PO; +AMLO10 PO; +LACT PO; +NIFE60ER PO; +TIMO.25OPS BOTHEYES
[2022-07-12 11:58] LABS: BASOPHILS ABSOLUTE AUTO 0.02 K/mm3 (0.00-0.23); BASOPHILS PERCENT AUTO 0 % (0-2); EOSINOPHILS PERCENT AUTO 2 % (0-6); Hematocrit 29.3 % (37.0-53.0); Hemoglobin 10.3 g/dL (13.5-17.5); IMMATURE GRAN PERCENT AUTO 1 % (0-1); LYMPHOCYTES ABSOLUTE AUTO 1.79 K/mm3 (0.84-5.20); LYMPHOCYTES PERCENT AUTO 21 % (21-46); MONOCYTES ABSOLUTE AUTO 0.74 K/mm3 (0.16-1.47); MONOCYTES PERCENT AUTO 9 % (4-13); Mean Corpuscular HGB 32.7 pg (26.0-34.0); Mean Corpuscular HGB Conc 35.2 g/dL (31.5-36.5); Mean Corpuscular Volume 93 fL (80-100); Mean Platelet Volume 11.7 fL (9.1-12.4); NEUTROPHILS ABSOLUTE AUTO 5.51 K/mm3 (1.96-9.15); NEUTROPHILS PERCENT AUTO 66 % (41-73); Platelet Count 237 K/mm3 (150-400); RDW Coefficient Variation 16.4 % (11.7-14.2); RDW Standard Deviation 54.8 fL (35.1-46.3); Red Blood Cell Count 3.15 M/mm3 (4.30-5.90); White Blood Cell Count 8.36 K/mm3 (4.00-11.30)
[2022-07-12 12:19] LABS: Albumin/Globulin Ratio 0.6 (0.8-1.8); Bilirubin, Total 0.3 mg/dL (0.1-1.0); Bun/Creatinine Ratio 10.5 (12.0-20.0); Calcium, Blood 10.4 mg/dL (8.5-10.1); Creatinine, Blood 5.24 mg/dL (0.60-1.20); Globulin, Blood 5.1 g/dL (2.2-4.0); Potassium, Blood 5.3 mmol/L (3.5-5.5); Total Protein, Blood 8.1 g/dL (6.4-8.2)
[2022-07-12 15:49] LABS: PCO2 Arterial 23.4 mmHg (35-45); PO2 Arterial 66.7 mmHg (80-100)
[2022-07-12 15:52] LABS: pH Blood Arterial 7.26 (7.35-7.45)
[2022-07-12 16:26] LABS: Source, Urine Foley catheter
[2022-07-12 16:31] LABS: Appearance, Urine Hazy (Clear); Bilirubin, Urine Neg (Neg); Blood, Urine 4+ (Neg); Color, Urine Yellow (P-Yellow); Glucose Qualitative, Urine Neg (Neg); Ketones, Urine Neg (Neg); Leukocyte Esterase, Urine 2+ (Neg); Nitrite, Urine Neg (Neg); Protein, Urine 2+ (Neg); Urobilinogen, Urine NORM (Normal)
[2022-07-12 16:47] LABS: Bacteria Many /hpf; Granular Casts 0-2 /lpf (0); Hyaline Casts 0-2 /lpf (0-2); Renal Epithelial Rare /hpf (0-Rare); Squamous Epithelial Cells Few /hpf (Few); Transitional Epithelial Cells Few /hpf (0-Rare); White Blood Cells, Urine 25-50 /hpf (0-5)
[2022-07-12 20:07] LABS: Bun/Creatinine Ratio 10.4 (12.0-20.0); Creatinine, Blood 5.02 mg/dL (0.60-1.20); Potassium, Blood 5.2 mmol/L (3.5-5.5)
[2022-07-12 20:09] LABS: Calcium, Blood 8.3 mg/dL (8.5-10.1)
[2022-07-12 22:32] LABS: Bun/Creatinine Ratio 10.4 (12.0-20.0); Calcium, Blood 8.6 mg/dL (8.5-10.1); Creatinine, Blood 4.8 mg/dL (0.60-1.20); Potassium, Blood 5.1 mmol/L (3.5-5.5)
--- NOTE | 2022-07-13 01:00 | NUR ---
PER REPORT FROM ED RN: THE PT LIVES AT HOME WITH FAMILY. PT HAD A COLECTOMY APPROX 2 MONTHS AGO DUE TO COLON CANCER. ACCORDING TO THE FAMILY, THE PT HAS HAD MULTIPLE EPISODES OF AMS SINCE THEN. NORMALLY A/O X4 AND AMBULATES INDEPENDENTLY AT BASELINE. APPROX 2 DAYS AGO THE PT WAS DIAGNOSED WITH A FUNGAL UTI. PT UNABLE TO URINATE FOR THE PAST 2 DAYS.
--- NOTE | 2022-07-13 01:11 | NUR ---
CARE ASSUMPTION NOTE: PT ARRIVES TO PCU 10 FROM ED. PT ORIENTED TO SELF ONLY. PT NOT RESPONDING TO QUESTIONS APPROPRIATELY. PT CORE TEMP 87.0. PROVIDER NOTIFIED. ORDERS FOR BEAR HUGGER AND FLUIDS IN WARMER. PT ON 8L VIA OXYMIZER O2 SAT >92%. BP WITHIN NORMAL LIMITS. MEPILEX PLACED ON COCCYX DUE TO NON BLANCHABLE REDNESS. PCU AND ICU PULLING UNIT FLOORHAND NOTIFIED OF PT STATUS.
--- NOTE | 2022-07-13 05:22 | NUR ---
SHIFT SUMMARY: PT TEMPERATURE UP TO 94.0 FROM 87.0 WITH BEAR HUGGER AND FLUID WARMER. PT LR STILL INFUSING AT 150/HR WITH FLUID WARMER. PT ORIENTED TO SELF ONLY. HAS SOME MUMBLED SPEECH, TALKING TO SELF, AND HALLCUINATING. PT TITRATED DOWN FROM 8L ON OXYMIZER TO 2L. PT O2 SAT REMAINS >92%. PT HAS BEEN SINUS BRADYCARDIA THROUGHOUT SHIFT. BP AND MAP TRENDING UP. WILL CONTINUE TO MONITOR PT AND REPORT TO ONCOMING RN.
[2022-07-13 05:54] LABS: Hematocrit 24.1 % (37.0-53.0); Hemoglobin 8.3 g/dL (13.5-17.5); Mean Corpuscular HGB 32.2 pg (26.0-34.0); Mean Corpuscular HGB Conc 34.4 g/dL (31.5-36.5); Mean Corpuscular Volume 93 fL (80-100); Mean Platelet Volume 11.4 fL (9.1-12.4); Platelet Count 173 K/mm3 (150-400); RDW Coefficient Variation 16.1 % (11.7-14.2); RDW Standard Deviation 53.8 fL (35.1-46.3); Red Blood Cell Count 2.58 M/mm3 (4.30-5.90); White Blood Cell Count 3.06 K/mm3 (4.00-11.30)
[2022-07-13 06:25] LABS: Albumin, Blood 2.2 g/dL (3.4-5.0); Albumin/Globulin Ratio 0.6 (0.8-1.8); Bilirubin, Total 0.2 mg/dL (0.1-1.0); Bun/Creatinine Ratio 10.1 (12.0-20.0); Calcium, Blood 8.6 mg/dL (8.5-10.1); Creatinine, Blood 4.75 mg/dL (0.60-1.20); Globulin, Blood 3.7 g/dL (2.2-4.0); Potassium, Blood 4.5 mmol/L (3.5-5.5)
[2022-07-13 06:27] LABS: Total Protein, Blood 5.9 g/dL (6.4-8.2)
[2022-07-13 07:10] LABS: BAND PERCENT MAN 10 % (0-8); BASOPHILS PERCENT MAN 0 % (0-2); EOSINOPHILS ABSOLUTE MAN 0.03 K/mm3 (0.00-0.68); EOSINOPHILS PERCENT MAN 1 % (0-6); LYMPHOCYTES ABSOLUTE MAN 0.24 K/mm3 (0.84-5.20); LYMPHOCYTES PERCENT MAN 8 % (21-46); MONOCYTES ABSOLUTE MAN 0.18 K/mm3 (0.16-1.47); MONOCYTES PERCENT MAN 6 % (4-13); MYELOCYTE ABSOLUTE MAN 0.03 K/mm3 (0.00-0.00); MYELOCYTE PERCENT MAN 1 % (0-0); NEUTROPHILS ABSOLUTE MAN 2.57 K/mm3 (1.96-9.15); SEG NEUTROPHILS PERCENT MAN 74 % (41-73); TOTAL CELLS COUNTED 100
[2022-07-13 12:39] LABS: Stool Occult Blood Guaiac 1 Pos (Neg)
[2022-07-13 14:03] LABS: Adenovirus F 40/41 Not Detected (NOT DETECT); Astrovirus Not Detected (NOT DETECT); Campylobacter Sp Not Detected (NOT DETECT); Cryptosporidium Not Detected (NOT DETECT); Cyclospora Cayetanensis Not Detected (NOT DETECT); E. Coli O157 Not Detected (NOT DETECT); Entamoeba Histolytica Not Detected (NOT DETECT); Enteroaggregative E. coli-EAEC Not Detected (NOT DETECT); Enteropathogenic E. coli-EPEC Not Detected (NOT DETECT); Enterotoxigenic E. coli-ETEC Not Detected (NOT DETECT); Giardia Lamblia Not Detected (NOT DETECT); Norovirus GI/GII Not Detected (NOT DETECT); Plesiomonas Shigelloides Not Detected (NOT DETECT); Rotavirus A Not Detected (NOT DETECT); Salmonella Sp Not Detected (NOT DETECT); Sapovirus Not Detected (NOT DETECT); Shiga Toxin-prod E. coli-STEC Not Detected (NOT DETECT); Shigella/Enteroin E. coli-EIEC Not Detected (NOT DETECT); Vibrio Cholerae Not Detected (NOT DETECT); Vibrio Sp Not Detected (NOT DETECT); Yersinia Enterocolitica Not Detected (NOT DETECT)
--- NOTE | 2022-07-13 18:27 | NUR ---
PT SUMMARY: PT WAS A LITTLE SOMNOLENT AT THE BEGINNING OF THE SHIFT, PT THEN STARTED TO WAKE UP AFTER GICING PT A BED BATH THIS MORNING ILEOSTOMY WAS FULL AND LEAKED OUT ALL OVER THE BED. PT ABLE TO STATE NAME AND KNOWS HE'S IN [place] KNOWS THE YEAR AND PRESIDENT, BUT SOMETIMES CANT FOCUS ON A CONVERSATION STILL APPEARS LETHARGIC SOEMTIMES MUMBLES WHEN TALKING. ATE BREAKFAST AND LUNCH ABOUT 40% REFUSED DINNER, ENSURE WAS OFFERED PT ONLY TOOK FEW SIPS. ILEOSTOMY EMPTIED 4 TIMES FOR THE SHIFT HAS LIQUID GREEN OUTPUT, SENT TO LAB FOR O&P, CULTURE AND OCCULT, OCCULT CAME BACK POSITIVE. LEON DRIANED ABOUT 700MLS OF DARK AND CLOUDY URINE. VITALS HRR SR 80-90'S SATS ABOVE 93% ON RA, SBP 118-120'S, TEMP 97-99 BEAR HUGGER OFF SINCE THIS AM. DAUGHTER CAME IN TO VISIT WAS GIVEN AN UPDATE REGARDING PT'S PLAN OF CARE. NO OTHER ISSUES AT THIS TIME. PT WAS REPOSITIONED Q2 HRS FOR COMFORT AND PRESSURE SORE PREVENTION. LR RUNNING AT 150MLS/HR, CALL LIGHTS IN REACH. WILL REPORT TO ONCOMING SHIFT
--- NOTE | 2022-07-13 19:30 | NUR ---
CARE ASSUMPTION: PT ORIENTED TO SELF AND KNOWS HE IS IN [place], BUT UNABLE TO ANSWER ANY OTHER ORIENTATION QUESTIONS AT THIS TIME. PT SPEECH IS SENSICLE AT THIS TIME, BUT STILL HAVING MOMENTS OF MUMBLED NON-SENSICLE SPEECH. PT REMAINS SOMNOLENT, AWAKES EASILY, BUT FALLS BACK ASLEEP QUICKLY. PT REMAINS ON ROOM AIR, O2 SAT >92%. LUNGS ARE CLEAR BILATERALLY, BUT DIMINISHED IN THE BASES. PT SHOWS SR ON TELE. PT ILEOSTOMY DRAINING LIQUID GREEN STOOL, ALONG WITH MORE FORMED STOOL AROUND THE STOMA. BAG DRAINED AND STOMA IRRIGATED TO REMOVE ALL STOOL. PT TEMPERATURE WNL. PPP. PT REPOSITIONED AT THIS TIME. LR STILL INFUSING AT 150/HR.
[2022-07-14 05:07] LABS: BASOPHILS ABSOLUTE AUTO 0.03 K/mm3 (0.00-0.23); BASOPHILS PERCENT AUTO 0 % (0-2); EOSINOPHILS ABSOLUTE AUTO 0.23 K/mm3 (0.00-0.68); EOSINOPHILS PERCENT AUTO 3 % (0-6); Hematocrit 22.1 % (37.0-53.0); Hemoglobin 7.5 g/dL (13.5-17.5); IMMATURE GRAN ABSOLUTE AUTO 0.03 K/mm3 (0.00-0.10); IMMATURE GRAN PERCENT AUTO 0 % (0-1); LYMPHOCYTES ABSOLUTE AUTO 0.79 K/mm3 (0.84-5.20); LYMPHOCYTES PERCENT AUTO 12 % (21-46); MONOCYTES ABSOLUTE AUTO 0.49 K/mm3 (0.16-1.47); MONOCYTES PERCENT AUTO 7 % (4-13); Mean Corpuscular HGB 32.2 pg (26.0-34.0); Mean Corpuscular HGB Conc 33.9 g/dL (31.5-36.5); Mean Corpuscular Volume 95 fL (80-100); Mean Platelet Volume 11.3 fL (9.1-12.4); NEUTROPHILS ABSOLUTE AUTO 5.21 K/mm3 (1.96-9.15); NEUTROPHILS PERCENT AUTO 77 % (41-73); NRBC ABSOLUTE 0.02 K/mm3 (0.00-0.02); NRBC Auto 0.3 /100 WBC (0.0-0.2); Platelet Count 164 K/mm3 (150-400); RDW Coefficient Variation 17.2 % (11.7-14.2); RDW Standard Deviation 58.1 fL (35.1-46.3); Red Blood Cell Count 2.33 M/mm3 (4.30-5.90); White Blood Cell Count 6.78 K/mm3 (4.00-11.30)
[2022-07-14 05:43] LABS: Albumin, Blood 1.9 g/dL (3.4-5.0); Albumin/Globulin Ratio 0.5 (0.8-1.8); Bilirubin, Total 0.3 mg/dL (0.1-1.0); Bun/Creatinine Ratio 11.2 (12.0-20.0); Calcium, Blood 8.4 mg/dL (8.5-10.1); Globulin, Blood 3.5 g/dL (2.2-4.0); Potassium, Blood 4.5 mmol/L (3.5-5.5); Total Protein, Blood 5.4 g/dL (6.4-8.2)
--- NOTE | 2022-07-14 05:46 | NUR ---
SHIFT SUMMARY PT ALERT TO SELF. CONFUSED T/O SHIFT. BED ALARM IN PLACE. PT TURNED Q 2 HRS AND NEEDED. LEON PATENT AND DRAINING TO GRAVITY. HR STABLE. BP STABLE. NO CP OR PRESSURE REPORTED. OXYGEN SATURATION MAINTAINED ABOVE 92% ON RA. ILEOSTOMY DRAINING GREEN LIQUID STOOL. CALL LIGHT WITHIN REACH. WILL CONT TO MONITOR UNTIL REPORT GIVEN TO DAYSSHANELLE RN.
--- NOTE | 2022-07-14 12:35 | NUR ---
Spoke with Dr Bhatt yesterday and discussed case. Family may benefit from discussion to consider hospice. Pt resting in bed upon arrival. Pt is pleasantly confused, A&O to self and daughter only. Pt denies pain and dyspnea at this time. Spoke with Primary RN Carolyn and discussed case. Attempted to contact Pt's daughter Edna. Left message with request for a return phone call.
--- NOTE | 2022-07-14 16:06 | NUR ---
Received call back from daughter Edna. Provided update and reviewed plan of care. Engaged in therapeutic discussion regarding goals of care. Gently educated on disease process including trajectory. Discussed the option to consider hospice. Educated on hospice philosophy with V/U made by Edna. Edna expresses interest in hospice. She reports that she would like Pt to continue treatment until ready for D/C. Discussed hospice agencies to choose from. Edna reports plan to speak with family and will let this RN know preference for hospice agency. Spoke with Dr Bhatt and relayed family wishes. Palliative Care will remain available.
[2022-07-14 17:12] LABS: Hematocrit 22.2 % (37.0-53.0); Hemoglobin 7.8 g/dL (13.5-17.5)
--- NOTE | 2022-07-14 18:26 | NUR ---
PT SUMMARY: PT TRANSITIONED TO MEDICAL NO TELE. PT VITALS HAS BEEN STABLE. STILL REMAINS CONFUSED AND HALLUCINATING LIKE SEEING IN THE ROOM AND PADDLE OF WATER IN BED. PT TRYING TO GET OUT OF BED TWICE ASKING WHEN HE'S GOING HOME, PT CAN BE EASILY REDIRECETED. PT FEEDING SELF WITH NO ISSUES POOR APPETITE PT STATED HE GETS FULL EASILY BECAUSE OF ILEOSTOMY. BAG DRAINED COUPLE TIMES FOR THE SHIFT OUTPUT NOW YELLOW BROWN IN COLOR LOOSE IN CONSISTENCY NOW HAS SOME FORMED STOOL. LEON STILL DRAINING YELLOW URINE VIA GRAVITY, LR STILL RUNNNING AT 150MLS/HR. PT REPOSITIONED FOR COMFORT. DAUGHTER AND SON CAME IN TO VISIT AND CELESTE IN SOME SNACKS. NO OTHER CONCERNS AT THIS TIME, WILL REPORT TO ONCOMING SHIFT
[2022-07-14 21:27] LABS: Hematocrit 23.5 % (37.0-53.0); Hemoglobin 7.9 g/dL (13.5-17.5)
--- NOTE | 2022-07-14 22:47 | NUR ---
UPDATE AT THE START OF SHIFT WHEN I ENTERED THE PT'S ROOM THE PT WAS SITTING AT THE FOOT OF THE BED COVERED IN HIS OWN BLOOD AND PULLING AT HIS LEON CATH. THE FOOT OF THE BED AND THE FLOOR WERE ALSO COVERED IN THE PT'S OWN BLOOD. UPON ASSESSMENT THE PT HAD RIPPED APART HIS IV LINE ALLOWING BLOOD TO FLOW FREELY FROM HIS IV HUB. I ALERTED STAFF FOR ASSISTANCE AND CLOSED OF THE IV LINE TO STOP FURTHER BLEEDING. THE PT WAS ASSESSED FROM HEAD TO TOW TO ENSURE THE SOURCE OF THE BLOOD WELL TO EXAMINE THE PT FOR POSSIBLE INJURY. A BED BATH WAS PERFORMED WELL A FULL LINEN CHANGE TO REMOVED SOLIED LINENS. IV IS STILL PATENT AND FLUSHES WITHOUT DIFFICULTY. VSS. WAS NOTIFIED OF THIS EVENT AND A STAT H&H WAS ORDERED AND SHOWED Hgb OF 7.9. PT REPORTED LIGHTHEADNESS WHEN HE SITS UP AND GENERAL WEAKNESS. WILL CONTINUE TO MONITOR THE PT AND UPDATE PRN.
--- NOTE | 2022-07-15 05:28 | NUR ---
SHIFT SUMMARY PT IS A/Ox2 AND IS PLEASANTLY CONFUSED T/O MOST OF THE SHIFT. AT THE START OF SHIFT, PT HAD RIPPED APART HIS IV AND THEN LATER INTO THE SHIFT TORE A HOLE IN HIS ILLEOSTOMY. HE IS EASILY REDIRECTABLE HOWEVER. MAINTAINS SPO2 >94% ON RA WITH NO SOB OR DYSPNEA NOTED. CARDIAC OLSEN, PT HAS BEEN SR IN THE 60-70'S WITH NO CP OR PRESSURE REPORTED T/O THE SHIFT. BP STABLE. ILLEOSTOMY CONTINUES TO PRODUCE LIQUID/GREEN COLORED STOOL. LEON CATH PATENT AND DRAINING CLOUDY/YELLOW COLORED URINE TO GRAVITY. VSS, NADN T/O THE SHIFT
[2022-07-15 07:39] LABS: BASOPHILS ABSOLUTE AUTO 0.03 K/mm3 (0.00-0.23); BASOPHILS PERCENT AUTO 1 % (0-2); EOSINOPHILS ABSOLUTE AUTO 0.28 K/mm3 (0.00-0.68); EOSINOPHILS PERCENT AUTO 6 % (0-6); Hemoglobin 7.4 g/dL (13.5-17.5); IMMATURE GRAN ABSOLUTE AUTO 0.04 K/mm3 (0.00-0.10); IMMATURE GRAN PERCENT AUTO 1 % (0-1); LYMPHOCYTES ABSOLUTE AUTO 0.64 K/mm3 (0.84-5.20); LYMPHOCYTES PERCENT AUTO 14 % (21-46); MONOCYTES ABSOLUTE AUTO 0.44 K/mm3 (0.16-1.47); MONOCYTES PERCENT AUTO 10 % (4-13); Mean Corpuscular HGB 32.7 pg (26.0-34.0); Mean Corpuscular HGB Conc 33.6 g/dL (31.5-36.5); Mean Corpuscular Volume 97 fL (80-100); Mean Platelet Volume 10.9 fL (9.1-12.4); NEUTROPHILS ABSOLUTE AUTO 3.04 K/mm3 (1.96-9.15); NEUTROPHILS PERCENT AUTO 68 % (41-73); Platelet Count 161 K/mm3 (150-400); RDW Coefficient Variation 17.2 % (11.7-14.2); RDW Standard Deviation 60.1 fL (35.1-46.3); Red Blood Cell Count 2.26 M/mm3 (4.30-5.90); White Blood Cell Count 4.47 K/mm3 (4.00-11.30)
[2022-07-15 08:03] LABS: Albumin, Blood 1.9 g/dL (3.4-5.0); Albumin/Globulin Ratio 0.6 (0.8-1.8); Bilirubin, Total 0.3 mg/dL (0.1-1.0); Bun/Creatinine Ratio 11.1 (12.0-20.0); Calcium, Blood 8.1 mg/dL (8.5-10.1); Creatinine, Blood 3.52 mg/dL (0.60-1.20); Globulin, Blood 3.4 g/dL (2.2-4.0); Potassium, Blood 4.1 mmol/L (3.5-5.5); Total Protein, Blood 5.3 g/dL (6.4-8.2)
--- NOTE | 2022-07-15 12:51 | NUR ---
Brief supportive visit today. Pt resting in bed and remains moderately confused. Pt's daughter Edna at bedside. Engaged in therapeutic conversation regarding hospice choice. Edna reports [facility] as choice. Offered therapeutic listening and answered questions. Discussed potential plan to D/C home today. Provided choice letter [facility] Spoke with RN Dwayne Woo and discussed case. Chilo will fax signed MD hospice orders to [facility]. Palliative Care will remain available
--- NOTE | 2022-07-15 18:35 | NUR ---
SHIFT SUMMARY PT ORIENTED X2, NEEDING FREQUENT REORIENTATION TO HOSPITAL STAY/EVENTS. MUMBLES AND TALKS ABOUT UNRELATED SUBJECTS. EATING SNACKS LEFT AT BEDSIDE BY FAMILY BUT REFUSING MEALS. DENIES PAIN OR DISCOMFORT. MEDICAL, NO TELE, LEON CATHETER IN PLACE. SOME DEVIATION NOTED AT [place], LEON CARE COMPLETED AND STATLOCK ROTATED TO DIFFERENT SITE. ON RA. WILL PASS ON TO FELICIA RN
--- NOTE | 2022-07-16 06:16 | NUR ---
SHIFT SUMMARY PT IS A/Ox2 AND IS COOPERATIVE WITH CARE PROVIDE BY STAFF. PT CONTINUES TO BE PLEASANTLY CONFUSED WELL HALLUCINATING T/O THE NIGHT. HAS MAINTAINED SPO2 >90% ON RA WITH NO SIGNS OF SOB OR DYSPNEA NOTED AT REST. CONTINUES TO HAVE MOIST COUGH WITHOUT ANY SPUTUM PRODUCTION. CARDIAC OLSEN, PT IS MED TELE BUT HAS MAINTAINED A HR 50-70'S WITH NO CP OR PRESSURE REPORTED. ILLEOSTOMY CONTINUES TO PRODUCE GREEN/LIQUID STOOL. LEON CATH PATENT AND DRAINING CLOUDY/YELLOW URINE TO GRAVITY. AFTER SPEAKING WITH DAYSHIFT RN, PLAN OF CARE APPEARS TO BE POSSIBLE DC ON HOSPICE 07/16. NOVA VASQUEZ T/O THE SHIFT
--- NOTE | 2022-07-16 11:00 | NUR ---
DISCHARGE THIS RN ASSUMED CARE AT 0700. PATIENT IS ALERT AND ORIENTED TO SELF. PATIENT IS SLEEPY THIS AM, BUT WILL WAKE AND ANSWER QUESTIONS AND THEN FALL BACK ASLEEP. VSS. PATIENT MD IN TO SEE PATIENT THIS AM. SEE SHIFT ASSESSMENT FOR ASSESSMENT DETAILS. PATIENT BELONGINGS GATHERED AND WITH PATIENT WHEN PATIENT LEFT AR 1158. PATIENT CATHETER IN PLACE SINCE GOING HOME ON HOSPICE AND WAS PERFENCED TO KEEP IN. PATIENT SON TRELL UPDATED AND THIS RN CALLED MD TO UPDATE FAMILY THEY HAD QUESTIONS. PATIENT LEFT IN NO DISTRESS WITH DISCHARGE EDUCATION AND HOSPICE ORDERS. PATIENT LEFT VIA WHEELCHAIR WITH RIDE AND ALL BELONGINGS AND EDUCATION WITH PATIENT.
== END 2022-07-16 13:23 | disposition hospice, home (50) | DRG 871 ==
LOC: ER 10:05 → ERHOLD 16:14 → PCU 07-13 00:31
PROVIDERS: Emergency Medicine; Family Medicine; Student in an Organized Health Care Education/Training Program; ADMIT Hospitalist
PROC: 3E03329 Introduction of Other Anti-infective into Peripheral Vein, Percutaneous Approach (ICD-10-PCS; principal; 2022-07-12)
PROC: 5A09357 Assistance with Respiratory Ventilation, Less than 24 Consecutive Hours, Continuous Positive Airway Pressure (ICD-10-PCS; 2022-07-12)
DX: B37.7 Candidal sepsis (principal); G92.8 Other toxic encephalopathy; J96.01 Acute respiratory failure with hypoxia; N17.9 Acute kidney failure, unspecified; N39.0 Urinary tract infection, site not specified; E87.21 Acute metabolic acidosis; E87.3 Alkalosis; E87.20 Acidosis, unspecified; E87.1 Hypo-osmolality and hyponatremia; F05 Delirium due to known physiological condition; R65.20 Severe sepsis without septic shock; Z66 Do not resuscitate; Z51.5 Encounter for palliative care; I95.9 Hypotension, unspecified; H35.30 Unspecified macular degeneration; I10 Essential (primary) hypertension; E78.5 Hyperlipidemia, unspecified; E86.0 Dehydration; D63.8 Anemia in other chronic diseases classified elsewhere; N40.1 Benign prostatic hyperplasia with lower urinary tract symptoms; R33.8 Other retention of urine; H40.9 Unspecified glaucoma; M10.9 Gout, unspecified; K21.9 Gastro-esophageal reflux disease without esophagitis; D50.0 Iron deficiency anemia secondary to blood loss (chronic); K40.20 Bilateral inguinal hernia, without obstruction or gangrene, not specified as recurrent; Z85.46 Personal history of malignant neoplasm of prostate; Z85.038 Personal history of other malignant neoplasm of large intestine; Z90.49 Acquired absence of other specified parts of digestive tract; Z93.2 Ileostomy status; Z79.899 Other long term (current) drug therapy; Z92.3 Personal history of irradiation; Z98.890 Other specified postprocedural states; Z98.52 Vasectomy status; Z87.891 Personal history of nicotine dependence; Z87.19 Personal history of other diseases of the digestive system
CPT/HCPCS: 36415; 36600; 51702; 71046; 80048; 80053; 81001; 82140; 82272; 82803; 83605; 85007; 85014; 85018; 85025; 85027; 87015; 87040; 87045; 87046; 87086; 87177; 87205; 87209; 87507; 87899; 94660; 99285-25; A9270; J0696; J1644; J2248; J3370; J7030; J7120

== ENCOUNTER → 2023-02-08 | Outpatient (CLI) | payer OTHER ==
[2023-02-08 20:16] LABS: Albumin, Blood 2.9 g/dL (3.4-5.0); Albumin/Globulin Ratio 0.8 (0.8-1.8); Bilirubin, Total 0.2 mg/dL (0.1-1.0); Bun/Creatinine Ratio 14.2 (12.0-20.0); Calcium, Blood 8.3 mg/dL (8.5-10.1); Creatinine, Blood 2.18 mg/dL (0.60-1.20); Globulin, Blood 3.6 g/dL (2.2-4.0); Percent Saturation 43.4 % (20.0-50.0); Phosphorus, Blood 3.2 mg/dL (2.5-4.9); Potassium, Blood 5.8 mmol/L (3.5-5.5); Total Protein, Blood 6.5 g/dL (6.4-8.2)
== END ==
LOC: LAB SHORT 16:28 → LAB 16:28
PROVIDERS: Internal Medicine Hematology & Oncology
DX: D50.9 Iron deficiency anemia, unspecified (principal); E53.8 Deficiency of other specified B group vitamins
CPT/HCPCS: 80053; 82607; 82728; 82746; 83540; 83550; 84100

== ENCOUNTER 2023-02-22 02:04 | Inpatient (IN) | payer OTHER ==
[~2023-02-22] VITALS: Ht 170.2 cm; Wt 88.4 kg
[2023-02-22 02:28] LABS: BASOPHILS ABSOLUTE AUTO 0.04 K/mm3 (0.00-0.23); BASOPHILS PERCENT AUTO 0 % (0-2); EOSINOPHILS PERCENT AUTO 3 % (0-6); Hematocrit 26.4 % (37.0-53.0); Hemoglobin 8.8 g/dL (13.5-17.5); IMMATURE GRAN ABSOLUTE AUTO 0.06 K/mm3 (0.00-0.10); IMMATURE GRAN PERCENT AUTO 1 % (0-1); LYMPHOCYTES ABSOLUTE AUTO 0.26 K/mm3 (0.84-5.20); LYMPHOCYTES PERCENT AUTO 3 % (21-46); MONOCYTES ABSOLUTE AUTO 0.54 K/mm3 (0.16-1.47); MONOCYTES PERCENT AUTO 6 % (4-13); Mean Corpuscular HGB 35.9 pg (26.0-34.0); Mean Corpuscular HGB Conc 33.3 g/dL (31.5-36.5); Mean Corpuscular Volume 108 fL (80-100); Mean Platelet Volume 9.9 fL (9.1-12.4); NEUTROPHILS ABSOLUTE AUTO 7.87 K/mm3 (1.96-9.15); NEUTROPHILS PERCENT AUTO 87 % (41-73); NRBC ABSOLUTE 0.02 K/mm3 (0.00-0.02); NRBC Auto 0.2 /100 WBC (0.0-0.2); Platelet Count 201 K/mm3 (150-400); RDW Coefficient Variation 14.6 % (11.7-14.2); RDW Standard Deviation 56.5 fL (35.1-46.3); Red Blood Cell Count 2.45 M/mm3 (4.30-5.90); White Blood Cell Count 9.07 K/mm3 (4.00-11.30)
[2023-02-22 02:46] LABS: Albumin, Blood 2.9 g/dL (3.4-5.0); Albumin/Globulin Ratio 0.7 (0.8-1.8); Bilirubin, Total 0.4 mg/dL (0.1-1.0); Bun/Creatinine Ratio 12.7 (12.0-20.0); Calcium, Blood 8.9 mg/dL (8.5-10.1); Creatinine, Blood 2.12 mg/dL (0.60-1.20); Potassium, Blood 4.5 mmol/L (3.5-5.5); Total Protein, Blood 6.9 g/dL (6.4-8.2)
--- NOTE | 2023-02-22 09:15 | NUR ---
ARRIVAL PATIENT TO ROOM 219 VIA GURNEY, TRANSFERRED TO BED WITH SLIDER SHEET, TOLERATED WELL. PATIENT REPORTING PAIN TO RUQ, 6/10 AT THIS TIME. PLAN TO MEDICATE PER EMAR. ATTENDS SATURATE DIN URINE UPON ARRIVAL, EMILIA CARE PROVIDED AND NEW ATTENDS PLACED. URINAL ALSO AT BEDSIDE. OSTOMY BAG FULL OF STOOL & FLATUS, EMPTIED AND CLEANED AT THIS TIME. VSS ON RA, LUNGS CLEAR, BUT DIMINISHED IN BASES. HYPOACTIVE BOWEL TONES. PATIENT REPORTS NOT HAVING EATEN OR DRANK ANYTHING SINCE YESTERDAY. ORIENTED TO ROOM & CALL LIGHT, IN REACH. HOB ELEVATED, IN LOW POSITION.
[2023-02-22 09:20] VITALS: BP 157/70
--- NOTE | 2023-02-22 10:01 | NUR ---
CALL TO THIS RN NOTIFIED DR DSOUZA OF PATIENT ARIVAL TO ROOM 219. NOTIFIED MD THAT PATIENT HAS NO IV FLUIDS ORDERED AND TO REMAIN NPO UNTIL SURGERY. ALSO NOTIFIED DR DSOUZA OF PATIENTS BLOOD PRESSURE OF 157/70 AND HEART RATE OF 112 CURRENTLY & THAT PATIENT TAKES METOPROLOL AT HOME. NO ORDERS RECEIVED.
[2023-02-22 14:37] VITALS: BP 134/59
--- NOTE | 2023-02-22 15:34 | NUR ---
Pt. is awake in bed and welcomes my visit. Pt. displays evidence of bein gpleasantly confused. Pt. verbalizes that his issue is his Gall bladder and that he is waiting for a procedure. Listen with empathy and interest. Some level of rapport is established. Pt. displayed evidence of recognizing this logistics clerk after several minutes. Prayed with Pt. Ptr. verbalized gratitude for the spiritual care visit.
--- NOTE | 2023-02-22 15:53 | NUR ---
HIDA SCAN THIS RN CONTACTED [employer] REGARDING THE STAT HIDA SCAN ORDERED THIS AM AT 0810. NUCLEAR MED TECH STATED SHE SPOKE WITH THE ED RN THIS AM AFTER THE ORDER WAS PLACED AND INFORMED THE RN THAT THE SCAN WOULD NOT BE ABLE TO GET DONE UNTIL 1200 TOMORROW, 02/23. IT WAS REPORTED THAT THE ED RN "WOULD UPDATE THE ORDERING PROVIDER", ALTHOUGH PROVIDER WAS NOT AWARE AND HAS KEPT PATIENT NPO SINCE, EXPECTING THE SCAN. THIS RN NOTIFIED DR FITZGERALD AT THIS THAT SCAN WILL BE DONE TOMORROW 02/23/23 AT 1200. OR CASE CANCELLED FOR TODAY. PATIENT MAY EAT & DRINK UNTIL 0600 IN THE AM. NO PAINMEDICATIONS TO BE GIVEN AFTER 0600 ON 02/23.
--- NOTE | 2023-02-22 18:07 | NUR ---
SHIFT SUMMARY NO ACUTE CHANGES WITH PATIENT SINCE ARRIVAL TO FLOOR. MODERATE TO HIGH PAIN T/O SHIFT, MEDICATED PER EMAR WITH RELIEF. USING URINAL TO VOID, ATTENDS IN PLACE ALSO. IVFLUIDS & ABX PER EMAR. PATIENT WAS KEPT NPO D/T MISOCMMUNICATION PREVIOUSLY NOTED. PATIENT TOLERATING PO INTAKE AT THIS TIME ALTHOUGH ONLY HAS APPETITE FOR WATER & ENSURE. CALLS APPROPRIATELY, IN REACH. WILL REPORT TO ONCOMING RN AT 1900.
[2023-02-22 19:49] VITALS: BP 177/69
[2023-02-23] VITALS (11 sets, daily range): BP systolic 88–175; BP diastolic 50–77
--- NOTE | 2023-02-23 01:53 | NUR ---
CONDOM CATH PLACED PROVIDED PT W/ CONDOM CATH TO PREVENT SKIN BREAKDOWN AND ASSIST W/ INCONT
[2023-02-23 04:24] LABS: Hematocrit 24.3 % (37.0-53.0); Hemoglobin 7.9 g/dL (13.5-17.5); Mean Corpuscular HGB 35.1 pg (26.0-34.0); Mean Corpuscular HGB Conc 32.5 g/dL (31.5-36.5); Mean Corpuscular Volume 108 fL (80-100); Mean Platelet Volume 10.1 fL (9.1-12.4); Platelet Count 181 K/mm3 (150-400); RDW Standard Deviation 57.6 fL (35.1-46.3); Red Blood Cell Count 2.25 M/mm3 (4.30-5.90); White Blood Cell Count 11.44 K/mm3 (4.00-11.30)
[2023-02-23 04:48] LABS: Albumin, Blood 2.3 g/dL (3.4-5.0); Albumin/Globulin Ratio 0.6 (0.8-1.8); Bilirubin, Total 0.4 mg/dL (0.1-1.0); Bun/Creatinine Ratio 16.5 (12.0-20.0); Calcium, Blood 8.6 mg/dL (8.5-10.1); Creatinine, Blood 2.06 mg/dL (0.60-1.20); Globulin, Blood 3.6 g/dL (2.2-4.0); Potassium, Blood 5.3 mmol/L (3.5-5.5); Total Protein, Blood 5.9 g/dL (6.4-8.2)
--- NOTE | 2023-02-23 06:40 | NUR ---
SHIFT SUMMARY ER ADMIT FOR ACUTE CHOLECYSTITIS. NPO AWAITING HIDA SCAN TODAY SCHEDULED FOR NOON. ILEOSTOMY TO RUQ INTACT, DRAINING SOFT BROWN STOOL, GAS. PT MEDICATED 1X W/ FENTANYL FOR 8/10 PAIN. PT DENIES PAIN THIS A.M. PT INCONT W/ URINE AND ATTENDS IN PLACE. CONDOM CATH ATTEMPTED AND FAILED. PT VERY [place] AND LIMITED VISION. 2 PERSON ASSIST AT BASELINE, DAUGHTER PRIMARY CG AT HOME. CALL LIGHT IN REACH. REPORT GIVEN TO ONCOMING STAFF.
--- NOTE | 2023-02-23 18:14 | NUR ---
SHIFT SUMMARY: DR. TRENT READ PATIENTS [place] SCAN RESULTS AND HAS DETERMINED TO TAKE THE PATIENT TO THE OR IN A FEW MINUTES. PATIENT IS RESTING COMFORTABLY IN BED WITH CALL LIGHT IN REACH. DAUGHTER WAS NOTIFIED THAT THE SURGERY WILL BE HAPPENING TONIGHT AND THAT DR. TRENT WILL BE CALLING HER SHORTLY WITH MORE DETAILS.
--- NOTE | 2023-02-23 18:32 | NUR ---
PATIENT JUST LEFT FOR THE OR.
[2023-02-24] VITALS (34 sets, daily range): BP systolic 112–164; BP diastolic 50–103
--- NOTE | 2023-02-24 02:20 | NUR ---
ASSUMED CARE AT 2345 PT IN ICU FOR EXTENDED RECOVERY AND ORDERS PROVIDED TO KEEP HIM IN ICU D/T INCREASE IN O2 REQURIEMENTS. ULYSSES Trevizo RN, FROM OR AT BEDSIDE AND PROVIDED REPORT REGARDING LAP KEO. PT IS ORIENTED TO SELF ONLY, UNKNOWN DATE, LOCATION, AND SITUATION; CHALLENGING TO UNDERSTAND HIM RELATED TO MUMBLING. INCREASED NON-REBREATHER TO 15L TO KEEP SPO2 >90%; SWITCHED OVER TO HIGH FLOW NC FOR COMFORT; PRODUCTIVE WET, CONGESTED, WEAK COUGH NOTED. HR 60-80'S. SBP 110-140'S. RAFIA DRAIN IN PLACE WITH BILE/BLOOD COLOR OUTPUT; THREE INCISION SITES NOTED AND CLOSED WITH TISSUE ADHESIVE; NO DRAINAGE OUT OF INCISIONS; ILLISOSTOMY NOTED WITH MINIMAL OUTPUT. NO C/O PAIN. URINE INCONTINENCE NOTED. SEE SHIFT ASSESSMENT FOR FULL ASSESSMENT.
--- NOTE | 2023-02-24 02:30 | NUR ---
UPDATE CALL MADE TO DR BUCHANAN REGARDING PT PRODUCTIVE COUGH AND CONGESTED LUNG SOUNDS. NEW ORDERS PROVIDED FOR CHEST XRAY AND SPUTUM SAMPLE.
[2023-02-24 03:31] LABS: Hematocrit 33.3 % (37.0-53.0); Hemoglobin 10.9 g/dL (13.5-17.5); Mean Corpuscular HGB 33.1 pg (26.0-34.0); Mean Corpuscular HGB Conc 32.7 g/dL (31.5-36.5); Mean Platelet Volume 10.1 fL (9.1-12.4); Platelet Count 182 K/mm3 (150-400); RDW Coefficient Variation 19.5 % (11.7-14.2); RDW Standard Deviation 72.8 fL (35.1-46.3); Red Blood Cell Count 3.29 M/mm3 (4.30-5.90); White Blood Cell Count 11.82 K/mm3 (4.00-11.30)
[2023-02-24 03:40] LABS: Mean Corpuscular Volume 101 fL (80-100)
--- NOTE | 2023-02-24 03:40 | NUR ---
UPDATE CALL MADE TO DR BUCHANAN NOTIFYING HIM THAT THE CHEST XRAY WAS COMPLETED. NO NEW ORDERS PROVIDED.
[2023-02-24 03:48] LABS: Bun/Creatinine Ratio 17.5 (12.0-20.0); Calcium, Blood 8.5 mg/dL (8.5-10.1); Creatinine, Blood 2.06 mg/dL (0.60-1.20); Potassium, Blood 5.4 mmol/L (3.5-5.5)
--- NOTE | 2023-02-24 06:42 | NUR ---
END OF SHIFT SUMMARY NO ACUTE EVENTS OVERNIGHT, PT SHOWS SIGNS OF IMPROVEMENT. HE IS MORE ALERT AND MAKING CLEAR SENTENCES. AFEBRILE. O2 REQURIEMENTS HAVE DECREASED TO 3L NC FROM 15L NC; CONT TO COUGH UP SPUTUM PLUGS. HR 60-80'S. SBP 110-150'S. HE IS BECOMING LESS INCONTINENT AND ABLE TO TELL STAFF THAT HE NEEDS TO URINATE. NO C/O PAIN TO ABD. SLOW STEADY OUTPUT FROM RAFIA DRIAN; NO DRAINAGE NOTED TO OTHER INCISION SITES. WILL REPORT TO AM RN WHEN AVAILABLE.
--- NOTE | 2023-02-24 07:00 | NUR ---
ASSUMPTION OF CARE BEDSIDE REPORT RECEIVED FROM MATTHEW BREAUX. PT IS ALERT, PARTICIPATING IN CONVERSATION. HE IS CURRENTLY ON RA WITH SPO2 >95%. DENIES SOB. SINUS RHTYHM ON MONITOR WITH RATE 60S. SBP 130S. INCISION SITES VISUALIZED WITH PREVIOUS RN. DEBBIE DRAIN WITH SEROSANGUINEOUS DRAINAGE. BED IN LOW POSITION AND CALL LIGHT WITHIN REACH.
--- NOTE | 2023-02-24 10:23 | NUR ---
TRANSFER PT TRANSFERRED TO 214. BELONGINGS TAKEN WITH PT. DAUGHTER TONIA UPDATED.
--- NOTE | 2023-02-24 10:46 | NUR ---
ARRIVAL TO ROOM PT ARRIVED TO 214 FROM ICU AT APPROXIMATELY 1000. PT ALERT AND ORIENTED UPON ARRIVAL. PT NOTED TO HAVE INCREASED RESP RATE AND EFFORT WITH ANY MOVEMENT, LUNG SOUNDS ARE DIM THROUGHOUT AND RHONCUS IN THE BASES. SKIN CHECKED WITH AMY THEODORE. PT HAS SCATTERED SCABS TO BLE, SCATTERED BRUISES, LAP SITES X3 CLOSED WITH WOUND GLUE AND SCANT BRUISING AROUND LAP SITES. ONE LAP SITE IS COVERED BY ILEOSTOMY WAFFER. RAFIA DRAIN SITE TO RUQ WNL, CHG TEGADERM IN PLACE OVER DRAIN SITE. SEROSANGUINOUS/YELLOW BILE OUT OF RAFIA DRAIN SITE. ILEOSTOMY PUTTING OUT FLATUS AND GREEN LIQUID STOOL. TELE IN PLACE AND VERIFIED WITH Dajiabao, PT NSR AT 76. SCD'S IN PLACE. SUCTION SET UP FOR PT AND WITHIN REACH. CALL LIGHT WITHIN REACH. PT EDUCATED TO USE INCENTIVE SPIROMETER AND HE DEMONSTRATED USE. PT EDUCATED TO USE IS WITH EVERY COMMERCIAL BREAK, PT IS LEGALLY BLIND AND UNABLE TO SEE THE CLOCK BUT IS ABLE TO HEAR TELEVISION. PT EDUCATED THAT THE GOAL IS FOR HIM TO GET OOB AND SIT UP TO THE CHIAR TODAY. PT'S DAUGHTER WAS AT THE BEDSIDE FOR SUPPORT. PT IS ALERT ORIENTED AND PLEASANT.
[2023-02-25 02:08] VITALS: BP 123/57
--- NOTE | 2023-02-25 04:05 | NUR ---
SHIFT SUMMARY PATIENT IS AOX4, POD2 RUPTERED KEO. RAFIA WITH BROWN COLORED DRAINAGE. DRESSING IS C/D/I. X4 LAP SITES BUFFING WHEEL OPERATOR WITH WOUND GLUE. PATIENT ILLEOSTOMY WITH ADEQUATE OUTPUT. VOIDING WELL. IV FLUIDS INFUSING. MEDICATED FOR PAIN W/ TYLENOL.USING IS AND FLUTTER VALVE. DENIES SOB. ABLE TO REPOSITION AND MAKE NEEDS KNOWN. VSS, WILL REPORT TO DAY RN.
[2023-02-25 05:44] LABS: BASOPHILS ABSOLUTE AUTO 0.02 K/mm3 (0.00-0.23); BASOPHILS PERCENT AUTO 0 % (0-2); EOSINOPHILS PERCENT AUTO 0 % (0-6); Hemoglobin 9.1 g/dL (13.5-17.5); IMMATURE GRAN ABSOLUTE AUTO 0.14 K/mm3 (0.00-0.10); IMMATURE GRAN PERCENT AUTO 1 % (0-1); LYMPHOCYTES ABSOLUTE AUTO 0.49 K/mm3 (0.84-5.20); LYMPHOCYTES PERCENT AUTO 4 % (21-46); MONOCYTES ABSOLUTE AUTO 0.58 K/mm3 (0.16-1.47); MONOCYTES PERCENT AUTO 5 % (4-13); Mean Corpuscular HGB 33.2 pg (26.0-34.0); Mean Corpuscular HGB Conc 33.7 g/dL (31.5-36.5); Mean Corpuscular Volume 99 fL (80-100); Mean Platelet Volume 10.4 fL (9.1-12.4); NEUTROPHILS PERCENT AUTO 90 % (41-73); NRBC ABSOLUTE 0.03 K/mm3 (0.00-0.02); NRBC Auto 0.2 /100 WBC (0.0-0.2); Platelet Count 190 K/mm3 (150-400); RDW Coefficient Variation 19.6 % (11.7-14.2); RDW Standard Deviation 71.3 fL (35.1-46.3); Red Blood Cell Count 2.74 M/mm3 (4.30-5.90); White Blood Cell Count 12.83 K/mm3 (4.00-11.30)
[2023-02-25 06:06] LABS: Albumin/Globulin Ratio 0.6 (0.8-1.8); Bilirubin, Total 0.3 mg/dL (0.1-1.0); Bun/Creatinine Ratio 23.2 (12.0-20.0); Calcium, Blood 8.2 mg/dL (8.5-10.1); Creatinine, Blood 1.9 mg/dL (0.60-1.20); Globulin, Blood 3.5 g/dL (2.2-4.0); Potassium, Blood 4.3 mmol/L (3.5-5.5); Total Protein, Blood 5.5 g/dL (6.4-8.2)
--- NOTE | 2023-02-25 07:00 | NUR ---
PT AND ROOM ASSESS FOR IGNITION SOURCES, NO FINDINGS.
[2023-02-25 07:23] VITALS: BP 120/52
[2023-02-25 15:23] VITALS: BP 116/58
--- NOTE | 2023-02-25 18:30 | NUR ---
SHIFT SUMMARY PT IS POD#2 FROM LAP KEO. RAFIA DRAIN CONTINUES TO PUT OUT BILE, DR. TRENT AWARE AND STATED THIS FINDING IS EXPECTED AT THIS TIME. PT DENIES PAIN. HE IS TOLERATING PO. PT WAS RELUCTANT TO GET OOB, HOWEVER HE DID SIT UP TO THE CHAIR FOR DINNER. PT IS REMAINING IN THE HOSPITAL FOR IV ABX R/T ELEVATED WBC. PT HAS BEEN ENCOURAGED TO USE INCENTIVE SPIROMETER T/O THE DAY, HE IS COMPLAINT WHEN REMINDED BUT IS FORGETFUL.
[2023-02-25 20:02] VITALS: BP 119/48
[2023-02-26 02:47] VITALS: BP 122/54
[2023-02-26 04:43] LABS: BASOPHILS ABSOLUTE AUTO 0.01 K/mm3 (0.00-0.23); BASOPHILS PERCENT AUTO 0 % (0-2); EOSINOPHILS ABSOLUTE AUTO 0.02 K/mm3 (0.00-0.68); EOSINOPHILS PERCENT AUTO 0 % (0-6); Hematocrit 26.9 % (37.0-53.0); Hemoglobin 8.8 g/dL (13.5-17.5); IMMATURE GRAN ABSOLUTE AUTO 0.27 K/mm3 (0.00-0.10); IMMATURE GRAN PERCENT AUTO 3 % (0-1); LYMPHOCYTES PERCENT AUTO 7 % (21-46); MONOCYTES ABSOLUTE AUTO 1.02 K/mm3 (0.16-1.47); MONOCYTES PERCENT AUTO 10 % (4-13); Mean Corpuscular HGB 32.8 pg (26.0-34.0); Mean Corpuscular HGB Conc 32.7 g/dL (31.5-36.5); Mean Corpuscular Volume 100 fL (80-100); Mean Platelet Volume 9.9 fL (9.1-12.4); NEUTROPHILS ABSOLUTE AUTO 8.71 K/mm3 (1.96-9.15); NEUTROPHILS PERCENT AUTO 81 % (41-73); NRBC ABSOLUTE 0.03 K/mm3 (0.00-0.02); NRBC Auto 0.3 /100 WBC (0.0-0.2); Platelet Count 196 K/mm3 (150-400); RDW Coefficient Variation 18.9 % (11.7-14.2); RDW Standard Deviation 69.4 fL (35.1-46.3); Red Blood Cell Count 2.68 M/mm3 (4.30-5.90); White Blood Cell Count 10.73 K/mm3 (4.00-11.30)
[2023-02-26 05:00] LABS: Bun/Creatinine Ratio 22.6 (12.0-20.0); Creatinine, Blood 1.95 mg/dL (0.60-1.20)
--- NOTE | 2023-02-26 05:20 | NUR ---
SHIFT SUMMARY AOX4. VSS. ANSWERS QUESTIONS & FOLLOW DIRECTIONS. POD 3-LAP KEO, 3 LAP SITES C/D/I. RAFIA DRAIN R SIDE ABD c 20ML YELLOW/BROWN DRAINAGE & SCANT TONY BLOOD, CHANGED TEGADERM DRESSING. DENIES N/V, [place] REG DIET, ACTIVE BT, HAD 450ML LIQUID BROWN STOOL OUT ILEOSTOMY. REPORTED PAIN IN SHOULDER FROM READJUSTING SELF IN BED 1x, MEDICATED c JOANNA TYLENOL & NO FURTHER DISCOMFORT REPORTED. PT REFUSED TO GET OOB FOR WALK TONIGHT. CALL LIGHT IN REACH & PT ABLE TO MAKE NEEDS KNOWN. WILL MONITOR.
[2023-02-26 07:12] VITALS: BP 152/65
[2023-02-26] MEDS ORDERED: ALBU90OI INH (12:41)
[2023-02-26] MEDS ORDERED: AMOCLA875 PO (12:41)
[2023-02-26] MEDS ORDERED: GUAI600T33 PO (12:42)
--- NOTE | 2023-02-26 15:43 | NUR ---
DISCHARGE NOTE, LATE ENTRY PT WAS DISCHARGED TO HOME WITH HOME HEALTH AT 1420. HE WAS PROPELLED BY LENS MOLDER PUSHING A WHEELCHAIR TO PRIVATE CAR, DRIVEN BY DAUGHTER JASMIN. HIS IV WAS REMOVED WIHTOUT INCIDENT, SALES OPERATIONS ANALYST ALLI WAS NOTIFIED THAT TELE WAS REMOVED FOR DISCHARGED. RN COMPLETED TEACHING AND DRESSED INCISION SITE FOR RAFIA DRAIN, DEMONSTRATING CARE TO DAUGHTER JASMIN, INCLUDING TO CHANGE DRESSING OFTEN AND MONITOR THE AMOUNT OF DRAINAGE WHEN EMPTYING THE DRAIN, KEEPING THE BULB COMPRESSED. RN EMPTIED PT'S ILEOSTOMY BAG, AND ADVISED TO KEEP DRESSING TO RAFIA DRAIN CLEAN OF STOOL. RN FAXED ALL MEDICATIONS NEEDED TO [facility], PER JASMIN'S REQUEST. RN COMPLETED DISCHARGE INSTRUCTIONS INCLUDING CALLING TO SCHEDULE FOLLOWUP APPTS WITH DR. URBINA AND DR. TRENT. JASMIN HAD NO FURTHER QUESTIONS, PT TOLERATED DISCHARGE PROCESS WELL.
== END 2023-02-26 14:15 | disposition home or self-care (01) | DRG 417 ==
LOC: ER 02:04 → SURS 02:05 → MEDS 02:05 → SURS 09:16 → ICUE 02-23 23:46 → SURS 02-24 09:55 → ICUE 02-24 10:49 → SURS 02-24 10:50
PROVIDERS: Emergency Medicine; Internal Medicine; Surgery; ADMIT Internal Medicine
PROC: 8E0W4CZ Robotic Assisted Procedure of Trunk Region, Percutaneous Endoscopic Approach (ICD-10-PCS; 2023-02-23)
PROC: BF13YZZ Fluoroscopy of Gallbladder and Bile Ducts using Other Contrast (ICD-10-PCS; 2023-02-23)
PROC: 0FT44ZZ Resection of Gallbladder, Percutaneous Endoscopic Approach (ICD-10-PCS; principal; 2023-02-23 18:00)
PROC: 30233N1 Transfusion of Nonautologous Red Blood Cells into Peripheral Vein, Percutaneous Approach (ICD-10-PCS; 2023-02-24)
DX: K80.12 Calculus of gallbladder with acute and chronic cholecystitis without obstruction (principal); J18.9 Pneumonia, unspecified organism; J96.01 Acute respiratory failure with hypoxia; K65.3 Choleperitonitis; D62 Acute posthemorrhagic anemia; K82.A2 Perforation of gallbladder in cholecystitis; J98.11 Atelectasis; E78.5 Hyperlipidemia, unspecified; I12.9 Hypertensive chronic kidney disease with stage 1 through stage 4 chronic kidney disease, or unspecified chronic kidney disease; D63.1 Anemia in chronic kidney disease; Z66 Do not resuscitate; H35.30 Unspecified macular degeneration; N18.30 Chronic kidney disease, stage 3 unspecified; H40.9 Unspecified glaucoma; M10.9 Gout, unspecified; K21.9 Gastro-esophageal reflux disease without esophagitis; K40.20 Bilateral inguinal hernia, without obstruction or gangrene, not specified as recurrent; N40.0 Benign prostatic hyperplasia without lower urinary tract symptoms; Z79.899 Other long term (current) drug therapy; Z85.46 Personal history of malignant neoplasm of prostate; Z85.038 Personal history of other malignant neoplasm of large intestine; Z98.52 Vasectomy status; Z87.891 Personal history of nicotine dependence; Z98.890 Other specified postprocedural states; Z93.2 Ileostomy status
CPT/HCPCS: 36415; 71045; 71046; 74177; 74300; 76705; 78226; 80048; 80053; 83690; 84145; 85025; 85027; 86850; 86900; 86901; 86923; 87070; 87077; 87147; 87186; 87205; 88304; 94640; 94664; 94760; 96365-59; 96375; 96376; 97110; 97116; 97162; 97165; 99285-25; A9270; A9537; C1894; J0456; J0696; J1100; J1170; J1940; J2270; J2371; J2405; J2704; J3010; J7030; J7050; P9016; Q9967

== ENCOUNTER → 2023-05-16 | Outpatient (CLI) | payer OTHER ==
[~2023-05-16] MED LIST changes: +ALBU90OI INH; +AMOCLA875 PO; +GUAI600T33 PO
[2023-05-16 19:50] LABS: Alanine Aminotransfer (ALT/SGP 40 U/L (12-78); Albumin, Blood 3.4 g/dL (3.4-5.0); Albumin/Globulin Ratio 1.1 (0.8-1.8); Alk Phos 87 U/L (50-136); Anion Gap 6 mmol/L (6-16); Aspartate Aminotrans (AST/SGOT 25 U/L (12-37); Bilirubin, Direct <0.1 mg/dL (0.0-0.3); Bilirubin, Indirect Unable to Calculate mg/dL (0.1-0.7); Bilirubin, Total 0.2 mg/dL (0.1-1.0); Blood Urea Nitrogen 20 mg/dL (8-24); Bun/Creatinine Ratio 9.7 (12.0-20.0); CO2, Blood 23 mmol/L (21-32); Chloride, Blood 115 mmol/L (98-108); Creatinine, Blood 2.06 mg/dL (0.60-1.20); Globulin, Blood 3.1 g/dL (2.2-4.0); Glomerular Filtration Rate 31 (60-); Glucose, Blood 153 mg/dL (70-99); Phosphorus, Blood 3.1 mg/dL (2.5-4.9); Potassium, Blood 4.4 mmol/L (3.5-5.5); Sodium, Blood 144 mmol/L (136-145); Total Protein, Blood 6.5 g/dL (6.4-8.2)
== END ==
LOC: LAB 16:00 → LAB SHORT 16:00
PROVIDERS: Internal Medicine Hematology & Oncology
DX: C18.9 Malignant neoplasm of colon, unspecified (principal)
CPT/HCPCS: 80053; 80069; 82248; 82378; 84100

== ENCOUNTER → 2024-04-13 | Outpatient (CLI) | payer OTHER ==
[2024-04-17 09:34] LABS: CORTISOL,U FREE - RATIO TO CRT 5.29 ug/g CRT; CORTISOL,URINE FREE - PER 24H 4.2 ug/d (<=60.0); CORTISOL,URN FREE - PER VOLUME 5.61 ug/L; CREATININE,URINE - PER 24H 784 mg/d (600-2000); CREATININE,URINE - PER VOLUME 106 mg/dL; HOURS COLLECTED 24 hr; TOTAL VOLUME 740 mL
== END ==
LOC: LAB 14:34 → LAB SHORT 14:34 → LAB FUT 04-11 14:05
PROVIDERS: Internal Medicine Nephrology
DX: N18.30 Chronic kidney disease, stage 3 unspecified (principal); D75.1 Secondary polycythemia; N25.81 Secondary hyperparathyroidism of renal origin; E78.00 Pure hypercholesterolemia, unspecified; E29.1 Testicular hypofunction; R94.6 Abnormal results of thyroid function studies; R94.5 Abnormal results of liver function studies; R76.9 Abnormal immunological finding in serum, unspecified
CPT/HCPCS: 81050; 82530

== ENCOUNTER 2024-06-21 15:24 | Inpatient (IN) | payer OTHER ==
[~2024-06-21] VITALS: Ht 170.2 cm; Wt 80.6 kg
[~2024-06-21 15:24] MED LIST changes: -ALLO300 PO; -TIMO.25OPS BOTHEYES; +TIMO.5OPSO BOTHEYES
[2024-06-21 16:46] LABS: BASOPHILS ABSOLUTE AUTO 0.05 K/mm3 (0.00-0.23); BASOPHILS PERCENT AUTO 1 % (0-2); EOSINOPHILS ABSOLUTE AUTO 0.72 K/mm3 (0.00-0.68); EOSINOPHILS PERCENT AUTO 12 % (0-6); Hematocrit 32.5 % (37.0-53.0); Hemoglobin 10.7 g/dL (13.5-17.5); IMMATURE GRAN ABSOLUTE AUTO 0.03 K/mm3 (0.00-0.10); IMMATURE GRAN PERCENT AUTO 1 % (0-1); LYMPHOCYTES ABSOLUTE AUTO 0.82 K/mm3 (0.84-5.20); LYMPHOCYTES PERCENT AUTO 13 % (21-46); MONOCYTES ABSOLUTE AUTO 0.72 K/mm3 (0.16-1.47); MONOCYTES PERCENT AUTO 12 % (4-13); Mean Corpuscular HGB 37.3 pg (26.0-34.0); Mean Corpuscular HGB Conc 32.9 g/dL (31.5-36.5); Mean Corpuscular Volume 113 fL (80-100); Mean Platelet Volume 10.9 fL (9.1-12.4); NEUTROPHILS ABSOLUTE AUTO 3.79 K/mm3 (1.96-9.15); NEUTROPHILS PERCENT AUTO 62 % (41-73); Platelet Count 119 K/mm3 (150-400); RDW Coefficient Variation 14.9 % (11.7-14.2); RDW Standard Deviation 62.9 fL (35.1-46.3); Red Blood Cell Count 2.87 M/mm3 (4.30-5.90); White Blood Cell Count 6.13 K/mm3 (4.00-11.30)
[2024-06-21] MEDS ORDERED: FLU VACC TS2024-25(6MOS UP)/PF 45 MCG/0.5 ML SYRINGE IM ONE (20:35)
[2024-06-21 21:53] LABS: Source, Urine Clean Catch
[2024-06-21] MEDS ORDERED: LOSA25 PO (21:58)
[2024-06-21] MEDS ORDERED: LOKELMA10 GM PO (21:59)
[2024-06-21 22:04] LABS: Bilirubin, Urine Neg (Neg); Blood, Urine 1+ (Neg); Glucose Qualitative, Urine Neg (Neg); Ketones, Urine Neg (Neg); Leukocyte Esterase, Urine 1+ (Neg); Nitrite, Urine Neg (Neg); Protein, Urine 2+ (Neg); Urobilinogen, Urine NORM (Normal)
[2024-06-21 22:16] LABS: Appearance, Urine Hazy (Clear); Color, Urine Pale Yellow (P-Yellow)
[2024-06-21 22:17] LABS: Amorphous Light (0-Heavy); Bacteria Mod /hpf; Granular Casts 0-2 /lpf (0); Red Blood Cells, Urine 0-2 /hpf (0-2); Squamous Epithelial Cells Mod /hpf (Few)
[2024-06-21 22:34] VITALS: BP 181/64
--- NOTE | 2024-06-21 23:39 | NUR ---
@ 2210 SBAR RECEIVED OVER THE PHONE FROM ER/ SAEID STILES. @ 222 PT ARRIVED TO MEDICAL FLOOR RM#[id number] IN A W/C AND TRANSFERRED WITH SBA TO HOSPITAL BED. SAEID JESUS COMPLETED THE ADMISSION ASSESSMENT. SKIN CHECK COMPLETED WITH THIS GASOLINE POWER SHOVEL OPERATOR. PT IS SLIGHTLY [place]IL[place]AT. A&O X4, VERY PLEASANT. PT IS COOPERATIVE WITH CARE AND ABLE TO MAKE HIS NEEDS KNOWN. OSTOMY ON RLQ, INTACT, DRAINING SOFT LIGHT BROWN STOOL. 1-PERSON ASSIST TO THE RESTROOM. URINAL BY THE BEDSIDE. PT REPORTS USES CANE AT HOME TO AMBULATE. PT REPORTS DRINKS DAILY BETWEEN 1-3 SHOTS OF WHISKEY. PT IS ON RA, O2 SAT'S @100%. BEDISIDE ULTRASOUND KIDNEYS/BLADDER WAS COMPLETED THIS EVENING. PT WAS EDUCATED CARDIAC TECHNICIAN LIGHT. BED AT THE LOWEST POSITION, CALL LIGHT WITHIN REACH.
[2024-06-22] VITALS (8 sets, daily range): BP systolic 125–166; BP diastolic 47–65
[2024-06-22 05:44] LABS: Hemoglobin 9.9 g/dL (13.5-17.5)
[2024-06-22] MEDS ORDERED: Pantoprazole Sodium 40 MG Tab PO SCH (06:00)
[2024-06-22 06:01] LABS: Albumin, Blood 3.1 g/dL (3.4-5.0); Anion Gap 15 mmol/L (3-11); Blood Urea Nitrogen 59 mg/dL (8-24); CO2, Blood 13 mmol/L (21-32); Calcium, Blood 8.5 mg/dL (8.5-10.1); Chloride, Blood 116 mmol/L (98-108); Creatinine, Blood 4.92 mg/dL (0.60-1.20); Glomerular Filtration Rate 11 (60-); Glucose, Blood 83 mg/dL (70-99); Magnesium, Blood 2.4 mg/dL (1.6-2.4); Phosphorus, Blood 4.9 mg/dL (2.5-4.9); Potassium, Blood 4.9 mmol/L (3.5-5.5); Sodium, Blood 139 mmol/L (136-145)
[2024-06-22] MEDS ORDERED: Albuterol HFA200 ACT/6.7 GM INH INH PRN (08:40)
[2024-06-22] MEDS ORDERED: AmLODIPine Besylate 5 MG Tab PO SCH (09:00)
[2024-06-22] MEDS ORDERED: Heparin Sodium 5000 Units/ML 1ML MDV SC SCH (09:00)
[2024-06-22] MEDS ORDERED: Sodium Bicarbonate 650 MG Tab PO SCH (09:00)
[2024-06-22] MEDS ORDERED: Docusate Sodium 100 MG Cap PO SCH (09:00)
[2024-06-22] MEDS ORDERED: Tamsulosin HCl 0.4 MG Cap PO SCH (09:00)
[2024-06-22] MEDS ORDERED: Ferrous Sulfate 325 MG Tab PO SCH (09:00)
[2024-06-22] MEDS ORDERED: Atorvastatin 40 MG Tab PO SCH (09:00)
[2024-06-22] MEDS ORDERED: Timolol 0.25% Opth Soln 5 ml BOTHEYES SCH (09:00)
[2024-06-22] MEDS ORDERED: Finasteride 5 MG Tab PO SCH (09:00)
[2024-06-22] MEDS ORDERED: Metoprolol Succinate 25 MG TABCR PO SCH (09:00)
[2024-06-22] MEDS ORDERED: Heparin Sodium 1000 Units/ML 10ML MDV ONE (14:09)
[2024-06-22] MEDS ORDERED: NS 250 ML IV ONE (14:09)
[2024-06-22] MEDS ORDERED: Midazolam HCl 1MG / ML 2ML Vial ONE (14:23)
[2024-06-22] MEDS ORDERED: NS 1,000 ML IV ONE (14:23)
[2024-06-22] MEDS ORDERED: FentaNYL Citrate 50 MCG/ML 2 ML Injection ONE (14:23)
[2024-06-22] MEDS ORDERED: Heparin Sodium 10,000 Units/ML 1ML MDV ONE (14:57)
--- NOTE | 2024-06-22 15:59 | NUR ---
Pt. is awake in bed and welcomes this platform architect. During introductions the Pt. recalled this platform architect from a previous hospitalization. Facilited a life review and health update. Considered matters of family and antoine. Pt. displayed evidence of enagement and awareness. Prayed with Pt. Pt. verbalized gratitude fopr the spiritual care visit.
[2024-06-22] MEDS ORDERED: ALLO300 PO (18:13)
[2024-06-22] MEDS ORDERED: PROBIOTIC1 EA14 PO (18:15)
[2024-06-22] MEDS ORDERED: PRESERVISION A1 EAC4 PO (18:15)
[2024-06-22] MEDS ORDERED: THERA-D2000 UNIT PO (18:15)
[2024-06-22] MEDS ORDERED: CALCIUM-MAGNES1 EAC9 PO (18:16)
--- NOTE | 2024-06-22 18:28 | NUR ---
PATIENT IS ALERT AND ORIENTED AND COOPERATIVE WITH CARE. ON RA. DIALYSIS PORT PLACED THIS AFTERNOON. PO VITALS STABLE. PATIENT NAPPED FOLLOWING THE PROCEDURE. HE IS EATING DINNER NOW. NO C/O PAIN. NO BLEEDING AT THE INSERTION SITE AND DRESSING C/D/I. PATIENT WAS NOT DIALYZED TODAY. HE IS EAGER TO GO HOME. USES THE URINAL INDEPENDENTLY. FAMILY VISITED TODAY. WILL CONTINUE TO MONITOR
[2024-06-22] MEDS ORDERED: Sennosides 8.6 MG Tab PO SCH (21:00)
[2024-06-22] MEDS ORDERED: Latanoprost 0.005% Opth Soln 2.5 ML BOTHEYES SCH (21:00)
[2024-06-23] VITALS (16 sets, daily range): BP systolic 74–165; BP diastolic 37–90
[2024-06-23] MEDS ORDERED: Acetaminophen 325 MG TABLET PO PRN (00:05)
[2024-06-23] MEDS ORDERED: OxyCODONE HCL 5 MG TAB PO PRN (00:05)
[2024-06-23 05:14] LABS: Hematocrit 30.7 % (37.0-53.0); Hemoglobin 9.9 g/dL (13.5-17.5)
[2024-06-23 05:38] LABS: Albumin, Blood 3.1 g/dL (3.4-5.0); Anion Gap 14 mmol/L (3-11); Blood Urea Nitrogen 64 mg/dL (8-24); Bun/Creatinine Ratio 12.9 (12.0-20.0); CO2, Blood 13 mmol/L (21-32); Calcium, Blood 7.9 mg/dL (8.5-10.1); Chloride, Blood 119 mmol/L (98-108); Creatinine, Blood 4.96 mg/dL (0.60-1.20); Glomerular Filtration Rate 11 (60-); Glucose, Blood 96 mg/dL (70-99); Magnesium, Blood 2.6 mg/dL (1.6-2.4); Phosphorus, Blood 4.8 mg/dL (2.5-4.9); Potassium, Blood 4.9 mmol/L (3.5-5.5); Sodium, Blood 141 mmol/L (136-145)
--- NOTE | 2024-06-23 06:37 | NUR ---
SHIFT SUMMARY PT LYING IN BED. PLEASANT AND COOPERATIVE WITH CARE. PT STATED HIS SURGICAL SITE WAS BEGINNING TO HURT. PAIN MEDICATION ORDERED PRN. PT REPOSITIONED, OSTOMY BAG EMPTIED, AN MEDICATED FOR PAIN. DR DIETZ VISITED APPROX 0630. STATED TO PT, HE WILL BE GOING TO [facility] FOR FURTHER DIALYSIS. ORDER ENTERED BY THIS RN.
[2024-06-23] MEDS ORDERED: Anticoagulant Sod Citrate Soln 3 ML SYR INJ PRN (08:10)
[2024-06-23] MEDS ORDERED: Allopurinol 100 MG Tab PO SCH (09:00)
[2024-06-23] MEDS ORDERED: Cholecalciferol 1000 Unit Tablet (=25MCG) PO SCH (09:00)
[2024-06-23] MEDS ORDERED: Lactobacil 2-S.Thermo-Bifido 1 1 Cap PO SCH (09:00)
[2024-06-23] MEDS ORDERED: Beta-Carotene (A) W-C & E/Min 1 Tab PO SCH (09:00)
[2024-06-23] MEDS ORDERED: TRACE MINERALS PO SCH (09:00)
--- NOTE | 2024-06-23 17:24 | NUR ---
PT AOX4 AND COOPERATIVE OF CARE. PT WAS ABLE TO HAVE DIALYSIS TODAY. PT RESTED IN BED AFTER HE ARRIVED BACK AND CAN USE CALL LIGHT APPROPRIATELY. PT HAD BED BATH AND LET HIS NEEDS BE KNOWN. NO DISTRESS NOTED.
[2024-06-24] VITALS (15 sets, daily range): BP systolic 101–147; BP diastolic 39–63
--- NOTE | 2024-06-24 05:18 | NUR ---
PORT FOR DYALYSIS PLACED 06/23/24 IS TENDER. DRESSING IS CDI. AAOX3, USES CALL LIGHT APPROPRIATELY. LEGALLY BLIND. AMBULTAES WITH WALKER AND SBA. PT USED URINAL @ BEDSIDE THROUGHOUT NIGHT. R UPPER COLOSTOMY EMPIED X1, 300ML. PLAN FOR DYALISIS TODAY.
[2024-06-24 05:21] LABS: Hematocrit 28.2 % (37.0-53.0); Hemoglobin 9.5 g/dL (13.5-17.5); Mean Corpuscular HGB Conc 33.7 g/dL (31.5-36.5); Mean Corpuscular Volume 110 fL (80-100); Mean Platelet Volume 11.1 fL (9.1-12.4); NRBC ABSOLUTE 0.02 K/mm3 (0.00-0.02); NRBC Auto 0.4 /100 WBC (0.0-0.2); Platelet Count 82 K/mm3 (150-400); RDW Coefficient Variation 14.6 % (11.7-14.2); RDW Standard Deviation 58.3 fL (35.1-46.3); Red Blood Cell Count 2.57 M/mm3 (4.30-5.90); White Blood Cell Count 5.38 K/mm3 (4.00-11.30)
[2024-06-24 05:41] LABS: Albumin, Blood 2.9 g/dL (3.4-5.0); Anion Gap 12 mmol/L (3-11); Blood Urea Nitrogen 44 mg/dL (8-24); Bun/Creatinine Ratio 11.3 (12.0-20.0); CO2, Blood 26 mmol/L (21-32); Calcium, Blood 7.9 mg/dL (8.5-10.1); Chloride, Blood 106 mmol/L (98-108); Creatinine, Blood 3.91 mg/dL (0.60-1.20); Glomerular Filtration Rate 14 (60-); Glucose, Blood 98 mg/dL (70-99); Potassium, Blood 3.6 mmol/L (3.5-5.5); Sodium, Blood 140 mmol/L (136-145)
[2024-06-24] MEDS ORDERED: Albumin (Human) 25gm/100ml 100 ML IV SCH (07:15)
[2024-06-24] MEDS ORDERED: Anticoagulant Sod Citrate Soln 3 ML SYR INJ PRN (07:15)
[2024-06-24] MEDS ORDERED: Darbepoetin Alfa In Albumn Sol 40 MCG/0.4 ML SC SCH (16:00)
--- NOTE | 2024-06-24 16:35 | NUR ---
PT AOX4 AND COOPERATIVE OF CARE. PT HAD DIALYSIS TODAY AND TOLERATED WELL. HAS BEEN RESTING OFF AND ON WATCHING TV AND VISITING WITH A COUPLE VISITORS. PT IS ABLE TO USE CALL LIGHT APPROPRIATELY. NO DISTRESS NOTED WILL CONTINUE TO MONITOR.
[2024-06-25] VITALS (8 sets, daily range): BP systolic 85–144; BP diastolic 41–64
[2024-06-25 05:06] LABS: Hematocrit 21.6 % (37.0-53.0)
[2024-06-25 05:40] LABS: Albumin, Blood 3.2 g/dL (3.4-5.0); Anion Gap 13 mmol/L (3-11); Blood Urea Nitrogen 77 mg/dL (8-24); Bun/Creatinine Ratio 18.7 (12.0-20.0); CO2, Blood 29 mmol/L (21-32); Calcium, Blood 8.3 mg/dL (8.5-10.1); Chloride, Blood 101 mmol/L (98-108); Creatinine, Blood 4.11 mg/dL (0.60-1.20); Glomerular Filtration Rate 13 (60-); Glucose, Blood 101 mg/dL (70-99); Phosphorus, Blood 1.7 mg/dL (2.5-4.9); Potassium, Blood 3.7 mmol/L (3.5-5.5); Sodium, Blood 139 mmol/L (136-145)
--- NOTE | 2024-06-25 06:10 | NUR ---
AAOX3, [place] AND LEGALLY BLIND. PLEASANT AND COOPERATIVE WITH CARES, ALTHOUGH HE IS NOT INTERESTED IN PERFOMING OSTOMY CARE, "I'LL BE HOME TODAY AND I KNOW HOW TO." HE HAS NOT BEEN OUT OF BED THIS SHIFT.
[2024-06-25] MEDS ORDERED: Anticoagulant Sod Citrate Soln 3 ML SYR INJ PRN (07:10)
[2024-06-25] MEDS ORDERED: Albumin (Human) 25gm/100ml 100 ML IV SCH (07:15)
[2024-06-25 08:36] LABS: HEPATITIS B SURFACE ANTIBODY <3.10 IU/L
--- NOTE | 2024-06-25 09:42 | NUR ---
DIALYSIS NURSE REQUESTED PT TO BE PICKED UP EARLY. PT WAS ACTING VERY ODD AND STATED HE HAD TO GET OUT OF THERE THEN DID A LOT OF MUMBLING AND TOLD THEM HE HAD SOME PAIN IN HIS NECK. WHEN WE WENT DOWN TO PICK PT UP PT JUST SEEMS VERY TIRED AND LETHARGIC. HE WAS ABLE TO TELL ME WHERE HE WAS AND WHAT HE WAS SUPPOSED TO BE HAVING DONE. HE RECOGNIZED THIS MACHINE BRUSHER. PT RETURNED TO ROOM AND DR DSOUZA WAS NOTFIED AND INSTRUCTED TO JUST MONITOR PT CLOSELY. PT SETTLED INTO ROOM AND RESTING.
[2024-06-25 12:22] LABS: HEPATITIS A ANTIBODY, IGM Negative (Negative); HEPATITIS B CORE ANTIBODY, IGM Negative (Negative); HEPATITIS B SURFACE ANTIGEN Negative (Negative); HEPATITIS C AB CIA INTERP Negative (Negative); HEPATITIS C ANTIBODY CIA INDEX 0.14 IV
--- NOTE | 2024-06-25 17:06 | NUR ---
PT AOX4 AND COOPERATIVE OF CARE. PT'S TIREDNESS CONTINUED FOR MOST OF THE DAY. SEEMS TO HAVE IMPROVED THE DAY HAS PROGRESSED. PT IS RESTING IN BED CURRENTLY AND IS ABLE TO MAKE NEEDS KNOWN. CALL LIGHT WITHIN REACH WILL CONTINUE TO MONITOR.
[2024-06-26] VITALS (19 sets, daily range): BP systolic 81–136; BP diastolic 33–60
--- NOTE | 2024-06-26 05:00 | NUR ---
AAOX3, VERY TIRED. PT DID NOT GET OUT OF BED THIS SHFIT. DYALYSIS SCHEDULED TODAY IF PT CAN TOLERATE. NO ISSUES OR CONCERNS THROUGHOUT THE NIGHT.
[2024-06-26 05:01] LABS: Hematocrit 19.3 % (37.0-53.0); Hemoglobin 6.3 g/dL (13.5-17.5)
[2024-06-26 05:53] LABS: Albumin, Blood 3.2 g/dL (3.4-5.0); Anion Gap 13 mmol/L (3-11); Blood Urea Nitrogen 79 mg/dL (8-24); Bun/Creatinine Ratio 16.2 (12.0-20.0); CO2, Blood 28 mmol/L (21-32); Calcium, Blood 8.4 mg/dL (8.5-10.1); Chloride, Blood 104 mmol/L (98-108); Creatinine, Blood 4.87 mg/dL (0.60-1.20); Glomerular Filtration Rate 11 (60-); Glucose, Blood 103 mg/dL (70-99); Magnesium, Blood 1.9 mg/dL (1.6-2.4); Phosphorus, Blood 2.1 mg/dL (2.5-4.9); Potassium, Blood 3.7 mmol/L (3.5-5.5); Sodium, Blood 141 mmol/L (136-145)
[2024-06-26] MEDS ORDERED: Sodium Phosphate 10 MM in Dextrose 5% 250 ML IV STA (06:30)
[2024-06-26 06:37] LABS: Percent Saturation 16.7 % (20.0-50.0)
[2024-06-26] MEDS ORDERED: Anticoagulant Sod Citrate Soln 3 ML SYR INJ PRN (07:15)
--- NOTE | 2024-06-26 08:37 | NUR ---
NOTES PT WHEELED BY BED TO DIALYSIS. HELD B/P MEDS THIS AM. DR. DSOUZA NOTIFIED TO GO OVER BLOOD CONSENT FORM FOR PT.
[2024-06-26] MEDS ORDERED: Sod Ferric Gluc Complx/Sucrose 125 MG in NS 100 ML IV SCH ×2 (09:00→21:00)
[2024-06-26] MEDS ORDERED: NS 250 ML IV PRN (11:50)
--- NOTE | 2024-06-26 14:01 | NUR ---
NOTE BLOOD TRANFUSION INFUSING. RECIEVED 2 RN CHECK BY MARGUERITE RN'S. PT TOLERATING INFUSION REPORTING NO S/S OF TRANFSUSION REACTION.
--- NOTE | 2024-06-26 18:42 | NUR ---
SHIFT SUMMARY PT A&OX4. PT ADMITTED DUE TO ERSD NEEDING DIALYSIS. PT [place], AND LEGALLY BLIND. PT REPORTED NO PAIN. PT RECEIVED DIALYSIS THIS AM. PT RECEIVED ONE PACKED RBC. PT REPORTED NO S/S OF REACTION. VSS. PT AMBULATES WITH CANE AT BASELINE. PT HAS DIALYSIS PORT ON R CHEST, C/D/I. PT EATS ADEQUATE. PT HAS OSTOMY ON R ABD, BURPS NEEDED, OUTPUT BROWN. PT REPOSITIONED Q2 HRS. LOW URINE OUTPUT. PT CALLS APPROPRIATE AND CALL LIGHT IN REACH.
[2024-06-27 00:01] VITALS: BP 130/45
[2024-06-27 01:06] VITALS: BP 140/48
[2024-06-27 02:11] VITALS: BP 122/44
[2024-06-27 05:17] LABS: Hemoglobin 8.7 g/dL (13.5-17.5); Mean Corpuscular HGB 34.7 pg (26.0-34.0); Mean Corpuscular HGB Conc 33.5 g/dL (31.5-36.5); Mean Platelet Volume 11.5 fL (9.1-12.4); NRBC Auto 1.5 /100 WBC (0.0-0.2); Platelet Count 71 K/mm3 (150-400); RDW Coefficient Variation 21.4 % (11.7-14.2); RDW Standard Deviation 77.6 fL (35.1-46.3); Red Blood Cell Count 2.51 M/mm3 (4.30-5.90); White Blood Cell Count 6.73 K/mm3 (4.00-11.30)
[2024-06-27 05:34] LABS: Albumin, Blood 3.5 g/dL (3.4-5.0); Anion Gap 11 mmol/L (3-11); Blood Urea Nitrogen 42 mg/dL (8-24); Bun/Creatinine Ratio 11.2 (12.0-20.0); CO2, Blood 31 mmol/L (21-32); Calcium, Blood 8.3 mg/dL (8.5-10.1); Chloride, Blood 105 mmol/L (98-108); Creatinine, Blood 3.76 mg/dL (0.60-1.20); Glomerular Filtration Rate 15 (60-); Glucose, Blood 103 mg/dL (70-99); Magnesium, Blood 1.9 mg/dL (1.6-2.4); Phosphorus, Blood 3.4 mg/dL (2.5-4.9); Potassium, Blood 3.3 mmol/L (3.5-5.5); Sodium, Blood 144 mmol/L (136-145)
[2024-06-27 05:45] LABS: Mean Corpuscular Volume 104 fL (80-100)
[2024-06-27] MEDS ORDERED: Potassium Chloride 20 MEQ TabCR PO ONE (05:45)
[2024-06-27 07:18] VITALS: BP 132/43
--- NOTE | 2024-06-27 08:15 | NUR ---
SHIFT SUMMARY: A&Ox4, PLEASANT AND COOPERATIVE WITH CARE. VSS ON RA. NO C/O CHEST PAIN, PRESSURE OR SOB. DENIES PAIN. TOLERATING A RENAL DIET. TAKES MEDS WHOLE WITH FLUIDS. VOIDING IN URINAL INDEPENDENTLY IN BED. VOIDING ADEQUATE AMOUNTS OF CONCENTRATED YELLOW URINE. COLOSTOMY WITH MODERATE AMOUNTS OF MUSHY BROWN STOOL. PT USES A CANE AT BASELINE FOR AMBULATION, NOOB THIS SHIFT. REPOSITIONS SELF IN BED. BED IN LOWEST POSITION, CALL LIGHT WITHIN REACH.
[2024-06-27 09:11] LABS: HBV CORE ANTIBODIES,TOTAL Negative (Negative)
[2024-06-27 16:11] VITALS: BP 134/63
--- NOTE | 2024-06-27 17:05 | NUR ---
SHIFT SUMMARY: NO EVENTS OR CHANGES WITH THE PATIENT THROUGHOUT THE SHIFT. HE HAS BEEN A&OX4/CALLS APPROPRIATELY AND IS A 1 PERSON ASSIST. THE PLAN IS FOR HIM TO HAVE HEMODIALYSIS TOMORROW 06/28/24 AND BE DISCHARGED AFTERWARDS. PATIENT DOESN'T REPORT AND COMPLAINTS. HE IS IN BED, CALL LIGHT WITHIN REACH, NO SIGNS OR SYMPTOMS OF DISTRESS, PLAN OF CARE ONGOING.
[2024-06-27 19:04] VITALS: BP 116/53
[2024-06-28] VITALS (14 sets, daily range): BP systolic 95–138; BP diastolic 46–58
[2024-06-28 05:16] LABS: Hemoglobin 9.4 g/dL (13.5-17.5)
[2024-06-28 05:53] LABS: Albumin, Blood 3.6 g/dL (3.4-5.0); Anion Gap 12 mmol/L (3-11); Blood Urea Nitrogen 49 mg/dL (8-24); Bun/Creatinine Ratio 11.7 (12.0-20.0); CO2, Blood 29 mmol/L (21-32); Calcium, Blood 8.9 mg/dL (8.5-10.1); Chloride, Blood 107 mmol/L (98-108); Creatinine, Blood 4.18 mg/dL (0.60-1.20); Glomerular Filtration Rate 13 (60-); Glucose, Blood 102 mg/dL (70-99); Phosphorus, Blood 3.8 mg/dL (2.5-4.9); Potassium, Blood 3.5 mmol/L (3.5-5.5); Sodium, Blood 144 mmol/L (136-145)
--- NOTE | 2024-06-28 06:28 | NUR ---
SHIFT SUMMARY: Pt is admitted for end stage renal and is a full code. Is alert and able to make needs known. ADLs have been 1p. Denies pain or discomfort when asked. Permacath to right chest dressing CDI. colostomy output is brown and is mix soft and liquid.
[2024-06-28] MEDS ORDERED: Anticoagulant Sod Citrate Soln 3 ML SYR INJ PRN (07:00)
[2024-06-28] MEDS ORDERED: AMLO10 PO (10:52)
[2024-06-28] MEDS ORDERED: COLACE100 MG PO (10:54)
[2024-06-28] MEDS ORDERED: FERSU300 PO (10:55)
[2024-06-28] MEDS ORDERED: METO25ER PO (10:56)
[2024-06-28] MEDS ORDERED: B COMPLEX WITH1 EACH PO (11:46)
--- NOTE | 2024-06-28 12:49 | NUR ---
DISCHARGE NOTE: PATIENT GOT DRESSED AND BELONGINGS GATHERED, PATIENT'S DAUGHTER JASMIN NOTIFIED, DISCHARGE WENT OVER WITH PATIENT AND HIS DAUGHTER. PATIENT WHEELED DOWN BY HIS DAUGHTER. NO SIGNS OR SYMPTOMS OF DISTRESS DURING DISCHARGE.
--- NOTE | 2024-06-28 14:01 | NUR ---
PHONE CALL FROM DAUGHTER TONIA STATING PATIENT TOE IS MORE BLACKENED THAN WHEN HE CAME INTO THE HOSPITAL AND HE IS C/O PAIN. THIS LATEX FASHIONS DESIGNER RECCOMENDED TO ELEVATE EXTREMETY ABOVE HEART, JAQUELINE REDNESS AND IF REDNESS GOES OUTSIDE THE MARKING TAKE PATIENT TO URGENT CARE OTHERWISE CALL PCP TOMORROW/TUESDAY.
== END 2024-06-28 11:53 | disposition home or self-care (01) | DRG 674 ==
LOC: ER 15:24 → MEDS 15:25 → ERHOLD 15:25 → MEDS 22:25
PROVIDERS: Emergency Medicine; Internal Medicine; Internal Medicine Nephrology; ADMIT Student in an Organized Health Care Education/Training Program
PROC: 0JH63XZ Insertion of Tunneled Vascular Access Device into Chest Subcutaneous Tissue and Fascia, Percutaneous Approach (ICD-10-PCS; principal; 2024-06-22)
PROC: 02HV33Z Insertion of Infusion Device into Superior Vena Cava, Percutaneous Approach (ICD-10-PCS; 2024-06-22)
PROC: B518ZZA Fluoroscopy of Superior Vena Cava, Guidance (ICD-10-PCS; 2024-06-22)
PROC: B548ZZA Ultrasonography of Superior Vena Cava, Guidance (ICD-10-PCS; 2024-06-22)
PROC: 5A1D70Z Performance of Urinary Filtration, Intermittent, Less than 6 Hours Per Day (ICD-10-PCS; 2024-06-23)
PROC: 30233J1 Transfusion of Nonautologous Serum Albumin into Peripheral Vein, Percutaneous Approach (ICD-10-PCS; 2024-06-25)
DX: I12.0 Hypertensive chronic kidney disease with stage 5 chronic kidney disease or end stage renal disease (principal); E87.20 Acidosis, unspecified; N18.6 End stage renal disease; Z28.21 Immunization not carried out because of patient refusal; E78.5 Hyperlipidemia, unspecified; N40.0 Benign prostatic hyperplasia without lower urinary tract symptoms; D63.1 Anemia in chronic kidney disease; M10.9 Gout, unspecified; D69.6 Thrombocytopenia, unspecified; H40.9 Unspecified glaucoma; H35.30 Unspecified macular degeneration; H54.8 Legal blindness, as defined in USA; E83.41 Hypermagnesemia; K21.9 Gastro-esophageal reflux disease without esophagitis; Z92.3 Personal history of irradiation; Z85.46 Personal history of malignant neoplasm of prostate; Z85.038 Personal history of other malignant neoplasm of large intestine; Z98.52 Vasectomy status; Z87.891 Personal history of nicotine dependence; R76.9 Abnormal immunological finding in serum, unspecified; R94.5 Abnormal results of liver function studies; R94.6 Abnormal results of thyroid function studies
CPT/HCPCS: 36415; 36430; 36558; 70450; 71045; 76770; 76937; 80069; 80074; 81001; 82728; 83540; 83550; 83735; 85014; 85018; 85025; 85027; 86704; 86850; 86900; 86901; 86923; 87086; 93005; 93010; 94760; 96372; 99152; 99284-25; A9270; C1750; C1769; C1894; G0378; J0881; J1644; J2250; J2916; J3010; J7030; J7050; J7060; P9016; P9047

== ENCOUNTER → 2024-12-10 | Outpatient (CLI) | payer OTHER ==
[~2024-12-10] MED LIST changes: +ALLO300 PO; +B COMPLEX WITH1 EACH PO; +CALCIUM-MAGNES1 EAC9 PO; +COLACE100 MG PO; +FERSU300 PO; +LOKELMA10 GM PO; +LOSA25 PO; +PRESERVISION A1 EAC4 PO; +PROBIOTIC1 EA14 PO; +THERA-D2000 UNIT PO
== END | disposition home or self-care (01) ==
LOC: LAB 07:57 → LAB SHORT 07:57
DX: M86.142 Other acute osteomyelitis, left hand (principal); L03.012 Cellulitis of left finger
CPT/HCPCS: 88304; 88312